=== PATIENT | male | born 1940 | race Caucasian/White ===

== ENCOUNTER 2017-08-09 11:06 | Emergency (ER) | payer MEDICARE, BC ==
[2017-08-09 12:04] LABS: Hematocrit 37 % (42-52); Hemoglobin 11.5 g/dl (14.0-18.0); Mean Corpuscular HGB Conc 31 g/dl (31-36); Mean Corpuscular Hemoglobin 25 pg (27-31); Mean Corpuscular Volume 82 fL (80-94); Mean Platelet Volume 8 um3 (7.4-10.4); Red Blood Count 4.57 10^6/ul (4.0-5.4); Red Cell Distribution Width 33 % (10.5-15); White Blood Count 54.2 10^3/ul (3.5-10.8)
[2017-08-09 12:06] LABS: Comments Flag Yes
[2017-08-09 12:19] LABS: BUN/Creatinine Ratio 21.4 (8-20); Calcium 8.4 mg/dL (8.6-10.3); EGFR African American 90.8 (>60); EGFR Non-African American 70.6 (>60); Potassium 4.2 mmol/L (3.5-5.0)
[2017-08-09 12:35] VITALS: BP 122/66
--- NOTE | 2017-08-09 12:36 | RAD ---
HISTORY: Left calf pain COMPARISONS: None relevant TECHNIQUE: Multiple transverse and longitudinal ultrasound images were obtained of the left lower extremity from the level of the common femoral vein inferiorly through to the infrapopliteal veins using grayscale, color Doppler, and spectral Doppler imaging with and without compression and with augmentation. Comparison images were obtained of the contralateral common femoral vein. FINDINGS: VEINS: There is chronic appearing nonocclusive thrombus of the left greater saphenous vein, 1.3 cm from the confluence of the common femoral vein. The remainder of the venous system of the left lower extremity is compressible throughout its course, with normal flow on color Doppler imaging and normal response to augmentation on spectral Doppler imaging. SOFT TISSUES: Unremarkable. OTHER FINDINGS: None. IMPRESSION: 1. CHRONIC APPEARING THROMBUS OF THE LEFT GREATER SAPHENOUS VEIN 1.3 CM FROM THE CONFLUENCE WITH THE COMMON FEMORAL VEIN. 2. OTHERWISE, NO LEFT LOWER EXTREMITY DEEP VEIN THROMBOSIS
[2017-08-09] MEDS ORDERED: Rivaroxaban TAB(*) 15 MG PO ONE (13:45)
[2017-08-09 14:12] LABS: Add Diff/Slide Review? Manual Diff Added
[2017-08-09 14:55] LABS: Immature Granulocytes 2 % (0-9); Neutrophil % 89 % (38-83)
[2017-08-09 14:56] LABS: Add Path Review? YES; Hypochromasia 1+
--- NOTE | 2017-08-09 22:05 | ED ---
Arlin Carr Thomas, scribed for Catracho Greenwood MD on 08/09/17 at 1124 . Lower Extremity - HPI Summary HPI Summary: The pt is a 76 y/o M presenting to the ED c/o left calf pain that began two days ago. The pain is rated 5/10. The left calf pain is constant, but it is aggravated by ambulation, weight bearing, and palpation. The pain is alleviated by nothing. The patient has treated the pain with elevation prior to arrival. Pt additionally c/o swelling to his entire LLE that began two days ago but spontaneously resolved. Pt denies CP and SOB. Patient denies any known trauma to his left leg. PMHx includes stomach cancer and he is under chemotherapy. PSHx includes a stent in the patients left groin. FHx includes DVT. The patient is not anticoagulated. - History of Current Complaint Chief Complaint: EDExtremityLower Stated Complaint: LT CALF/LEG PAIN Hx Obtained From: Patient Onset of Pain: Days - 2 Onset/Duration: Still Present Severity Currently: Moderate Pain Intensity: 5 Pain Scale Used: 0-10 Numeric Timing: Constant Location: Is Discrete @ - Left calf Associated Signs And Symptoms: Positive: Swelling - to LLE. Negative: Other - CP, SOB Aggravating Factor(s): Ambulation, Weight Bearing, Other - Palpation Alleviating Factor(s): Nothing - Allergies/Home Medications Allergies/Adverse Reactions: Allergies Allergy/AdvReac Type Severity Reaction Status Date / Time Amiodarone Allergy Hallucinati Verified 02/21/16 11:01 ons PMH/Surg Hx/FS Hx/Imm Hx Previously Healthy: No - Stomach cancer Endocrine/Hematology History: Denies: Hx Anticoagulant Therapy Cardiovascular History: Reports: Other Cardiovascular Problems/Disorders - Hx blood clot posterior neck; NEGATIVE: DVT Sensory History: Denies: Hx Legally Blind - Cancer History Cancer Type, Location and Year: Stomach cancer - Surgical History Surgery Procedure, Year, and Place: stent in left groin Infectious Disease History: No Infectious Disease History: Denies: Hx of Known/Suspected MRSA, Traveled Outside the [place] in Last 30 Days - Family History Known Family History: Positive: Other - DVT - Social History Lives: With Family Alcohol Use: None Substance Use Type: Reports: None Smoking Status (MU): Unknown if Ever Smoked Review of Systems Negative: Fever, Chills Negative: Erythema - eyes Negative: Sore Throat Negative: Chest Pain Negative: Shortness Of Breath, Cough Negative: Abdominal Pain, Vomiting, Nausea Negative: dysuria, hematuria Positive: Other - Left calf pain, LLE swelling (onset 2 days ago with spontaneous resolution). Negative: Myalgia, Edema - legs Negative: Rash Neurological: Other - NEGATIVE: dizziness All Other Systems Reviewed And Are Negative: Yes Physical Exam - Summary Physical Exam Summary: Constitutional: Well-developed, Well-nourished, Alert. (-) Distressed Skin: Warm, Dry HENT: Normocephalic; Atraumatic Eyes: Conjunctiva normal Neck: Musculoskeletal ROM normal neck. (-) JVD, (-) Stridor, (-) Tracheal deviation Cardio: Rhythm regular, rate normal, Heart sounds normal; Intact distal pulses; The pedal pulses are 2+ and symmetric. Radial pulses are 2+ and symmetric. (-) Murmur Pulmonary/Chest wall: Effort normal. (-) Respiratory distress, (-) Wheezes, (-) Rales Abd: Soft, (-) Tenderness, (-) Distension, (-) Guarding, (-) Rebound Musculoskeletal: The patient has posterior calf pain on the left side. There is no appreciable edema. Lymph: (-) Cervical adenopathy Neuro: Alert, Oriented x3 Psych: Mood and affect Normal Triage Information Reviewed: Yes Vital Signs On Initial Exam: Initial Vitals Temp Pulse Resp BP Pulse Ox 98.7 F 74 18 145/80 98 08/09/17 11:09 08/09/17 11:09 08/09/17 11:09 08/09/17 11:09 08/09/17 11:09 Vital Signs Reviewed: Yes Diagnostics - Vital Signs Vital Signs Temp Pulse Resp BP Pulse Ox 08/09/17 11:09 98.7 F 74 18 145/80 98 - Laboratory Result Diagrams: 08/09/17 11:50 08/09/17 11:50 Lab Statement: Any lab studies that have been ordered have been reviewed, and results considered in the medical decision making process. - Additional Comments Diagnostic Additional Comments: Venous Doppler of the LLE. Interpreted by radiologist. Impression: 1. CHRONIC APPEARING THROMBUS OF THE LEFT GREATER SAPHENOUS VEIN 1.3 CM FROM THE CONFLUENCE WITH THE COMMON FEMORAL VEIN. 2. OTHERWISE, NO LEFT LOWER EXTREMITY DEEP VEIN THROMBOSIS. ED Physician has reviewed this report and agrees. Re-Evaluation - Re-Evaluation First Eval Re-Evaluation Time: 13:42 Change: Unchanged Comment: I confirmed that the patient is taking Neulasta. Lower Extremity Course/Dx - Course Assessment/Plan: The pt is a 76 y/o M presenting to the ED c/o left calf pain that began two days ago. The pain is rated 5/10. The left calf pain is constant , but it is aggravated by ambulation, weight bearing, and palpation. The pain is alleviated by nothing. The patient has treated the pain with elevation prior to arrival. Pt additionally c/o swelling to his entire LLE that began two days ago but spontaneously resolved. Pt denies CP and SOB. Patient denies any known trauma to his left leg. PMHx includes stomach cancer and he is under chemotherapy. PSHx includes a stent in the patients left groin. FHx includes DVT. The patient is not anticoagulated. Bloodwork shows WBC 54.2, Hgb 11.5, Hct 37, Sodium 132, Chloride 100, and Calcium 8.4. Venous Doppler of the LLE shows 1. CHRONIC APPEARING THROMBUS OF THE LEFT GREATER SAPHENOUS VEIN 1.3 CM FROM THE CONFLUENCE WITH THE COMMON FEMORAL VEIN. 2. OTHERWISE, NO LEFT LOWER EXTREMITY DEEP VEIN THROMBOSIS. The UpToDate treatment algorithm for superficial venous thrombus was utilized. Because the thrombus is within 5cm of the saphenofemoral junction, we will initiate anticoagulation. Even though this thrombus appears radiographically chronic, the symptoms were acute. Treatment guidelines are for 45 days and then a repeat examination. I consulted with Dr. Beck, the patients primary care physician, who agrees with anticoagulation for this presentation. I also consulted with Dr. Goel, oncology, who states that the patients white blood cell count is mostly likely responding to Neulasta. I confirmed this with the patient. In the ED course the patient was started on Xarelto. The patient is diagnosed with superficial venous thrombus. The patient is instructed to follow up with Dr. Angela in 2-3 days. The patient is prescribed Xarelto. Patient is agreeable with this plan. - Diagnoses Provider Diagnoses: Superficial venous thrombus - Physician Notifications Discussed Care Of Patient With: Sahil Beck Time Discussed With Above Provider: 13:26 Instructed by Provider To: Other - I consulted with Dr. Beck, the patient's primary care physician, who agrees with anticoagulation given this presentation. I also consluted at 13:[address] Goel, oncology, who beleives the patient's white blood cell count is responding with Neulasta, so we will verify that with the patient. Discharge - Discharge Plan Condition: Stable Disposition: HOME Prescriptions: Rivaroxaban [Xarelto Starter Pack 15 & 20 mg] 1 tab PO SEE INSTRUCTIONS #1 packet Patient Education Materials: Deep Venous Thrombosis (ED) Additional Instructions: Return to the emergency department immediately if you begin to experience chest pain shortness of breath, or new or worsening symptoms. Follow up with Dr. Angela in 2-3 days. The documentation as recorded by the Arlin salazar Thomas accurately reflects the service I personally performed and the decisions made by me, Catracho Greenwood MD.
== END 2017-08-09 14:02 | disposition home or self-care (01) ==
LOC: ED 11:06
DX: I82.812 Embolism and thrombosis of superficial veins of left lower extremity (principal); M79.662 Pain in left lower leg
CPT/HCPCS: 36415; 80048; 85025; 85060; 85610; 85730; 99282

== ENCOUNTER 2018-01-06 14:10 | Emergency (ER) | payer MEDICARE, BC ==
[2018-01-06 15:22] LABS: Hematocrit 39 % (42-52); Hemoglobin 12.8 g/dl (14.0-18.0); Mean Corpuscular HGB Conc 33 g/dl (31-36); Mean Corpuscular Hemoglobin 31 pg (27-31); Mean Corpuscular Volume 93 fL (80-94); Mean Platelet Volume 7.5 um3 (7.4-10.4); Platelet Count 156 10^3/ul (150-450); Red Blood Count 4.16 10^6/ul (4.0-5.4); Red Cell Distribution Width 25 % (10.5-15); White Blood Count 18.4 10^3/ul (3.5-10.8)
[2018-01-06 15:45] LABS: ABS Basophils 0.1 10^3/ul (0-0.2); ABS Eosinophils 0 10^3/ul (0-0.6); ABS Lymphocytes 0.8 10^3/ul (1.0-4.8); ABS Monocytes 0.7 10^3/ul (0-0.8); ABS Neutrophils 16.7 10^3/ul (1.5-7.7); ABS Nucleated RBC 0 10^3/ul; Eosinophil % 0 % (0-6); Lymphocyte % 4.6 % (25-47); Nucleated Red Blood Cells % 0.2
[2018-01-06 15:51] LABS: EGFR Non-African American 89.1 (>60)
[2018-01-06] MEDS ORDERED: Morphine INJ* 4 MG/ML 1 ML SYRINGE (NEW SYRINGE VERSION) IV ONE (17:04)
[2018-01-06] MEDS ORDERED: Ondansetron INJ* 2 MG/ML VIAL IV ONE (17:04)
[2018-01-06] MEDS ORDERED: Dexamethasone IV* 4 MG/ML 1 ML (4 MG) IV SLOW PU ONE (17:04)
[2018-01-06] MEDS ORDERED: NS 0.9% 1000 ML* 1,000 ML IV ONE (17:18)
[2018-01-06] MEDS ORDERED: Morphine VIAL* 4 MG/ML VIAL (1 ml vial) IV ONE (17:33)
--- NOTE | 2018-01-06 17:51 | RAD ---
Indication: Bilateral flank/low back pain. Nausea. Recently finished chemotherapy. Stomach cancer. Comparison: No relevant prior exams available on the [facility] [place] for comparison. Technique: Noncontrast CT lumbar sacral spine. Multiplanar reformation. Report: Negative for acute vertebral body or posterior element fracture. Chronic appearing mild osteoporotic compression deformity at the superior endplate of the L3 vertebral body. Negative for significant spondylolisthesis at any level. Bone density appears decreased throughout. No suspicious focal osseous lesions evident. 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 Disc space narrowing is most prominent at L1-L2 where it is severe with suggestion of ankylosis. T12-L1: Unremarkable disc level for age without acquired spinal stenosis. L1-L2: Unremarkable disc level for age without acquired spinal stenosis. L2-L3: Mild annular disc bulge and facet ligamentous hypertrophic arthropathy results in mild acquired central canal and mild bilateral foraminal stenosis. L3-L4: Mild annular disc bulge and facet ligamentous hypertrophic arthropathy results in slight central canal and moderate bilateral foraminal stenosis. L4-L5: Posterior central to RIGHT foraminal moderate disc protrusion results in moderate impression on the RIGHT anterior margin of the thecal sac. Degenerative spondylosis and facet joint osteoarthritis results in moderate bilateral foraminal stenosis. L5-S1: Mild annular disc bulge results in only mild impression on the ventral margin of the thecal sac. Degenerative spondylosis and facet joint osteoarthritis results in moderately severe bilateral foraminal stenosis. Atherosclerotic calcification of the abdominal aorta and iliac arteries. IMPRESSION: 1. Negative for acute vertebral body or posterior element fracture. Chronic appearing mild osteoporotic compression deformity at the superior endplate of the L3 vertebral body. 2. 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 3. Bone density appears decreased throughout. No suspicious focal osseous lesions evident. If there is persistent clinical concern for potential bone metastasis consider follow-up whole body bone scan for further assessment.
[2018-01-06] MEDS ORDERED: Orphenadrine Citrate IV* 30 MG/ML 2 ML VIAL IV ONE (18:19)
[2018-01-06] MEDS ORDERED: oxyCODONE/Acetamin 5/325 MG* TAB PO ONE (18:19)
[2018-01-06 18:33] LABS: Urine Appearance Clear; Urine Blood Negative (Negative); Urine Color Yellow; Urine Ketones Negative (Negative); Urine Protein 1+(30 mg/dL) (Negative); Urine Specific Gravity 1.027 (1.010-1.030); Urine Urobilinogen Negative (Negative)
--- NOTE | 2018-01-06 18:57 | ED ---
Pravin Carr Angela, scribed for Glen Wheeler MD on 01/06/18 at 1703 . Back Pain - HPI Summary HPI Summary: This pt is a 77 y/o male presenting to [facility] c/o back pain for the past 3-4 days. Pt denies recent trauma, fall or heavy lifting. His pain is aggravated with movement and his pain is alleviated with rest. He denies nausea, vomiting, diarrhea, fever, chills. Pt has been using heat and taking aspiring without relief. He denies urinary or bowel dysfunction, weakness, numbness or tingling in LE. Pt states he just finished chemotherapy today (in [place]) for stomach cancer. - History of Current Complaint Chief Complaint: EDFlankPain Stated Complaint: FLANK PAIN Time Seen by Provider: 01/06/18 16:54 Hx Obtained From: Patient Onset/Duration: Lasting Days, Still Present Onset/Duration: Started Days Ago, Still Present Timing: Lasting Days Back Pain Location: Is Discrete @ - low back Severity Currently: Severe Pain Intensity: 10 Pain Scale Used: 0-10 Numeric Aggravating Symptom(s): Movement Alleviating Symptom(s): Nothing Associated Signs And Symptoms: Negative: Fever, Weakness, Numbness, Tingling, Bladder Incontinence, Bowel Incontinence - Allergies/Home Medications Allergies/Adverse Reactions: Allergies Allergy/AdvReac Type Severity Reaction Status Date / Time amiodarone Allergy Hallucinati Verified 01/06/18 14:38 ons Home Medications: Home Medications Albuterol HFA INHALER* [Ventolin HFA Inhaler*] 2 puff INH Q4H PRN 01/06/18 [ History Confirmed 01/06/18] Budesonide/Formote 160/4.5(NF) [Symbicort 160/4.5 (NF)] 2 puff INH BID 01/06/18 [History Confirmed 01/06/18] Enoxaparin(*) [Lovenox(*)] 80 mg SUBCUT DAILY 01/06/18 [History Confirmed ] Ezetimibe TAB* [Zetia TAB*] 10 mg PO DAILY 01/06/18 [History Confirmed 01/06/18] Ferrous Sulfate TAB* 325 mg PO DAILY 01/06/18 [History Confirmed 01/06/18] Ibuprofen TAB* [Advil TAB*] 200 mg PO Q6H PRN 01/06/18 [History Confirmed ] Multivitamins/Minerals TAB* [Theragran/minerals TAB*] 1 tab PO DAILY 01/06/18 [ History Confirmed 01/06/18] Omeprazole CAP* [Prilosec CAP* 20 MG] 40 mg PO BID 01/06/18 [History Confirmed 01/06/18] Ondansetron TAB* [Zofran 4 MG Tab*] 4 mg PO TID PRN 01/06/18 [History Confirmed 01/06/18] Potassium Chlor TAB* [Klor Con ER TAB*] 20 meq PO DAILY 01/06/18 [History Confirmed 01/06/18] Pravastatin (NF) [Pravachol (NF)] 40 mg PO DAILY 01/06/18 [History Confirmed ] Tiotropium CAP.INH* [Spiriva CAP.INH*] 1 cap.inh INH DAILY 01/06/18 [History Confirmed 01/06/18] PMH/Surg Hx/FS Hx/Imm Hx Endocrine/Hematology History: Denies: Hx Anticoagulant Therapy Cardiovascular History: Reports: Other Cardiovascular Problems/Disorders - Hx blood clot posterior neck; NEGATIVE: DVT Sensory History: Denies: Hx Legally Blind Opthamlomology History: Denies: Hx Legally Blind - Cancer History Cancer Type, Location and Year: Stomach cancer - Surgical History Surgery Procedure, Year, and Place: stent in left groin Infectious Disease History: No Infectious Disease History: Denies: Hx of Known/Suspected MRSA, Traveled Outside the [place] in Last 30 Days - Family History Known Family History: Positive: Other - DVT - Social History Alcohol Use: None Substance Use Type: Reports: None Smoking Status (MU): Unknown if Ever Smoked Review of Systems Negative: Fever, Chills Negative: incontinence Musculoskeletal: Other - back pain Negative: Weakness, Paresthesia, Numbness All Other Systems Reviewed And Are Negative: Yes Physical Exam - Summary Physical Exam Summary: VITAL SIGNS: Reviewed. GENERAL: Patient is a well-developed and nourished male who is lying comfortable in the stretcher. Patient is not in any acute respiratory distress. HEAD AND FACE: No signs of trauma. No ecchymosis, hematomas or skull depressions. No sinus tenderness. EYES: PERRLA, EOMI x 2, No injected conjunctiva, no nystagmus. EARS: Hearing grossly intact. Ear canals and tympanic membranes are within normal limits. MOUTH: Oropharynx within normal limits. NECK: Supple, trachea is midline, no adenopathy, no JVD, no carotid bruit, no c- spine tenderness, neck with full ROM. CHEST: Symmetric, no tenderness at palpation LUNGS: Clear to auscultation bilaterally. No wheezing or crackles. CVS: Regular rate and rhythm, S1 and S2 present, no murmurs or gallops appreciated. ABDOMEN: Soft, non-tender. No signs of distention. No rebound no guarding, and no masses palpated. Bowel sounds are normal. MSK: FROM in all major joints, no edema, no cyanosis or clubbing. Some tenderness in the lumbar spine. Straight leg raise is negative. NEURO: Alert and oriented x 3. No acute neurological deficits. Speech is normal and follows commands. SKIN: Dry and warm Triage Information Reviewed: Yes Vital Signs On Initial Exam: Initial Vitals Temp Pulse Resp BP Pulse Ox 98 F 66 16 151/99 98 01/06/18 14:39 01/06/18 14:39 01/06/18 14:39 01/06/18 14:39 01/06/18 14:39 Vital Signs Reviewed: Yes Diagnostics - Vital Signs Vital Signs Temp Pulse Resp BP Pulse Ox 01/06/18 14:39 98 F 66 16 151/99 98 - Laboratory Lab Results: Lab Results 01/06/18 01/06/18 01/06/18 Range/Units 14:51 14:51 14:51 WBC 18.4 H (3.5-10.8) 10^3/ul RBC 4.16 (4.0-5.4) 10^6/ul Hgb 12.8 L (14.0-18.0) g/dl Hct 39 L (42-52) % MCV 93 (80-94) fL MCH 31 (27-31) pg MCHC 33 (31-36) g/dl RDW 25 H (10.5-15) % Plt Count 156 (150-450) 10^3/ul MPV 7.5 (7.4-10.4) um3 Neut % (Auto) 91.1 H (38-83) % Lymph % (Auto) 4.6 L (25-47) % Calhoun % (Auto) 3.7 (0-7) % Eos % (Auto) 0 (0-6) % Baso % (Auto) 0.6 (0-2) % Absolute Neuts (auto) 16.7 H (1.5-7.7) 10^3/ul Absolute Lymphs (auto) 0.8 L (1.0-4.8) 10^3/ul Absolute Monos (auto) 0.7 (0-0.8) 10^3/ul Absolute Eos (auto) 0 (0-0.6) 10^3/ul Absolute Basos (auto) 0.1 (0-0.2) 10^3/ul Absolute Nucleated RBC 0 10^3/ul Nucleated RBC % 0.2 Anisocytosis 2+ Acanthocytes (Spur) 1+ Hem Pathologist Commnt Pending Sodium 132 L (139-145) mmol/L Potassium 4.4 (3.5-5.0) mmol/L Chloride 97 L (101-111) mmol/L Carbon Dioxide 24 (22-32) mmol/L Anion Gap 11 (2-11) mmol/L BUN 63 H (6-24) mg/dL Creatinine 0.84 (0.67-1.17) mg/dL Est GFR ( Amer) 114.6 (>60) Est GFR (Non-Af Amer) 89.1 (>60) BUN/Creatinine Ratio 75.0 H (8-20) Glucose 116 H (70-100) mg/dL Lactic Acid 2.1 H* (0.5-2.0) mmol/L Calcium 8.7 (8.6-10.3) mg/dL Total Bilirubin 1.70 H (0.2-1.0) mg/dL AST 53 H (13-39) U/L ALT 51 (7-52) U/L Alkaline Phosphatase 274 H (34-104) U/L C-Reactive Protein 5.47 H (< 5.00) mg/L Total Protein 6.3 L (6.4-8.9) g/dL Albumin 3.7 (3.2-5.2) g/dL Globulin 2.6 (2-4) g/dL Albumin/Globulin Ratio 1.4 (1-3) Lipase 14 (11.0-82.0) U/L Result Diagrams: 01/06/18 14:51 01/06/18 14:51 Lab Statement: Any lab studies that have been ordered have been reviewed, and results considered in the medical decision making process. - CT Lumbar spine CT CT Interpretation: Positive (See Comments) - IMPRESSION: 1. Negative for acute vertebral body or posterior element fracture. Chronic appearing mild osteoporotic compression deformity at the superior endplate of the L3 vertebral body. 2. 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 3. Bone density appears decreased throughout. No suspicious focal osseous lesions evident. If there is persisten clinical concern for potential bone metastasis consider follow-up whole body bone scan for further assessment. Dr. Wheeler has reviewed this radiology report. CT Interpretation Completed By: Radiologist Re-Evaluation - Re-Evaluation First Eval Re-Evaluation Time: 18:11 Comment: Pain has improved. Pt ambulated in the ED without difficulty and minimal pain. He will be discharged home. Back Pain Course/Dx - Course Assessment/Plan: This pt is a 77 y/o male presenting to [facility] c/o back pain for the past 3-4 days. Pt denies recent trauma, fall or heavy lifting. His pain is aggravated with movement and his pain is alleviated with rest. He denies nausea , vomiting, diarrhea, fever, chills. Pt has been using heat and taking aspiring without relief. He denies urinary or bowel dysfunction, weakness, numbness or tingling in LE. Pt states he just finished chemotherapy today (in [place]) for stomach cancer. Test results shows WBC of 18.4, slight anemia, increased lactic acid, CRP of 5.47. Lumbar spine CT shows 1. Negative for acute vertebral body or posterior element fracture. Chronic appearing mild osteoporotic compression deformity at the superior endplate of the L3 vertebral body. 2. 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 3. Bone density appears decreased throughout. No suspicious focal osseous lesions evident. If there is persistent clinical concern for potential bone metastasis consider follow-up whole body bone scan for further assessment. I believe the WBC count has increased because the pt was given injections, pt does not remember the name but it was possibly neupogen. I have no suspicion for cauda equina since he has no urinary or fecal dysfunction. In the ED course the pt was given Decadron and Morphine, and his symptoms improved. The pt is able to ambulate on his own with minimal pain. The pt was also given IV fluids for dehydration and Zofran for the nausea. At this time the pain is 2/10 in severity and he is able to ambulate on his own. As CT of lumbar spine he has osteoporotic compression deformities. Therefore the pt will be discharged home with follow up from his PCP. I will give the pt prescriptions for Percocet, Robaxin, and Medrol dosepak. Pt was instructed to return to the emergency department if symptoms return or worsen. I discussed the test results and findings with the pt. I have no suspicion diskitis or any other infection since the pts symptoms have improved and he denies fever or chills. However, the pt is instructed to return to the ED if symptoms return or worsen. Pt understands and agrees. Pt is hemodynamically stable, alert and oriented x3. - Diagnoses Differential Diagnosis/HQI/PQRI: Positive: Arthritis, Cauda Equina Syndrome, Compressive Cord Syndrome, Herniated Disc, Neoplasm, Osteoporosis, Strain, Sprain Provider Diagnoses: Back pain, Osteoporosis, Dehydration Discharge - Sign-Out/Discharge Documenting (check all that apply): Discharge - discharge to home - Discharge Plan Condition: Stable Disposition: HOME Prescriptions: Methocarbamol TAB* [Robaxin 500 MG TAB*] 750 mg PO QID PRN #12 tab PRN Reason: Pain methylPREDNISolone [Medrol Dosepak 4 MG*] 0 mg PO .SEE JACKSON INSTRUCTION #1 jackson oxyCODONE/Acetamin 5/325 MG* [Percocet 5/325 TAB*] 1 tab PO Q6H PRN #12 tab MDD 4 PRN Reason: Pain Patient Education Materials: Back Pain (ED) Referrals: Sahil Beck MD [Primary Care Provider] - 3 Days Additional Instructions: Please follow up with your primary care provider. RETURN TO THE ED FOR ANY NEW OR WORSENING SYMPTOMS. - Billing Disposition and Condition Condition: STABLE Disposition: HOME The documentation as recorded by the Pravin salazar Angela accurately reflects the service I personally performed and the decisions made by me, Glen Wheeler MD.
[2018-01-06 19:30] VITALS: BP 144/76
== END 2018-01-06 19:30 | disposition home or self-care (01) ==
LOC: ED 14:10
DX: M54.5 Low back pain (principal); M81.0 Age-related osteoporosis without current pathological fracture; E86.0 Dehydration; M47.9 Spondylosis, unspecified; R10.9 Unspecified abdominal pain
CPT/HCPCS: 36415; 72131; 80053; 81003; 81015; 83605; 83690; 85025; 85060; 86140; 87086; 96360; 96374; 96375; 99284; A9270-GY; J1100; J1642; J2270; J2360; J2405

== ENCOUNTER 2018-01-19 06:48 | Inpatient (IN) | payer MEDICARE, BC ==
[2018-01-19] MEDS ORDERED: fentaNYL* 50 MCG/ML 2 ML VIAL (100 MCG VIAL) IV SLOW PU ONE (07:32)
[2018-01-19] MEDS ORDERED: fentaNYL* 50 MCG/ML 5 ML VIAL (250 MCG VIAL) ONE (07:48)
--- NOTE | 2018-01-19 08:36 | RAD ---
Indication: Fall onto RIGHT hip. Severe pain and limitation range of motion. Assess for fracture. Comparison: No relevant prior exams available on the [facility] for comparison. Technique: Supine AP pelvis and AP and crosstable lateral views RIGHT hip. Report: The RIGHT hip is normally located. No radiographic evidence for RIGHT hip or pelvic fracture or pelvic joint diastases. The RIGHT hip is remarkable for severe osteophytosis and superior joint space narrowing with partial loss of femoral head sphericity and subchondral sclerosis and cystic change consistent with Kellgren and Nomi grade 4 osteoarthritis. Unremarkable appearance of the partially visualized LEFT total hip stasis in the AP projection. Unremarkable soft tissue contours. Peripheral vascular calcifications. Indwelling suprapubic catheter. IMPRESSION: 1. No radiographic evidence for RIGHT hip fracture. As x-rays may be negative with nondisplaced hip fracture if there is persistent clinical concern MRI or in setting of contraindication to MRI or limitation in emergent access to MRI CT would be suggested. 2. 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
--- NOTE | 2018-01-19 08:36 | RAD ---
HISTORY: Preop, hip fracture COMPARISONS: July 03, 2009 VIEWS: 1: frontal portable view of the chest at 8:04 AM FINDINGS: LINES AND TUBES: A right-sided pacemaker is noted. Left-sided chest port is noted, left internal jugular vein approach with the tip overlying the cavoatrial junction. CARDIOMEDIASTINAL SILHOUETTE: The cardiomediastinal silhouette is normal for portable technique. PLEURA: There is a large layering left pleural effusion. There is focal pleural thickening on the right. LUNG PARENCHYMA: There is patchy alveolar opacification of the right lower lung. ABDOMEN: The upper abdomen is clear. There is no subphrenic gas. BONES AND SOFT TISSUES: The patient is status post median sternotomy. IMPRESSION: 1. LARGE LAYERING LEFT PLEURAL EFFUSION. 2. PATCHY AIRSPACE DISEASE OF THE RIGHT LOWER LUNG. 3. FOCAL PLEURAL THICKENING ON THE RIGHT. 4. LINES AND TUBES ABOVE.
[2018-01-19 08:58] LABS: Hematocrit 27 % (42-52); Hemoglobin 9.1 g/dl (14.0-18.0); Mean Corpuscular HGB Conc 33 g/dl (31-36); Mean Corpuscular Hemoglobin 32 pg (27-31); Mean Corpuscular Volume 95 fL (80-94); Mean Platelet Volume 8.7 um3 (7.4-10.4); Platelet Count 82 10^3/ul (150-450); Red Blood Count 2.86 10^6/ul (4.0-5.4); Red Cell Distribution Width 23 % (10.5-15); White Blood Count 18.5 10^3/ul (3.5-10.8)
--- NOTE | 2018-01-19 09:01 | ED ---
Complex/Multi-Sys Presentation <Ron Catalan - Last Filed: 01/25/18 08:39> - HPI Summary HPI Summary: Patient here with fall earlier this morning. Reports he was attempting to put a glass of water on his kitchen table when he felt weak and fell. He denies loss of consciousness and does not believe he hit his head. Currently he denies headache, change in vision, tinnitus, photophobia, nausea, vomiting, memory loss. He does have neck pain on the sides and down the center. reports he fell onto the floor which was carpeted -she does not believe he struck his body against any objects. He is reporting right hip pain as he admits he fell here. This is worse with internal rotation and flexion. Denies numbness tingling or weakness. Also has some mid lower back pain which is chronic. Recent CT of this area revealed degenerative disc disease per daughter (had imaging at [facility] in [place]). He denies chest pain, shortness of breath, abdominal pain, thoracic back pain, upper extremity pain. Here he reports his neck actually feels a little better with bilateral over head arm reaching. Denies numbness tingling or weakness into his upper extremities. Patient's additional medical history includes stomach cancer. He has been treated with chemotherapy recently and completed his course a few weeks ago. He admits his appetite has been decreased since this but denies nausea and vomiting. He has had diarrhea. Reports that he had an episode of bowel urgency prior to falling this morning. He wasn't able to make it to the bathroom in time although he was hurrying. He finally got to the bathroom and cleaned himself up before going up to the kitchen to have a glass of water as previously mentioned. Along with his cancer history, his reports a bone scan was done and a recent hospital admission in [place] and there is concern of possible metastatic disease in the bone -final results have not been reported yet. During his recent hospital admission to [place], he was found to have a "low blood count" and required both fluid as well as blood transfusion. In addition to his cancer his medical history is pertinent for cardiac disease requiring him to have a valve replacement in the past as well as a pacemaker implanted. He also struggles with "fluid issues". He was on Lovenox however with his recent low blood count this was stopped - he has not use this in the past 3 days. He was also diagnosed with possible pneumonia while at [place]. He received antibiotics through IV and is currently taking an outpatient course of levaquin. - History Of Current Complaint Hx Obtained From: Patient, Family/Nail Expert - , daughter <Jayne Paredes - Last Filed: 02/04/18 06:19> - History Of Current Complaint Chief Complaint: EDHipPelvisInjury Time Seen by Provider: 01/19/18 08:06 - Allergies/Home Medications Allergies/Adverse Reactions: Allergies Allergy/AdvReac Type Severity Reaction Status Date / Time amiodarone Allergy Hallucinati Verified 01/06/18 14:38 ons Home Medications: Home Medications Cholecalciferol TAB* [Vitamin D TAB*] 1,000 unit PO DAILY 01/19/18 [History Confirmed 01/19/18] Docusate CAP* [Colace Cap*] 100 mg PO BID 01/19/18 [History Confirmed 01/19/18] Loperamide CAP* [Imodium CAP*] 2 mg PO Q4H PRN 01/19/18 [History Confirmed 01/19] Methocarbamol TAB* [Robaxin 500 MG TAB*] 500 mg PO QID PRN 01/19/18 [History Confirmed 01/19/18] PMH/Surg Hx/FS Hx/Imm Hx Previously Healthy: Yes Endocrine/Hematology History: Denies: Hx Anticoagulant Therapy - stopped lovenox 3 days ago Cardiovascular History: Reports: Hx Pacemaker/ICD, Hx Valvular Heart Disease - valve replacement, Other Cardiovascular Problems/Disorders - Hx blood clot posterior neck; NEGATIVE: DVT GI History: Reports: Other GI Disorders - stomach cancer Musculoskeletal History: Reports: Hx Back Problems - DDD lumbar spine Sensory History: Denies: Hx Legally Blind Opthamlomology History: Denies: Hx Legally Blind - Cancer History Cancer Type, Location and Year: Stomach cancer Hx Chemotherapy: Yes - Surgical History Surgery Procedure, Year, and Place: stent in left groin Infectious Disease History: No Infectious Disease History: Denies: Hx of Known/Suspected MRSA, Traveled Outside the [place] in Last 30 Days - Family History Known Family History: Positive: Other - DVT - Social History Occupation: Retired Lives: With Family Alcohol Use: None Hx Substance Use: No Substance Use Type: Reports: None Smoking Status (MU): Unknown if Ever Smoked <Jayne Paredes - Last Filed: 02/04/18 06:19> Review of Systems Constitutional: Negative Eyes: Negative ENT: Negative Cardiovascular: Negative Respiratory: Negative Gastrointestinal: Other - decreased appetite Genitourinary: Negative Negative: incontinence Positive: Arthralgia, Myalgia, Decreased ROM Skin: Negative Neurological: Negative Psychological: Normal All Other Systems Reviewed And Are Negative: Yes <Jayne Paredes - Last Filed: 02/04/18 06:19> Physical Exam Vital Signs On Initial Exam: Initial Vitals Temp Pulse Resp BP Pulse Ox 98.9 F 71 16 110/67 92 01/19/18 07:05 01/19/18 07:05 01/19/18 07:05 01/19/18 07:05 01/19/18 07:05 <AlaynaAndreyk - Last Filed: 01/25/18 08:39> Triage Information Reviewed: Yes Vital Signs On Initial Exam: Initial Vitals Temp Pulse Resp BP Pulse Ox 98.9 F 71 16 110/67 92 01/19/18 07:05 01/19/18 07:05 01/19/18 07:05 01/19/18 07:05 01/19/18 07:05 Vital Signs Reviewed: Yes Appearance: Positive: Well-Appearing, Pain Distress - mild to moderate, Thin Skin: Positive: Warm, Skin Color Reflects Adequate Perfusion, Dry - no erythema , no ecchymosis Head/Face: Positive: Normal Head/Face Inspection - atraumatic Eyes: Positive: Normal, EOMI, RICHARD - No photophobia, Conjunctiva Clear ENT: Positive: Normal ENT inspection, Hearing grossly normal, Pharynx normal, TMs normal - No hemotympanum. Negative: Nasal drainage Dental: Negative: Dental Fracture @ Neck: Positive: Supple, Tenderness @ - Paracervical muscles Respiratory/Lung Sounds: Positive: Clear to Auscultation, Breath Sounds Present. Negative: Rales, Rhonchi, Stridor, Tracheal Deviation, Wheezes, Unable to speak in full sentences, Fatigue Cardiovascular: Positive: Pulses are Symmetrical in both Upper and Lower Extremities, Murmur, Other - Pacer visible under the skin within chest, S1, S2 Abdomen Description: Positive: Nontender, No Organomegaly, Soft Bowel Sounds: Positive: Present Musculoskeletal: Positive: Limited @ - Right hip, Pain @ - Right hip pain with flexion and internal rotation while lying in bed Neurological: Positive: Normal, Sensory/Motor Intact, Alert, Oriented to Person Place, Time, CN Intact II-III Psychiatric: Positive: Normal <Jayne Paredes - Last Filed: 02/04/18 06:19> Diagnostics - Vital Signs Vital Signs Temp Pulse Resp BP Pulse Ox 01/19/18 14:39 91 25 111/71 93 01/19/18 14:09 70 18 105/64 96 01/19/18 14:00 73 19 96 01/19/18 13:39 71 16 107/68 96 01/19/18 13:09 77 18 111/69 98 01/19/18 12:41 15 01/19/18 12:39 74 103/67 93 01/19/18 12:00 85 92 01/19/18 10:39 83 22 102/67 93 01/19/18 10:09 80 23 102/66 93 01/19/18 10:00 84 25 93 01/19/18 09:55 15 01/19/18 09:39 76 21 104/68 94 01/19/18 09:09 73 27 103/70 95 01/19/18 08:39 70 28 101/67 94 01/19/18 08:29 78 21 102/65 87 01/19/18 08:09 71 98/65 74 01/19/18 08:04 70 90 01/19/18 07:50 15 01/19/18 07:39 74 110/68 93 01/19/18 07:09 75 110/67 93 01/19/18 07:06 69 81 01/19/18 07:05 98.9 F 71 16 110/67 92 - Laboratory Lab Results: Lab Results 01/19/18 01/19/18 01/19/18 Range/Units 08:40 08:40 08:40 WBC 18.5 H (3.5-10.8) 10^3/ul RBC 2.86 L (4.0-5.4) 10^6/ul Hgb 9.1 L (14.0-18.0) g/dl Hct 27 L (42-52) % MCV 95 H (80-94) fL MCH 32 H (27-31) pg MCHC 33 (31-36) g/dl RDW 23 H (10.5-15) % Plt Count 82 L D (150-450) 10^3/ul MPV 8.7 (7.4-10.4) um3 Neut % (Auto) 92.5 H (38-83) % Lymph % (Auto) 4.6 L (25-47) % [place] % (Auto) 2.5 (0-7) % Eos % (Auto) 0.1 (0-6) % Baso % (Auto) 0.3 (0-2) % Absolute Neuts (auto) 17.1 H (1.5-7.7) 10^3/ul Absolute Lymphs (auto) 0.9 L (1.0-4.8) 10^3/ul Absolute Monos (auto) 0.5 (0-0.8) 10^3/ul Absolute Eos (auto) 0 (0-0.6) 10^3/ul Absolute Basos (auto) 0.1 (0-0.2) 10^3/ul Absolute Nucleated RBC 0.1 10^3/ul Nucleated RBC % 0.5 INR (Anticoag Therapy) 1.21 H (0.77-1.02) APTT 35.3 (26.0-36.3) seconds Sodium 135 L (139-145) mmol/L Potassium 4.0 (3.5-5.0) mmol/L Chloride 101 (101-111) mmol/L Carbon Dioxide 27 (22-32) mmol/L Anion Gap 7 (2-11) mmol/L BUN 20 (6-24) mg/dL Creatinine 0.52 L (0.67-1.17) mg/dL Est GFR ( Amer) 199.2 (>60) Est GFR (Non-Af Amer) 154.9 (>60) BUN/Creatinine Ratio 38.5 H (8-20) Glucose 114 H (70-100) mg/dL Lactic Acid (0.5-2.0) mmol/L Calcium 7.4 L (8.6-10.3) mg/dL Magnesium 1.6 L (1.9-2.7) mg/dL Total Bilirubin 0.40 (0.2-1.0) mg/dL AST 30 (13-39) U/L ALT 27 (7-52) U/L Alkaline Phosphatase 362 H (34-104) U/L Troponin I 0.15 H* (<0.04) ng/mL C-Reactive Protein 58.80 H (< 5.00) mg/L Total Protein 4.7 L (6.4-8.9) g/dL Albumin 2.6 L (3.2-5.2) g/dL Globulin 2.1 (2-4) g/dL Albumin/Globulin Ratio 1.2 (1-3) Blood Type Antibody Screen 01/19/18 01/19/18 01/19/18 Range/Units 08:40 08:40 10:15 WBC (3.5-10.8) 10^3/ul RBC (4.0-5.4) 10^6/ul Hgb (14.0-18.0) g/dl Hct (42-52) % MCV (80-94) fL MCH (27-31) pg MCHC (31-36) g/dl RDW (10.5-15) % Plt Count (150-450) 10^3/ul MPV (7.4-10.4) um3 Neut % (Auto) (38-83) % Lymph % (Auto) (25-47) % [place] % (Auto) (0-7) % Eos % (Auto) (0-6) % Baso % (Auto) (0-2) % Absolute Neuts (auto) (1.5-7.7) 10^3/ul Absolute Lymphs (auto) (1.0-4.8) 10^3/ul Absolute Monos (auto) (0-0.8) 10^3/ul Absolute Eos (auto) (0-0.6) 10^3/ul Absolute Basos (auto) (0-0.2) 10^3/ul Absolute Nucleated RBC 10^3/ul Nucleated RBC % INR (Anticoag Therapy) (0.77-1.02) APTT (26.0-36.3) seconds Sodium (139-145) mmol/L Potassium (3.5-5.0) mmol/L Chloride (101-111) mmol/L Carbon Dioxide (22-32) mmol/L Anion Gap (2-11) mmol/L BUN (6-24) mg/dL Creatinine (0.67-1.17) mg/dL Est GFR ( Amer) (>60) Est GFR (Non-Af Amer) (>60) BUN/Creatinine Ratio (8-20) Glucose (70-100) mg/dL Lactic Acid 1.0 (0.5-2.0) mmol/L Calcium (8.6-10.3) mg/dL Magnesium (1.9-2.7) mg/dL Total Bilirubin (0.2-1.0) mg/dL AST (13-39) U/L ALT (7-52) U/L Alkaline Phosphatase (34-104) U/L Troponin I 0.10 H* (<0.04) ng/mL C-Reactive Protein (< 5.00) mg/L Total Protein (6.4-8.9) g/dL Albumin (3.2-5.2) g/dL Globulin (2-4) g/dL Albumin/Globulin Ratio (1-3) Blood Type A Negative Antibody Screen Negative Result Diagrams: 01/25/18 05:10 01/25/18 05:10 Lab Statement: Any lab studies that have been ordered have been reviewed, and results considered in the medical decision making process. <Ron Catalan - Last Filed: 01/25/18 08:39> - Vital Signs Vital Signs Temp Pulse Resp BP Pulse Ox 01/19/18 07:50 15 01/19/18 07:09 75 110/67 93 01/19/18 07:06 69 81 01/19/18 07:05 98.9 F 71 16 110/67 92 - Laboratory Result Diagrams: 01/27/18 06:30 01/27/18 06:30 Lab Statement: Any lab studies that have been ordered have been reviewed, and results considered in the medical decision making process. <Jayne Paredes - Last Filed: 02/04/18 06:19> Complex Multi-Symp Course/Dx <Ron Catalan - Last Filed: 01/25/18 08:39> Course Of Treatment: 77-year-old white male with possible metastatic stomach cancer and previously low H&H requiring blood transfusion as well as diagnosis of pneumonia and on outpatient antibiotics presents with fall for what he reports as weakness of the lower extremities. Portable AP chest x-ray reveals "large layering left pleural effusion. Patchy airspace disease in the right lower lung. Focal pleural thickening of the right. Lines and tubes". Right hip x-ray "no radiographic evidence for right hip fracture. His x-rays may be negative nondisplaced hip fracture stairs or persistent call considering MRI over the setting of contraindication MRI or limited emergent case MRI CT would be suggested. 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 CT pelvis without contrast "#1. grossly nondisplaced pelvic fractures including at the junction of the right as pubis and superior pubic ramus, mid right inferior pubic ramus, and right sacral all a subtle cortical buckle insufficiency fracture. #2. Associated. Osseous hematoma including at the right obturator internus muscle measuring up to 2.1 cm transverse. Mild infiltrative hematoma at the right Retzius retropubic extraperitoneal space. Trace free pelvic fluid along the right pelvic sidewall. #3. No CT evidence for fracture of the right femoral neck". Brain CT without contrast "no acute intracranial pathology. Diffuse involution change with chronic small vessel ischemic changes. Chronic-appearing infarcts of the superior cerebellum. No abnormal enhancement, vasogenic edema, or space occupying lesion to suggest metastatic disease to the brain". Cervical spine CT without "nondisplaced acute fracture involving the inferior aspect of the C2 vertebral body. Mild compression fracture of the superior endplate of the C5 vertebral body likely old. Osteopenia and heterogenous decreased density in the vertebra with more focal areas of decreased density in the C5 and C6 vertebral body suspicious for metastatic disease. This can be further evaluated with an MRI of the cervical spine. Large left thyroid lobe nodule. Recommended ultrasonography for further evaluation". ECG: Normal sinus rhythm, 73 bpm, no ST elevations. Records requested from [facility] for review. Bone scan reveals metastatic disease. Reviewed labs to compare to labs drawn here today. See below: Labs reveal an elevated white blood cell count at 18.5 which is comparable to previous visit on 413. H&H is stable compared to notes that were sent over from [facility] (). INR elevated at 1.21. Sodium 135 (comparable to previous). Calcium 7.4. Mag 1.6. 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 Patient was placed in a cervical collar. His pain is controlled in the ED w/ fentanyl upon arrival followed by morphine IV then percocet PO. Magnesium was replaced via IV. Paged Dr. Guadarrama who was in to see patient just after hospitalist. Spoke with hospitalist who will admit patient as he is not able to bear weight time and with new medical findings and metastatic disease, hospitalist team will discuss and coordinate further care for this patient. <Jayne Paredes - Last Filed: 02/04/18 06:19> - Diagnoses Provider Diagnoses: C2 cervical fracture, Closed right hip fracture, Primary malignant neoplasm of stomach with metastasis to other site Discharge - Sign-Out/Discharge Documenting (check all that apply): Discharge/Admit/Transfer - Billing Disposition and Condition Condition: FAIR Disposition: [facility] [place] <Ron Catalan - Last Filed: 01/25/18 08:39> - Billing Disposition and Condition Condition: GUARDED Disposition: [facility] [place] <Jayne Paredes - Last Filed: 02/04/18 06:19> - Discharge Plan Condition: Guarded Disposition: ADMITTED TO [facility]
[2018-01-19 09:03] LABS: INR 1.21 (0.77-1.02)
[2018-01-19] MEDS ORDERED: Morphine VIAL* 4 MG/ML VIAL (1 ml vial) IV ONE (09:24)
[2018-01-19] MEDS ORDERED: Ondansetron INJ* 2 MG/ML VIAL IV ONE (09:24)
[2018-01-19 09:33] LABS: EGFR Non-African American 154.9 (>60)
[2018-01-19] MEDS ORDERED: Iohexol 300* (CONTRAST) 10 ML SDV IV ONE (09:51)
[2018-01-19 09:53] LABS: ABS Basophils 0.1 10^3/ul (0-0.2); ABS Eosinophils 0 10^3/ul (0-0.6); ABS Lymphocytes 0.9 10^3/ul (1.0-4.8); ABS Monocytes 0.5 10^3/ul (0-0.8); ABS Neutrophils 17.1 10^3/ul (1.5-7.7); ABS Nucleated RBC 0.1 10^3/ul; Eosinophil % 0.1 % (0-6); Lymphocyte % 4.6 % (25-47); Nucleated Red Blood Cells % 0.5
[2018-01-19] MEDS ORDERED: Magnesium Sulfate 2 GM IV* 2 GM/50 ML BAG IVPB ONE (11:33)
--- NOTE | 2018-01-19 11:41 | RAD ---
HISTORY: MA cancer and weakness COMPARISONS: None TECHNIQUE: Multiple contiguous axial CT scans were obtained of the head with and without intravenous contrast. FINDINGS: HEMORRHAGE/INFARCT: There is no hemorrhage or acute infarct. MASSES/SHIFT: There is no mass or shift. EXTRA-AXIAL SPACES: There are no extra-axial fluid collections. SULCI AND VENTRICLES: There is diffuse and proportional enlargement of the sulci and ventricles. CEREBRUM: There is hypoattenuation of the periventricular and subcortical white matter. BRAINSTEM: There are no focal parenchymal abnormalities. CEREBELLUM: There are chronic appearing infarcts of the superior cerebellum VESSELS: The vessels are grossly normal. PARANASAL SINUSES: The paranasal sinuses are clear. ORBITS: The orbits are unremarkable. BONES AND SOFT TISSUE: No bone or soft tissue abnormalities are noted. OTHER: There is no abnormal enhancement. IMPRESSION: 1. NO ACUTE INTRACRANIAL PATHOLOGY. 2. DIFFUSE INVOLUTIONAL CHANGE WITH CHRONIC SMALL VESSEL ISCHEMIC CHANGES. 3. CHRONIC APPEARING INFARCTS OF THE SUPERIOR CEREBELLUM. 4. NO ABNORMAL ENHANCEMENT, VASOGENIC EDEMA, OR SPACE-OCCUPYING LESION TO SUGGEST METASTATIC DISEASE TO THE BRAIN.
--- NOTE | 2018-01-19 11:49 | RAD ---
INDICATION: Trauma, neck pain. COMPARISON: There are no prior studies available for comparison. TECHNIQUE: Contiguous axial sections were obtained from the skull base through the T1 vertebra. Images were reconstructed in the sagittal and coronal planes. FINDINGS: There is mild prevertebral soft tissue swelling adjacent to the upper cervical spine. The vertebra appear grossly osteopenic. In addition there are heterogeneous in density with more focal areas of decreased density in the C5 and C6 vertebral bodies possibly representing metastatic disease. The vertebra are normal alignment. There is a mild compression fracture of the superior endplate of the C5 vertebra which is likely old. There is an acute fracture involving the inferior aspect of the body of the C2 vertebral body adjacent to the disc. The fracture fragments are nondisplaced. At the C3-C4 level there is moderate posterior endplate spurring causing mild to moderate spinal canal narrowing and moderate to severe bilateral neural foraminal narrowing. At the C5-C6 level there is mild posterior uncinate process spurring causing mild spinal canal narrowing and moderate to severe bilateral neural foraminal narrowing. At the C6-C7 level there is moderate posterior uncinate process spurring causing mild to moderate spinal canal narrowing and moderate bilateral neural foraminal narrowing. At the C7-T1 level there is posterior uncinate process spurring causing mild spinal canal narrowing and mild bilateral neural foraminal narrowing. There is a 3.1 x 2.2 cm left thyroid lobe nodule. The results of this exam were discussed with the referring clinician. IMPRESSION: 1. NONDISPLACED ACUTE FRACTURE INVOLVING THE INFERIOR ASPECT OF THE C2 VERTEBRAL BODY. 2. MILD COMPRESSION FRACTURE OF THE SUPERIOR ENDPLATE OF THE C5 VERTEBRAL BODY LIKELY OLD. 3. OSTEOPENIA AND HETEROGENEOUS DECREASED DENSITY IN THE VERTEBRA WITH MORE FOCAL AREAS OF DECREASED DENSITY IN THE C5 AND C6 VERTEBRAL BODIES SUSPICIOUS FOR METASTATIC DISEASE. THIS CAN BE FURTHER EVALUATED WITH AN MRI OF THE CERVICAL SPINE. 4. LARGE LEFT THYROID LOBE NODULE. RECOMMEND ULTRASONOGRAPHY FOR FURTHER EVALUATION.
--- NOTE | 2018-01-19 11:51 | RAD ---
Indication: RIGHT hip pain post fall. Negative radiographs. Comparison: Radiographs of the same date. Technique: Noncontrast CT pelvis. Multiplanar reformation. Report: Normally located [id number] RIGHT hip. No CT evidence for fracture of the RIGHT femoral neck. Advanced osteoarthritis of the RIGHT hip consistent with Kellgren and Nomi grade 4 as documented on radiographs of the same date. Grossly nondisplaced pelvic fractures including at the junction of the RIGHT os pubis and superior pubic ramus, mid RIGHT inferior pubic ramus, and RIGHT sacral ala subtle cortical buckle insufficiency fracture. Associated periosseous hematoma including at the RIGHT obturator internus muscle measuring up to 2.1 cm transverse. Mild infiltrative hematoma at the RIGHT Retzius retropubic extraperitoneal space. Trace free pelvic fluid along the RIGHT pelvic sidewall. Negative for pelvic joint diastases. 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 No evidence for loosening or periprosthetic fracture with regard to the prosthetic LEFT hip. Severe diverticulosis of the sigmoid colon without evidence for acute inflammatory change. Diffuse subcutaneous tissue plane edema. Lenz images saved on the [facility]. IMPRESSION: 1. Grossly nondisplaced pelvic fractures including at the junction of the RIGHT os pubis and superior pubic ramus, mid RIGHT inferior pubic ramus, and RIGHT sacral ala subtle cortical buckle insufficiency fracture. 2. Associated periosseous hematoma including at the RIGHT obturator internus muscle measuring up to 2.1 cm transverse. Mild infiltrative hematoma at the RIGHT Retzius retropubic extraperitoneal space. Trace free pelvic fluid along the RIGHT pelvic sidewall. 3. No CT evidence for fracture of the RIGHT femoral neck.
[2018-01-19] MEDS ORDERED: oxyCODONE/Acetamin 5/325 MG* TAB PO ONE (12:32)
[2018-01-19] MEDS ORDERED: Al Hydrox/Mg Hydrox/Simet LIQ* 30 ML UDC PO PRN (15:06)
[2018-01-19] MEDS ORDERED: Albuterol 2.5 MG/3 ML NEB.SOL* (0.083%) INH PRN (15:06)
[2018-01-19] MEDS ORDERED: Methocarbamol TAB* 500 MG PO PRN (15:08)
[2018-01-19] MEDS ORDERED: Albuterol HFA INHALER* 8 gm MDI INH PRN (15:08)
[2018-01-19] MEDS ORDERED: Ondansetron TAB* 4 MG PO PRN (15:08)
[2018-01-19] MEDS ORDERED: Dexamethasone TAB* 4 MG PO PRN (15:08)
[2018-01-19] MEDS ORDERED: Loperamide CAP* 2 MG PO PRN (15:08)
[2018-01-19 17:08] LABS: Urine Appearance Clear; Urine Blood Negative (Negative); Urine Color Yellow; Urine Ketones Negative (Negative); Urine Protein Negative (Negative); Urine Urobilinogen Negative (Negative)
--- NOTE | 2018-01-19 17:14 | HP ---
HISTORY AND PHYSICAL: DATE OF ADMISSION: 01/19/18 TIME OF ADMISSION: 3 p.m. CHIEF COMPLAINT: Fall. HISTORY OF PRESENT ILLNESS: This is a 77-year-old man who is currently undergoing chemotherapy at [facility] for gastric adenocarcinoma, who comes in 1 day after discharge from [facility] with a fall at home. He was admitted to [facility] for the past week for pneumonia and a parapneumonic effusion. He went home yesterday and this morning woke up around 5:30. He came out to the kitchen and hooked up his tube feeds and walked into the living room. He set his glass of water down on the end table and suddenly his right leg "gave out." He fell onto the carpeted floor onto his right side and had immediate right hip pain. He maintained consciousness the entire time. He did not hit his head and he had no preceding shortness of breath, dizziness, palpitations, chest pain; he simply felt that his right leg, which was bearing the weight, gave out from under him. He had been still taking antibiotics for pneumonia and he had had some recent fevers; however, notes that he was discharged from the hospital. He also has been complaining of a productive cough, which has been improving on the antibiotics. He was discharged off oxygen. Overall, for the past 3 weeks, he has felt very unwell and blamed it all on his recent chemotherapy infusion. His last chemotherapy was given to him from the to the , which is a 5- day infusion of cisplatin and since that time he felt generally unwell with nausea, generalized weakness and malaise. PAST MEDICAL HISTORY: 1. Aortic stenosis, status post aortic valve replacement with a porcine valve. 2. Cardiac pacemaker, he is unsure why he has this. 3. Atrial fibrillation. 4. Osteoarthritis. 5. Hyperlipidemia. 6. Peripheral vascular disease. 7. He believes he has stents in his legs. 8. Peptic ulcer disease. 9. History of tobacco abuse. 10. BPH. 11. COPD. 12. DVT. Regarding his oncologic history, he was first diagnosed with gastric adenocarcinoma in February of 2017. He underwent a gastrectomy and a partial pancreatectomy and partial splenectomy in August of 2017. He has a G-tube for tube feeds. At the time of the surgery, he also had 31 lymph nodes removed and 19 of them were reported as positive for cancer. This surgery is obtained by his . HOME MEDICATIONS: 1. Moxifloxacin 400 mg daily. 2. Albuterol 2 puffs inhaled b.i.d. p.r.n. 3. Symbicort 2 puffs inhaled b.i.d. 4. Decadron 8 mg b.i.d. 5. Lovenox 80 mg subcutaneous daily. Of note, the patient is not taking this. 6. Zetia 10 mg daily. 7. Ferrous sulfate 325 mg b.i.d. 8. [place] 1 tab q.6 p.r.n. 9. Loperamide p.r.n. constipation. 10. Methocarbamol 500 mg 4 times a day as needed. 11. Zofran 4 mg q.6 p.r.n. 12. Percocet 1 tab q.6 p.r.n. pain. 13. KCl 20 mEq daily. 14. Pravastatin 40 mg q.h.s. 15. Spiriva 1 inhaled daily. 16. Vitamin D3 daily. SOCIAL HISTORY: He lives in [place] with his , Kalie. He is a former smoker and denies alcohol abuse. PHYSICAL EXAMINATION GENERAL: Thin, ill-appearing man who is in no distress. VITAL SIGNS: Temperature 98.9, heart rate 80, respiratory rate 25, pulse ox 93 % on 2 L, blood pressure 111/71. HEENT: Pupils are equal, round, and reactive to light. No nystagmus. Tongue is midline. Face is symmetric. Mucosa is dry. No pharyngeal exudates or erythema. NECK: A C-spine collar is in place. LUNGS: He has decreased breath sounds in the left base to the mid lung tinjaero with no rhonchi. CHEST: A healed sternotomy incision is present. A pacemaker is on the left chest wall. He is in an irregular rhythm. His PMI is nondisplaced. ABDOMEN: He has a G-tube in the left abdomen. There is some drainage surrounding the G-tube. The midline incision is well healed. His abdomen is soft, nontender, and nondistended. EXTREMITIES: He has bilateral pitting edema, left greater than right. His DP pulses are 2+ bilaterally. He has good active and passive range of motion in both hips; however, he resists the right hip flexion both actively and passively. He has good internal and external rotation and the sensation is intact distally. DIAGNOSTIC STUDIES: Chest x-ray, large layering left pleural effusion, patchy airspace disease in the right lower lobe and focal pleural thickening on the right. CT pelvis, grossly nondisplaced pelvic fracture including at the junction of the right pubis and superior pubic ramus, mid right inferior pubic ramus and right sacral ala with subtle cortical buckle insufficiency fracture and associated periosseous hematoma including at the right obturator internus muscle measuring up to 2.1 cm transverse, mild infiltrative hematoma at the right Retzius retropubic extraperitoneal space, trace free pelvic fluid along the right pelvic sidewall. CT neck, nondisplaced acute fracture involving the inferior aspect of the C2 vertebral body, mild compression fracture of the superior endplate of the C5 vertebral body, likely old, osteopenia and heterogeneous decreased density in the vertebra with more focal areas of decreased density in the C5 and C6 vertebral bodies suspicious for metastatic disease, enlarged left thyroid lobe nodule. Bone scan obtained from old records at [facility] from 12/18/17 shows: 1. Multifocal osseous metastatic disease with specific involvement of the lower cervical spine, thoracolumbar spine, sternum, bilateral ribs, left scapula , and right hemipelvis. 2. Uptake of radiotracer about the left acetabulum and inferior aspect of the left greater trochanter, presumably related to postsurgical/reactive changes. ASSESSMENT AND PLAN: This is a 77-year-old man with history of gastric adenocarcinoma, currently undergoing cisplatin chemotherapy, who was discharged from an outside hospital yesterday with pneumonia, who presents to the emergency department today with a fall and right hip pain and is found to have C2 fracture as well as pubic rami fractures. 1. C2 fracture. This is concerning for pathologic fracture given the osseous metastatic disease seen on a recent bone scan. He is in a C collar right now and Neurosurgery has been consulted. I appreciate their recommendations. 2. Pubic rami fractures. Again, this is concerning for pathologic fractures given his metastatic osseous lesions. I believe these are nonoperative fractures; however, I will discuss this with Orthopedic Surgery for weightbearing recommendations. 3. Metastatic gastric adenocarcinoma. It appears that this has progressed despite he is being on cisplatin chemotherapy. I did discuss these findings with him and his family. This was new information to them. I suggested that we may consider taking a more conservative and palliative approach with him and his family; however, we will continue to discuss this over the next few days. I am consulting Oncology for consideration of palliative radiation if this will be indicated in this case. 4. Community-acquired pneumonia. He was taking moxifloxacin at home and I will continue levofloxacin here. He has evidence of ongoing pneumonia radiographically and clinically as well as a leukocytosis here. 5. Thrombocytopenia. This appears to be improving from his hospitalization and is likely related to his recent cisplatin. No evidence of bleeding. 6. Anemia. Again, this is likely related to his recent chemotherapy. He did receive 2 units of packed red blood cells on his admission last week. It was for this reason that he and his family declined resuming the therapeutic Lovenox. Of note, this was documented in his progress note from that hospitalization; however, Lovenox was included on his discharge summary. I did confirm with his family that he is not taking Lovenox. 7. Deep venous thrombosis, malignancy associated. As above, he was prescribed therapeutic Lovenox, but his family and him decided not to restart it after he required blood transfusions on his last admission. 8. Elevated troponin. I will continue to trend his troponins. His EKG shows no ischemic changes and he has had no chest pain. Given his globally poor prognosis, I do not believe that pursuing an ischemic evaluation at this point is going to be meaningful. 9. Large left pleural effusion. This may be parapneumonic or malignant. He did not have a thoracentesis at the outside hospital. Now that we have evidence of metastatic disease in the bone, I am not sure that confirming metastasis to the pleural fluid would be useful; however, I will consult Oncology as above to answer this question. Either way, he may benefit from palliative thoracentesis given his hypoxia; however, he continues to deny shortness of breath even when he desaturates off oxygen. 10. Chronic obstructive pulmonary disease. Continue home Spiriva and albuterol. 11. Diet: Tube feeds and full liquids by mouth. 12. DVT prophylaxis: Contraindicated secondary to questionable recent bleed; however, it should be noted that no bleed was found on last admission, still I will treat him with SCDs. 13. Full Code. I discussed code status with Mr. Guaman and his family, and he is not ready to make this decision, but says he is not ready to . He thinks he would want compressions and intubation. He and his family will continue to discuss. [id number]/[facility] #: [id number] ANA MARÍA
[2018-01-19] MEDS: Levofloxacin TAB* 250 MG PO SCH (17:40)
--- NOTE | 2018-01-19 19:59 | RAD ---
Indication: Fall, evaluate for lytic lesion. 2. Views demonstrates osteopenia. No definite fracture is identified. IMPRESSION: Osteopenia without definite fracture
--- NOTE | 2018-01-19 20:00 | RAD ---
Indication: Thoracic spine fracture. 2 views of the thoracic spine demonstrates vertebral bodies to be normal in height. No compression. IMPRESSION: Limited views of the thoracic spine demonstrates no obvious compression.
[2018-01-19] MEDS: oxyCODONE/Acetamin 5/325 MG* TAB PO PRN (20:28)
[2018-01-19] MEDS: Ferrous Sulfate TAB* 325 MG PO SCH (20:28)
[2018-01-19] MEDS: Docusate CAP* 100 MG PO SCH (21:13)
[2018-01-19] MEDS: Mometasone/Formoter 200/5 MDI INH SCH (22:43)
[2018-01-20 05:42] LABS: Hematocrit 24 % (42-52); Mean Corpuscular HGB Conc 33 g/dl (31-36); Mean Corpuscular Hemoglobin 32 pg (27-31); Mean Corpuscular Volume 96 fL (80-94); Mean Platelet Volume 8.3 um3 (7.4-10.4); Platelet Count 85 10^3/ul (150-450); Red Blood Count 2.53 10^6/ul (4.0-5.4); Red Cell Distribution Width 23 % (10.5-15); White Blood Count 13.9 10^3/ul (3.5-10.8)
[2018-01-20 05:44] LABS: INR 1.29 (0.77-1.02)
[2018-01-20 05:54] LABS: EGFR Non-African American 139.4 (>60)
[2018-01-20 06:08] LABS: Monocytes % 3 % (0-7)
[2018-01-20] MEDS: Ezetimibe TAB* 10 MG PO SCH (08:23)
[2018-01-20] MEDS: Ferrous Sulfate TAB* 325 MG PO SCH ×2 (08:23→20:33)
[2018-01-20] MEDS: Docusate CAP* 100 MG PO SCH ×2 (08:25→20:32)
[2018-01-20] MEDS: Cholecalciferol TAB* 1000 UNITS PO SCH (08:25)
[2018-01-20] MEDS: Potassium Chlor TAB* 20 MEQ TAB.ER PO SCH (08:25)
[2018-01-20] MEDS: oxyCODONE/Acetamin 5/325 MG* TAB PO PRN ×3 (08:25→20:33)
[2018-01-20] MEDS: Atorvastatin* 10 MG TAB PO SCH (08:25)
--- NOTE | 2018-01-20 08:41 | PN ---
Subjective Date of Service: 01/20/18 Interval History: Feels okay today, has some pain in his bottom. Also has a cough productive of thick white sputum. Was unable to urinate last night so a patel catheter was placed. Afebrile since admission. Social History: Unchanged from Admission Past Medical History: Unchanged from Admission Objective Active Medications: Al Hydrox/Mg Hydrox/Simethicone (Maalox Plus*) 30 ml PO Q6H PRN PRN Reason: INDIGESTION Albuterol (Ventolin 2.5 Mg/3 Ml Neb.Brea*) 2.5 mg INH [id number] AWAKE PRN PRN Reason: sob/wheezing Albuterol (Ventolin Hfa Inhaler*) 2 puff INH Q4H PRN PRN Reason: SOB/WHEEZING Atorvastatin Calcium (Lipitor*) 10 mg PO DAILY [facility] PRN Reason: Protocol Cholecalciferol (Vitamin D Tab*) 1,000 units PO DAILY [facility] Device (Tiotropium Inhaler Device*) 1 each INH 0900 ONE Stop: 01/20/18 09:01 Dexamethasone (Decadron Tab*) 8 mg PO BID PRN PRN Reason: Post-chemotherapy Docusate Sodium (Colace Cap*) 100 mg PO BID [facility] Last Admin: 01/19/18 21:13 Dose: Not Given Ezetimibe (Zetia Tab*) 10 mg PO DAILY [facility] Ferrous Sulfate (Ferrous Sulfate Tab*) 325 mg PO BID [facility] Last Admin: 01/19/18 20:28 Dose: 325 mg Levofloxacin (Levaquin Tab*) 250 mg PO Q24H [facility] Last Admin: 01/19/18 17:40 Dose: 250 mg Loperamide HCl (Imodium Cap*) 2 mg PO Q4H PRN PRN Reason: DIARRHEA Methocarbamol (Robaxin Tab*) 500 mg PO QID PRN PRN Reason: PAIN Mometasone Furoate/Formoterol Fumar (Dulera 200/5 Mdi*) 2 puff INH BID [facility] PRN Reason: Protocol Last Admin: 01/19/18 22:43 Dose: 2 puff Ondansetron HCl (Zofran Tab*) 4 mg PO Q8H PRN PRN Reason: NAUSEA Oxycodone/Acetaminophen (Percocet 5/325 Tab*) 1 tab PO Q4H PRN PRN Reason: Pain Last Admin: 01/19/18 20:28 Dose: 1 tab Potassium Chloride (Klor Con Er Tab*) 20 meq PO DAILY [facility] Tiotropium Champion (Spiriva Cap.Inh*) 1 cap INH DAILY [facility] Vital Signs - 8 hr 01/20/18 03:37 Temperature 97.9 F Pulse Rate 68 Respiratory 16 Rate Blood Pressure 101/57 (mmHg) O2 Sat by Pulse 98 Oximetry Oxygen Devices in Use Now: None Appearance: alert, no distress, pale Eyes: No Scleral Icterus, PERRLA Ears/Nose/Mouth/Throat: NL Teeth, Lips, Gums Neck: - - on[place] j collar in place Respiratory: - - decreased breath sounds left base anteriorly, no wheezes Cardiovascular: - - left chest wall port Abdominal: NL Sounds; No Tenderness; No Distention, - - J-tube with some drainage surrounding site, incisions well healed Extremities: - - RLE>LLE Skin: No Rash or Ulcers Neurological: - - RLE strength 5+, LLE 3+. Video Technician strength 5/5 Result Diagrams: 01/20/18 05:17 01/20/18 05:17 Assess/Plan/Problems-Billing Assessment: 77 yo man with history of PVD, aortic valve replacement, afib, pacemaker and 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 - Patient Problems (1) Closed C2 fracture Current Visit: Yes Status: Acute Code(s): S12.100A - UNSP DISP FX OF SECOND CERVICAL VERTEBRA, INIT FOR CLOS FX SNOMED Code(s): 804157476 Comment: [place] j collar neurosurgery recommending nonoperative management, plan for long-term collar pain management with percocet strength 5/5 in all extremities (2) Metastatic adenocarcinoma Current Visit: Yes Status: Acute Code(s): C79.9 - SECONDARY MALIGNANT NEOPLASM OF UNSPECIFIED SITE SNOMED Code(s): 795008923 Comment: Gastric s/p gastrectomy, partial splenectomy, partial pancreatectomy in 08/2017, currently undergoing cisplatin, now with bony mets that are new (spine, pelvis, sternum, ribs) Consult Dr. 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 until hospitalization last week Lovenox was on his discharge summary but he and his say they were told not to take it due to recent transfusion requirements (no bleed was found and anemia was thought to be chemotherapy induced) (5) S/P gastrectomy Current Visit: Yes Status: Acute Code(s): Z90.3 - ACQUIRED ABSENCE OF STOMACH [PART OF] SNOMED Code(s): 969501858 Comment: Tube feeds overnight, full liquids as tolerated (6) Pneumonia Current Visit: Yes Status: Acute Code(s): J18.9 - PNEUMONIA, UNSPECIFIED ORGANISM SNOMED Code(s): 620561975 (7) Pleural effusion Current Visit: Yes Status: Acute Code(s): J90 - PLEURAL EFFUSION, NOT ELSEWHERE CLASSIFIED SNOMED Code(s): 14974258 Comment: parapneumonic vs. malignant most likely asymptomatic, but new O2 requirement consult Dr. Payton for thoracentesis (8) Acute respiratory failure with hypoxia Current Visit: Yes Status: Acute Code(s): J96.01 - ACUTE RESPIRATORY FAILURE WITH HYPOXIA SNOMED Code(s): 51168132 Comment: likely from pneumonia/effusion thoracentesis may help; wean as able today (9) Full code status Current Visit: Yes Status: Acute Code(s): Z78.9 - OTHER SPECIFIED HEALTH STATUS SNOMED Code(s): 899787366 Comment: Mr. Guaman wishes to be full code and continue chemo/radiation as recommended by oncology
[2018-01-20] MEDS ORDERED: Spiriva Inhaler DEVICE* 1 EACH DEVICE INH ONE (09:00)
--- NOTE | 2018-01-20 10:36 | CONS ---
AMENDED REPORT NOW INCLUDES DATE OF CONSULT - ESIGNED BEFORE ADJUSTMENT CONSULTATION NOTE: DATE OF CONSULT: 01/20/18 HISTORY OF PRESENT ILLNESS: The patient is a very pleasant 77-year-old gentleman with a diagnosis of gastric abdominal carcinoma, status post chemotherapy and gastrectomy, partial pancreatectomy and partial splenectomy with a G-tube with multiple medical comorbidities including cardiac pacemaker, atrial fibrillation, aortic stenosis, status post aortic valve replacement, and a history of DVT, who was reported to have sustained a fall. The patient was recently discharged from [facility] where he was hospitalized for pneumonia and pleural effusion. I was requested to see the patient by the emergency room team regarding his complaint consistent with a C2 type three fracture. The patient also had a recent bone scan that revealed multiple bone metastases including lower cervical spine, thoracolumbar spine, sternum, ribs, left scapula, and right hemipelvis. The patient was also diagnosed with pubic rami fracture. The patient reports that he had no loss of consciousness, that he remembers everything. He reports that he does have some neck pain, but he denies any back pain. He denies any weakness, numbness or tingling of the lower extremities. He denies any urinary or GI incontinence. History was obtained from the patient's chart, the patient, and his . PAST MEDICAL HISTORY: 1. Aortic stenosis, status post aortic valve replacement. 2. Atrial fibrillation, status post pacemaker. 3. Osteoarthritis. 4. Hyperlipidemia. 5. Peripheral vascular disease with possible stents in his lower extremities. 6. Peptic ulcer disease. 7. Gastric adenocarcinoma. 8. History of tobacco use. 9. Benign prostatic hypertrophy. 10. COPD. 11. DVT. MEDICATIONS: 1. Moxifloxacin. 2. Albuterol. 3. Symbicort. 4. Decadron. 5. Lovenox. 6. Zetia. 7. Ferrous sulfate. 8. [place]. 9. Loperamide. 10. Methocarbamol. 11. Zofran. 12. Percocet. 13. KCl. 14. Pravastatin. 15. Spiriva. 16. Vitamin D3. SOCIAL HISTORY: Tobacco: He is a former smoker. Alcohol: Negative. Recreational drug use: Negative. The patient is retired. 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 He is , lives with his in [place]. PHYSICAL EXAM: On physical examination, the patient is not in acute distress. He is awake, alert, and oriented x3. He has no tenderness to palpation of the cervical, thoracic or lumbar spine. He does have a cervical collar on. His pupils are equal and reactive. Cranial nerves II through XII are grossly intact. He does have bilateral hearing aids. Motor 5/5 in the lower extremities. No pronator drift. Sensory grossly intact to light touch. Deep tendon reflexes +1 bilaterally. No clonus. No Babinski. Joyce's negative. The patient does have some decreased range of motion of the right hip, possibly about it, as he has been diagnosed with pubic rami fractures. 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 The patient had a CT scan of the cervical spine that reveals a C2 type III fracture without displacement of the bone fragments. He also has diffuse osteopenia and possible evidence of metastatic disease, especially at C5 and C6 where there is a question of superior endplate deformity. The patient had also x-rays of his thoracic and lumbar spine that are reported to be negative. Unfortunately, the quality of film is suboptimal. ASSESSMENT: The patient is a very pleasant 77-year-old gentleman status post fall with a C2 type III fracture, who is status post gastrectomy for the gastric abdominal carcinoma with multiple bony metastases in his cervical and thoracolumbar spine. PLAN/RECOMMENDATIONS: The patient at this point has multiple medical comorbidities. Unfortunately, because of his pacemaker, it will be difficult to obtain an MRI of his spine. Based on the report of the bone scan, there is strong suspicion for diffuse metastatic disease and I would defer treatment to the oncology team. We recommend obtaining a thoracic and lumbar spine CT scan to exclude any acute fractures, although clinically the suspicion is very low. In terms of his C2 fracture, as discussed with the patient, conservative treatment may be the best option for him with the cervical collar. We have advised that the patient be on Mill[place] J collar and followed by serial x-rays with possible duration of the collar of 12 weeks or more. Full instructions were given to the patient and his . We have advised the patient to exercise full fall precautions, avoid any further injuries. Thank you for allowing us to participate in the care of this patient. Please do not hesitate to contact our office in case you have any further questions or concerns regarding the care of this patient. Jody Lee MD [id number]/[facility] #: [id number] ORIGINAL ESIGN DATE/TIME: 01/20/182249 [facility]
[2018-01-20] MEDS: Tiotropium CAP.INH* CAP.INH/18 MCG (USE ORDER SET !) INH SCH (10:59)
[2018-01-20] MEDS: Mometasone/Formoter 200/5 MDI INH SCH ×2 (10:59→20:50)
[2018-01-20] MEDS: Levofloxacin TAB* 250 MG PO SCH (17:03)
--- NOTE | 2018-01-20 17:23 | CONS ---
PULMONARY CONSULTATION REPORT: DATE OF CONSULT: 01/20/18 REASON FOR CONSULT: Evaluation of pleural effusion. HISTORY OF PRESENT ILLNESS: The patient is a 77-year-old male, former smoker, with history of COPD; gastric adenocarcinoma, undergoing chemotherapy at [facility] , who presents for evaluation of fall at home, he was recently discharged from [facility] when he was treated for pneumonia and parapneumonic effusion. He was discharged on antibiotics for pneumonia. The patient complains of productive cough in spite of being on antibiotics, bringing out clear to yellow phlegm. The patient denies shortness of breath. He needed oxygen supplementation while in the hospital and has been discharged without oxygen. The patient reports gradually worsening weakness, which he attributes to chemotherapy. He recently has received chemotherapy from 01/01/18 to 01/06/18, 5-day infusion of cisplatin , felt generally unwell with nausea, generalized weakness, and malaise. The patient has been having trouble swallowing. The patient was also noted to have C2 type III fracture and was evaluated by Neurosurgery. MRI could not be obtained because of pacemaker. He has a cervical collar in place. The patient denies any other complaints at this time other than cough productive of thick white phlegm. He has been afebrile. Reports mild pain in his bottom. PAST MEDICAL HISTORY: 1. Aortic stenosis, status post aortic valve replacement. 2. Cardiac pacemaker. 3. Atrial fibrillation. 4. Osteoarthritis. 5. Hyperlipidemia. 6. Peripheral vascular disease, status post stents. 7. Peptic ulcer disease. 8. History of tobacco abuse and COPD. 9. BPH. 10. DVT. 11. Gastric adenocarcinoma diagnosed in February of 2017, had gastrectomy and partial pancreatectomy and partial splenectomy in August of 2017. He has G- tube for tube feeds. He also was noted to have a lymph node positive disease. MEDICATIONS AT HOME: 1. Moxifloxacin. 2. Albuterol. 3. Symbicort. 4. Decadron. 5. Lovenox. 6. Zetia. 7. Ferrous sulfate. 8. Martin. 9. Loperamide. 10. Methocarbamol. 11. Zofran. 12. Percocet. 13. KCl. 14. Pravastatin. 15. Spiriva. 16. Vitamin D3. SOCIAL HISTORY: Lives at home with his . Former smoker. Denies alcohol abuse. PHYSICAL EXAM: The patient is in bed, in no apparent distress, C-collar in place. Vital Signs: Temperature 98; pulse 70 beats per minute; respiratory rate 16 per minute; O2 sat 95% on 2 L, currently off oxygen; blood pressure 90/ 55. HEENT: Pupils equal, reactive to light. Mucous membranes moist. No scleral icterus. Neck: Supple, J-collar in place. Respiratory: Decreased breath sounds at left bases. No wheeze. Cardiovascular: Left chest wall port present. S1, S2 present, irregular. Abdomen: Soft, nontender, nondistended. G-tube in place. Extremities: Trace edema, right lower extremity greater than left lower extremity. Skin: No rash or ulcers. Neurological: Decreased strength in left lower extremity. No focal deficits. DIAGNOSTIC STUDIES/LAB DATA: WBC count 13.9 decreased from admission at 18.5, hemoglobin 8.0, hematocrit 24, platelet count 85. Sodium 134, potassium 4.1, chloride 101, bicarb 29, BUN 19, creatinine 0.57. Troponin is elevated. CRP 58. UA was negative. Sputum culture is negative to date. Chest x-ray performed on admission was personally reviewed by me - large left pleural effusion with layering, basal atelectasis of left lower lobe and right lower lobe. IMPRESSION AND RECOMMENDATIONS: 77-year-old male, former smoker with a history of chronic obstructive pulmonary disease, recently diagnosed gastric cancer, admitted after a fall, has cervical fracture with collar in place, being evaluated by Neurosurgery, found to have large left pleural effusion. The patient recently was treated at [facility] for pneumonia and parapneumonic effusion. The patient also has gastric cancer recently, which could have been resulting in malignant pleural effusion.Discussed concern for infected pleural fluid. The patient would benefit from a diagnostic thoracentesis. The patient reports no symptoms at this time and does not want to undergo thoracentesis. Discussed consequences of parapneumonic effusion. The patient is not agreeable with procedure at this time. The patient agreed to let me know if he decides on doing the procedure in the future. Thank you for allowing me to participate in the care of your patient. Will follow up with you. [id number]/[facility] #: [id number] ANA MARÍA
--- NOTE | 2018-01-20 19:25 | RAD ---
Indication: Fall, neck pain. CT of the lumbar spine was obtained in the axial plane. Sagittal and coronal reconstructed images were obtained. There is diffuse osteopenia noted. At L5-S1 there is no compression fracture. Minimal broad-based protrusion and facet arthropathy is noted. At L4-L5 broad-based protrusion flattens the thecal sac. Facet arthropathy is noted. Osteopenia is noted. Small foci of sclerosis is noted in the L4 vertebra. At L3-L4 no focal protrusion is noted. No central or foraminal stenosis is noted. There is superior endplate compression of L3 which is likely old although clinical correlation is suggested. At L2-L3 osteopenia is noted. No obvious fracture is noted. No central or foraminal stenosis is noted. At L1 there is mild compression of L1 age of which is undetermined. No significant retropulsed fragment is noted. Diffuse osteopenia is noted. IMPRESSION: Mild compression superior endplate of L1 and L3. Age of this is undetermined. Diffuse osteopenia is noted.
--- NOTE | 2018-01-20 19:30 | RAD ---
Indication: Fall, compression fracture. CT of the thoracic spine was obtained in the axial plane. Sagittal and coronal reconstructed images were obtained. There is diffuse osteopenia noted. There is some sclerosis at the T10 T7 T5 and T4 vertebra etiology of which is unclear. No compression fractures noted. No retropulsed fragment is noted. The possibility of multiple myeloma should BE considered. Bilateral pleural effusions are noted. This is greater on the left than on the right. IMPRESSION: Diffuse osteopenia with areas of sclerosis. No compression fracture or retropulsed fragment is noted. The etiology of the sclerotic areas is unclear. Possibility of multiple myeloma should BE considered.
--- NOTE | 2018-01-20 20:56 | CONS ---
CONSULTATION REPORT: DATE OF CONSULT: 01/20/18 REFERRING PHYSICIAN: Hospitalist team. PRIMARY CARE PHYSICIAN: Dr. Beck. ONCOLOGY AT [facility]: Dr. Angela. REASON FOR CONSULT: Likely metastatic gastric cancer. HISTORY OF PRESENT ILLNESS: Mr. Stark is a 77-year-old male who was diagnosed with gastric cancer in March 2017. He had been followed by Dr. Diaz in Cardiology, who noticed he was looking pale. He had a CBC done on with a hemoglobin of 6.9. He was referred to Dr. 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 He had an EGD that showed an ulcer with biopsy positive for gastric adenocarcinoma. I do not have details of his early staging. He was noted to have local disease and treated with neoadjuvant chemotherapy with cisplatin and 5-FU. He subsequently had surgery that included a total gastrectomy, partial pancreatectomy, cholecystectomy, and removal of parts of the small bowel. Per chart reports, he had 31 lymph nodes removed in a D1 dissection, 19 of which were positive for cancer, I do not have the surgical T staging. Things were difficult after his surgery. He had multiple complications and reports being in and out of the hospital several times. He had a prolonged stay at a rehabilitation facility, but ultimately was able to get home. Because of that, adjuvant therapy was deferred from his surgery in August until early November. Plan had been for 3 additional cycles of cisplatin and 5-FU. He received 2 cycles. During the cycle 2, he was admitted back to [facility] with neutropenic fever and pneumonia. He was discharged home, but then after 1 day at home, was walking across the living room and his leg gave out. He fell and came to [facility] Emergency Room. On presentation, he had a C-spine CT and a pelvic CT, which was done for acute right hip pain. He was found to have a C2 fracture as well as a nondisplaced fracture of his right pubis. He has been admitted and seen by Neurosurgery, who recommend a minimum 12 weeks of a C-spine collar and Orthopedics recommends conservative management for the pelvic fracture. He has longstanding osteopenia on his imaging and after his last hospitalization , Dr. Angela was suspicious for metastatic disease and he was sent for a bone scan. The bone scan was done on 01/17/18 and it was consistent with multifocal osseous metastatic disease with involvement of the C-spine, T-spine, sternum, ribs, scapula, and the right hemipelvis. Both areas of fracture were positive per bone scan report. He reports that other than the fracture he actually feels pretty well. He is not in pain. His energy is good. He does not consider himself ill. Oncology is consulted during his recovery to help facilitate his cancer care. PAST MEDICAL HISTORY: 1. Aortic stenosis, status post aortic valve replacement with a porcine valve. 2. Cardiac pacemaker. 3. Atrial fibrillation. 4. Osteoarthritis. 5. High cholesterol. 6. Peripheral vascular disease. 7. Peptic ulcer disease. 8. BPH. 9. COPD. 10. History of DVT. PAST SURGICAL HISTORY: 1. Left hip replacement. 2. Gastrectomy and D1 dissection for his gastric cancer. 3. PEG tube placement. 4. Pacemaker placement. MEDICATIONS: Today are: 1. Maalox 30 q.6 p.r.n. 2. Ventolin. 3. Albuterol inhalers. 4. Lipitor 10 mg a day. 5. Vitamin D 1000 daily. 6. Dexamethasone 8 mg b.i.d. 7. Docusate. 8. Zetia 10 mg daily. 9. Ferrous sulfate 325 b.i.d. 10. Levofloxacin 250 q.24. 11. Imodium 2 mg p.r.n. diarrhea. 12. Robaxin tablet 500 mg four times daily. 13. Dulera 200/5 two puffs b.i.d. 14. Zofran 4 mg q.8 p.r.n. ALLERGIES: AMIODARONE. FAMILY HISTORY: No early malignancy. SOCIAL HISTORY: Lives in [place] with his , Kalei. Former smoker, but has quit and does not use alcohol. He has 2 children and 2 grandchildren, both of whom live in the local area. 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 REVIEW OF SYSTEMS: Generally, he feels well. No fevers, chills, or night sweats. Does not feel ill. HEENT: No active dental disease. He is in a neck collar. He has longstanding difficulty with taste after his surgery and has nutrition through PEG tube mostly. No vision or hearing changes. Lungs: History of COPD. No shortness of breath. He is recovered from his pneumonia. Aware he has an effusion. Cardiac: Pacemaker, atrial fibrillation. No chest pain. GI: Poor taste, uses the PEG tube. Bowels are moving. : Negative. Musculoskeletal: As above. Skin: He does not know of any skin breakdown or ulcers and no rashes. Neurologic: He is good neurologically after his fracture. No compromise at this time. PHYSICAL EXAM: Temperature 98.0, pulse 70, respirations 16, blood pressure 90/ 55. HEENT: Mucosa moist. No lesions. No supraclavicular lymphadenopathy and hard to feel around his collar. He is wearing a C-spine collar. Lungs: Decreased breath sounds bilaterally. No crackles. No wheezes. Heart: He has a 3/6 systolic ejection murmur. Appears to be regular. S1, S2. Abdomen: PEG tube is in place. No erythema around the site. Nontender, nondistended. No hepatosplenomegaly. Extremities: Feet are cool to the touch. Some muscle atrophy. Neurologic: Alert and oriented x3. Exam otherwise deferred. DIAGNOSTIC STUDIES/LAB DATA: [place] [facility] [place] a [place] CT and C-spine CT that showed a fracture. He had diffuse osteopenia that is heterogeneous on his scans. There is no discernible mass. We have a chest x-ray that shows a small to moderate left-sided effusion. He had T-spine and L-spine CTs that have not yet been read, on my exam do not show any new significant findings. Labs: Persistent anemia with hemoglobin of 8.0, MCV 96, platelets 85,000, WBC 13.9, 90% neutrophils. Creatinine 0.57, calcium 7.2. Low magnesium. Mildly elevated troponin during this hospitalization and mildly elevated INR of 1.29. Albumin is 2.6. ASSESSMENT/PLAN: A 77-year-old male with history of gastric cancer, status post neoadjuvant chemotherapy followed by surgery followed by an attempted postsurgical chemotherapy. Presents after a fall and 2 pathologic fractures, C2 and right pelvis. Review of his imaging here and report of the bone scan consistent with multifocal metastatic cancer and pathologic fractures. Deferential includes metastatic gastric cancer as by far most likely, second primary is possible, prostate, hematologic malignancy Assuming gastric cancer he will need a review of imaging to determine if he has disease primary refractory of Cisplatin and 5FU. Time line of bone changes and progression is unclear at this time. He also has anemia and thrombocytopenia, he is on a relatively high dose of steroids, and today he is immobilized in bed. 1. Gastric cancer. Highly suspicious metastatic cancer, but we do not have a biopsy diagnosis for stage IV disease. Will discuss with Dr. Gee on Tuesday. 2. Prognosis. We discussed this is not a curable cancer and decisions for treatment are based on quality of life goals. If his cancer has progressed on cisplatin and 5-FU he has a very agresive disease. We discussed goals of therapy and QOL. At this time he says he feels well, not sick and wants to pursue therapy. Before any treatment is done, it will be helpful for him to meet with Dr. Mcgarry in Palliative Care to further discussion about treatment goals and quality of life and hospice. Treatment could include other chemotherapies that will be helpful for him, but we would also want to look into immunotherapy and targeted therapy through [facility] testing. 3. Anemia and thrombocytopenia may be residual from his prior chemotherapy, could be marrow infiltration of tumor, continued iron deficiency and/or B12 deficiency. We will check iron and B12. Transfuse as needed. 4. I am not sure why he needs to be on sterids and would like to taper when possible. Follow up on Tuesday, but we are available over the weekend if any additional issues arise. [id number]/[facility] #: [id number] ANA MARÍA
--- NOTE | 2018-01-20 23:01 | PN ---
Progress Note - Progress Note Date of Service: 01/20/18 SOAP: Subjective: []Patient was seen earlier today. No events ON. On MJ collar. Objective: []VSS AAOx3 RICHARD, CN II-XII grossly intact, except hesham hearing Motor 5/5 all extremities Sensory grossly intact to light touch Assessment: []77 yom fall C2 type III fracture, gastric Ca with bony mets Plan: []Monitor VS, Neurochecks Maintain MJ collar CT T/L spine no acute fractures, Possible diffuse metastatic disease. Conservative treatment for C2 fracture. Jody Lee MD
[2018-01-21] MEDS: oxyCODONE/Acetamin 5/325 MG* TAB PO PRN ×3 (04:40→13:17)
[2018-01-21 05:19] LABS: EGFR Non-African American 139.4 (>60)
[2018-01-21 06:45] LABS: Monocytes % 5 % (0-7)
[2018-01-21 07:28] LABS: ABS Neutrophils 15.2 10^3/ul (1.5-7.7); Hematocrit 26 % (42-52); Hemoglobin 8.4 g/dl (14.0-18.0); Mean Corpuscular HGB Conc 33 g/dl (31-36); Mean Corpuscular Hemoglobin 32 pg (27-31); Mean Corpuscular Volume 97 fL (80-94); Mean Platelet Volume 8.1 um3 (7.4-10.4); Platelet Count 110 10^3/ul (150-450); Red Blood Count 2.65 10^6/ul (4.0-5.4); Red Cell Distribution Width 23 % (10.5-15); White Blood Count 16.8 10^3/ul (3.5-10.8)
[2018-01-21] MEDS: Potassium Chlor TAB* 20 MEQ TAB.ER PO SCH (08:29)
[2018-01-21] MEDS: Docusate CAP* 100 MG PO SCH ×2 (08:29→21:18)
[2018-01-21] MEDS: Tiotropium CAP.INH* CAP.INH/18 MCG (USE ORDER SET !) INH SCH (08:29)
[2018-01-21] MEDS: Cholecalciferol TAB* 1000 UNITS PO SCH (08:29)
[2018-01-21] MEDS: Ferrous Sulfate TAB* 325 MG PO SCH ×2 (08:29→21:18)
[2018-01-21] MEDS: Ezetimibe TAB* 10 MG PO SCH (08:29)
[2018-01-21] MEDS: Mometasone/Formoter 200/5 MDI INH SCH ×2 (08:30→20:40)
[2018-01-21] MEDS: Atorvastatin* 10 MG TAB PO SCH (08:30)
[2018-01-21] MEDS ORDERED: Magnesium Sulfate 2 GM IV* 2 GM/50 ML BAG IVPB ONE (08:55)
--- NOTE | 2018-01-21 12:18 | PN ---
Progress Note - Progress Note Date of Service: 01/21/18 SOAP: Subjective: [] No events ON. On MJ collar. Objective: []VSS AAOx3 RICHARD, CN II-XII grossly intact, except hesham hearing Motor 5/5 all extremities Sensory grossly intact to light touch Assessment: [] 77 yom fall C2 type III fracture, gastric Ca with mets Plan: [] ]Monitor VS, Neurochecks Maintain MJ collar Conservative treatment for C2 fracture. May follow up in office with new XR of C spine in 2 weeks Will be available if needed. Jody Lee MD
--- NOTE | 2018-01-21 16:05 | PN ---
Hospitalist Progress Note Date of Service: 01/21/18 Pt seen and examined. Meds and labs reviewed. ROS: Complains of 8/10 pain, chronic mostly on the back. Denied FRITZ/dizziness, F/C, N/V, CP, SOB, increased cough, sputum production, abd pain, diarrhea, constipation, dysuria, arthralgias, throat pain, and new skin lesions. The rest of the 14 point ROS are unremarkable. PHYSICAL EXAM: GEN APPEARANCE: Awake, not in acute distress HEENT: NC/AT, PERRLA, moist oral mucosa, (-) throat erythema NECK: Soft, supple, (-) cervical LAD, (-)JVD HEART: S1S2 WNL, RRR, No MRG CHEST: CTA, BL, GAE, No W/R/R ABD: Soft, ND/NT, NABS 4x Q EXT: No C/C/E SKIN: Warm to touch PSYCH: No active psychosis, hallucinations, depression, SI/HI Assess/Plan/Problems-Billing Assessment: 77 yo man with history of PVD, aortic valve replacement, afib, pacemaker and 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 - Patient Problems (1) Closed C2 fracture Current Visit: Yes Comment: --With Pelvic fractures--will consult Dr. Garcia today --Conservative treatment for C2 fracture. --To follow up in neurology office with new XR of C spine in 2 weeks (2) Metastatic adenocarcinoma Comment: --Gastric --s/p gastrectomy, partial splenectomy, partial pancreatectomy in 08/2017, currently undergoing cisplatin, now with bony mets that are new (spine, pelvis, sternum, ribs) --Awaiting any further reccs from Dr. Ba today for oncologic perspective going forward (3) Pneumonia Current Visit: Yes Status: Acute Code(s): J18.9 - PNEUMONIA, UNSPECIFIED ORGANISM SNOMED Code(s): 601401927 Comment: --Continue Levaquin --Cultures so far negative (4) Pain Current Visit: Yes Comment: --Chronic --Possibly due to mes (5) Hypomagnesemia Current Visit: Yes Comment: --Corrected --Continue watchful waiting (6) DVT prophylaxis Current Visit: Yes Status: Acute Code(s): KBP2127 - SNOMED Code(s): 152449491 Status and Disposition: --For PT eval --Continue to adjust pain management --Awaiting further input if any from Onco prior to D/C --For possible placement to rehab if no surgical plan by Orthopedics
[2018-01-21] MEDS: Levofloxacin TAB* 250 MG PO SCH (16:11)
[2018-01-21] MEDS: Gabapentin CAP(*) 100 MG PO SCH ×2 (17:20→21:18)
--- NOTE | 2018-01-21 17:20 | PN ---
Progress Note - Progress Note Date of Service: 01/21/18 Note: Full consult note dictated: A/P: R pubic ramus and sacral ala fractures. They look stable on CT. I would recommend standing pelvis xrays (AP/inlet/outlet) when he is able to stand. As long as the pelvis is stable on those xrays then I will allow him to advance activity as tolerated.
--- NOTE | 2018-01-21 22:20 | CONS ---
CC: Dr. Nancy Lee CONSULTATION REPORT: DATE OF CONSULT: 01/21/18 CHIEF COMPLAINT: Pelvis fractures. HISTORY OF PRESENT ILLNESS: Carlton is 77. He has a history of metastatic gastric adenocarcinoma. Shanta feliciano is treated with chemotherapy at [facility]. He was also recently hospitalized for pneumonia and pleural effusion. He has been released from the hospital. When he had a fall and had fractures, he was in severe pain. He was brought to the hospital where x-rays and CT scans were done. He has a C2, cervical spine fracture being treated in the collar by Dr. Lee. He has had a pelvis CT scan which showed a right superior ramus fracture and sacral ala fracture. He is complaining of righ t hip pain. It is difficult when he is lying down in bed and he lifts the leg up. The right femur w as also x-rayed. There is no evidence of significant metastatic disease or fracture. He does have severe arthritis in that hip. He is status post left total hip replacement. He is not having any pa in in the left leg or the arms. PAST MEDICAL HISTORY: 1. Aortic stenosis, status post aortic valve replacement. 2. Cardiac pacemaker. 3. Atrial fibrillation. 4. Osteoarthritis. 5. Dyslipidemia. 6. Peripheral vascular disease. 7. Peptic ulcer disease. 8. History of tobacco abuse. 9. BPH. 10. COPD. 11. History of DVT. 12. Metastatic gastric adenocarcinoma. No metastatic diseases to lower cervical spine, thoracolumba r spine, sternum, ribs, left scapula, and right hemipelvis. PAST SURGICAL HISTORY: 1. Left hip replacement. 2. Gastrectomy. 3. PEG tube placement. 4. Pacemaker placement. MEDICATIONS: 1. Maalox. 2. Ventolin. 3. Albuterol. 4. Lipitor. 5. Vitamin D. 6. Dexamethasone. 7. Docusate. 8. Zetia. 9. Ferrous sulfate. 10. Levofloxacin. 11. Imodium. 12. Robaxin. 13. Dulera. 14. Zofran. ALLERGIES: AMIODARONE. FAMILY HISTORY: Noncontributory. SOCIAL HISTORY: He lives with his , Kalie in [place]. He is a former smoker. He does not u se alcohol. He has 2 children and 2 grandchildren, both of whom live in the local area. REVIEW OF SYSTEMS: He complains of some neck pain and right pelvis/hip pain. Otherwise negative. PHYSICAL EXAM: General: Afebrile. Vital signs are stable. HEENT: Normocephalic. He does have a c ervical collar in place. Musculoskeletal: He has a bandage over skin tear in the right elbow. The bandage is marked skin tear. He has minimal pain with log roll of the right hip. No pain with move ment of the left leg. He has nontender knee, ankle, and foot. Bilateral upper extremity exams are u nremarkable. He has tenderness over the right superior ramus. The pelvis is stable. On exam sizing machine tender iorly, there is a bit of tenderness in the posterior pelvis, although it is less in the anterior pelv is. DIAGNOSTIC STUDIES/LAB DATA: X-rays and CT scan were reviewed by me. It looks like he has a right s mall sacral ala fracture and right superior ramus fracture. He has an inferior ramus fracture as well . He has end-stage arthritis of the right hip and is status post left total hip replacement. I do n ot see any large lytic lesion in the area of the fracture. He does have couple of spots of sclerotic lesions in the pelvis. IMPRESSION: Right pelvic ring fractures involving the rami and likely a small sacral ala fracture. PLAN: The rami fractures look stable. They could be pathologic, but certainly there is nothing that needs to be treated surgically are stabilized, but I would recommend a standing, AP inlet and outlet views of the pelvis just to ensure pelvic ring stability. Based on the CT scan, it looks like it is almost certainly stable pelvis. In which case, I would let him advance activity as tolerated. I wi ll follow up the results of his pelvis x-rays. [id number]/[facility] #: [id number]
[2018-01-22] MEDS: oxyCODONE/Acetamin 5/325 MG* TAB PO PRN ×4 (04:53→18:21)
[2018-01-22 06:05] LABS: Hematocrit 26 % (42-52); Hemoglobin 8.8 g/dl (14.0-18.0); Mean Corpuscular HGB Conc 33 g/dl (31-36); Mean Corpuscular Hemoglobin 32 pg (27-31); Mean Corpuscular Volume 96 fL (80-94); Mean Platelet Volume 8.4 um3 (7.4-10.4); Platelet Count 154 10^3/ul (150-450); Red Blood Count 2.75 10^6/ul (4.0-5.4); Red Cell Distribution Width 22 % (10.5-15); White Blood Count 15.2 10^3/ul (3.5-10.8)
[2018-01-22 06:24] LABS: EGFR Non-African American 145.2 (>60)
[2018-01-22 06:52] LABS: Monocytes % 1 % (0-7)
[2018-01-22] MEDS: Tiotropium CAP.INH* CAP.INH/18 MCG (USE ORDER SET !) INH SCH (08:58)
[2018-01-22] MEDS: Mometasone/Formoter 200/5 MDI INH SCH ×2 (08:58→20:03)
[2018-01-22] MEDS: Ezetimibe TAB* 10 MG PO SCH (08:59)
[2018-01-22] MEDS: Ferrous Sulfate TAB* 325 MG PO SCH ×2 (08:59→20:59)
[2018-01-22] MEDS: Atorvastatin* 10 MG TAB PO SCH (08:59)
[2018-01-22] MEDS: Gabapentin CAP(*) 100 MG PO SCH ×3 (08:59→20:58)
[2018-01-22] MEDS: Docusate CAP* 100 MG PO SCH ×2 (08:59→20:59)
[2018-01-22] MEDS: Cholecalciferol TAB* 1000 UNITS PO SCH (08:59)
[2018-01-22] MEDS: Potassium Chlor TAB* 20 MEQ TAB.ER PO SCH (08:59)
--- NOTE | 2018-01-22 11:17 | PN ---
Progress Note - Progress Note Date of Service: 01/22/18 Note: Stable. Please obtain standing pelvis (AP/inlet/outlet) views when possible.
--- NOTE | 2018-01-22 13:31 | PN ---
Subjective Date of Service: 01/22/18 Social History: Unchanged from Admission Past Medical History: Unchanged from Admission Objective Active Medications: Al Hydrox/Mg Hydrox/Simethicone (Maalox Plus*) 30 ml PO Q6H PRN PRN Reason: INDIGESTION Albuterol (Ventolin 2.5 Mg/3 Ml Neb.Brea*) 2.5 mg INH [id number] AWAKE PRN PRN Reason: sob/wheezing Albuterol (Ventolin Hfa Inhaler*) 2 puff INH Q4H PRN PRN Reason: SOB/WHEEZING Atorvastatin Calcium (Lipitor*) 10 mg PO DAILY [facility] PRN Reason: Protocol Last Admin: 01/22/18 08:59 Dose: 10 mg Cholecalciferol (Vitamin D Tab*) 1,000 units PO DAILY [facility] Last Admin: 01/22/18 08:59 Dose: 1,000 units Dexamethasone (Decadron Tab*) 8 mg PO BID PRN PRN Reason: Post-chemotherapy Docusate Sodium (Colace Cap*) 100 mg PO BID [facility] Last Admin: 01/22/18 08:59 Dose: 100 mg Ezetimibe (Zetia Tab*) 10 mg PO DAILY [facility] Last Admin: 01/22/18 08:59 Dose: 10 mg Ferrous Sulfate (Ferrous Sulfate Tab*) 325 mg PO BID [facility] Last Admin: 01/22/18 08:59 Dose: 325 mg Gabapentin (Neurontin Cap(*)) 200 mg PO TID [facility] Last Admin: 01/22/18 08:59 Dose: 200 mg Levofloxacin (Levaquin Tab*) 250 mg PO Q24H [facility] Last Admin: 01/21/18 16:11 Dose: 250 mg Loperamide HCl (Imodium Cap*) 2 mg PO Q4H PRN PRN Reason: DIARRHEA Methocarbamol (Robaxin Tab*) 500 mg PO QID PRN PRN Reason: PAIN Mometasone Furoate/Formoterol Fumar (Dulera 200/5 Mdi*) 2 puff INH BID [facility] PRN Reason: Protocol Last Admin: 01/22/18 08:58 Dose: 2 puff Ondansetron HCl (Zofran Tab*) 4 mg PO Q8H PRN PRN Reason: NAUSEA Oxycodone/Acetaminophen (Percocet 5/325 Tab*) 1 tab PO Q4H PRN PRN Reason: Pain Last Admin: 01/22/18 08:59 Dose: 1 tab Potassium Chloride (Klor Con Er Tab*) 20 meq PO DAILY [facility] Last Admin: 01/22/18 08:59 Dose: 20 meq Tiotropium [place] (Spiriva Cap.Inh*) 1 cap INH DAILY [facility] Last Admin: 01/22/18 08:58 Dose: 1 cap Vital Signs - 8 hr 01/22/18 01/22/18 07:51 08:59 Temperature 97.7 F Pulse Rate 71 Respiratory 12 18 Rate Blood Pressure 110/64 (mmHg) O2 Sat by Pulse 96 Oximetry Oxygen Devices in Use Now: Nasal Cannula Result Diagrams: 01/22/18 05:55 01/22/18 05:55 Microbiology and Other Data: Microbiology 01/20/18 08:30 Gram Stain - Final Sputum Sputum Culture - Final Normal [place]elina Assess/Plan/Problems-Billing Assessment: 77 yo man with history of PVD, aortic valve replacement, afib, pacemaker and 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 - Patient Problems (1) Closed C2 fracture Current Visit: Yes Comment: --With Pelvic fractures--AP/outlet/inlet view ordered today after PT re-evaluation that pt can stand --Appreciate Dr. Samayoa's input (ortho) --Conservative treatment for C2 fracture. --To follow up in neurology office with new XR of C spine in 2 weeks (Dr. Little) (2) Metastatic adenocarcinoma Comment: --Gastric --s/p gastrectomy, partial splenectomy, partial pancreatectomy in 08/2017, currently undergoing cisplatin, now with bony mets that are new (spine, pelvis, sternum, ribs) --Awaiting any further reccs from Dr. Ba today for oncologic perspective going forward --Will re-address pt's openess to hospice tomorrow prior to possible D/C; consider palliative care referral to Dr. Mcgarry per Dr. Ba (3) Pneumonia Current Visit: Yes Status: Acute Code(s): J18.9 - PNEUMONIA, UNSPECIFIED ORGANISM SNOMED Code(s): 279453153 Comment: --Continue Levaquin, D#01/03 --Cultures so far negative (4) Pain Current Visit: Yes Comment: --Chronic --Improved yesterday with addition of Gabapentin --Possibly due to mets (5) Hypomagnesemia Current Visit: Yes Comment: --Corrected --Continue watchful waiting (6) DVT prophylaxis Current Visit: Yes Status: Acute Code(s): [id number] - SNOMED Code(s): 831079860 Status and Disposition: --Await AP/inlet/outlet pelvic X-ray --Awaiting further input if any from Onco prior to D/C and possibly palliative care if pt still wants to be full code given gastric CA is thought to be incurable --For possible placement to rehab if no surgical plan by Orthopedics
--- NOTE | 2018-01-22 14:56 | RAD ---
Indication: Pelvic fractures including at the junction of the RIGHT os pubis and superior pubic ramus, mid RIGHT inferior pubic ramus, and RIGHT sacral ala documented on January 19, 2018 CT. Comparison: January 19, 2018 CT Technique: Standing AP, inlet, and outlet views of the pelvis. Report: Grossly nondisplaced RIGHT superior pubic ramus/osteophytosis and inferior pelvic ramus fractures noted. The sacral ala fracture documented on CT is not conspicuous on radiographs without contents limiting assessment. Advanced superior joint space narrowing at the RIGHT hip as well as partial loss of femoral head sphericity, subchondral sclerosis, and subchondral cystic change. LEFT hip prosthesis. Peripheral vascular calcifications. Urinary catheter noted. Unremarkable soft tissue contours. IMPRESSION: 1. Grossly nondisplaced RIGHT anterior pelvis fractures. Known RIGHT sacroiliac fracture is not conspicuous on radiographs. 2. 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
[2018-01-22] MEDS: Levofloxacin TAB* 250 MG PO SCH (16:00)
[2018-01-23] MEDS: oxyCODONE/Acetamin 5/325 MG* TAB PO PRN ×3 (01:32→20:47)
[2018-01-23 06:18] LABS: Hematocrit 27 % (42-52); Hemoglobin 8.7 g/dl (14.0-18.0); Mean Corpuscular HGB Conc 33 g/dl (31-36); Mean Corpuscular Hemoglobin 32 pg (27-31); Mean Corpuscular Volume 97 fL (80-94); Mean Platelet Volume 8.4 um3 (7.4-10.4); Platelet Count 194 10^3/ul (150-450); Red Blood Count 2.73 10^6/ul (4.0-5.4); Red Cell Distribution Width 23 % (10.5-15); White Blood Count 17.5 10^3/ul (3.5-10.8)
[2018-01-23 06:33] LABS: EGFR Non-African American 124.2 (>60)
[2018-01-23 06:51] LABS: Monocytes % 5 % (0-7); Schistocytes 1+
[2018-01-23] MEDS: Gabapentin CAP(*) 100 MG PO SCH ×3 (08:54→20:46)
[2018-01-23] MEDS: Docusate CAP* 100 MG PO SCH ×2 (08:54→20:46)
[2018-01-23] MEDS: Potassium Chlor TAB* 20 MEQ TAB.ER PO SCH (08:55)
[2018-01-23] MEDS: Ezetimibe TAB* 10 MG PO SCH (08:57)
[2018-01-23] MEDS: Atorvastatin* 10 MG TAB PO SCH (08:57)
[2018-01-23] MEDS: Cholecalciferol TAB* 1000 UNITS PO SCH (08:57)
[2018-01-23] MEDS: Ferrous Sulfate TAB* 325 MG PO SCH ×2 (08:57→20:47)
[2018-01-23] MEDS ORDERED: Magnesium Sulfate 1 GM IV* 1 GM/100 ML BAG IV ONE (09:03)
--- NOTE | 2018-01-23 11:23 | PN ---
Progress Note - Progress Note Date of Service: 01/23/18 SOAP: Subjective: []Doing ok, did some walking over weekend. Pain controlled. Eating some. No major changes. Al Hydrox/Mg Hydrox/Simethicone (Maalox Plus*) 30 ml PO Q6H PRN PRN Reason: INDIGESTION Albuterol (Ventolin 2.5 Mg/3 Ml Neb.Brea*) 2.5 mg INH [id number] AWAKE PRN PRN Reason: sob/wheezing Albuterol (Ventolin Hfa Inhaler*) 2 puff INH Q4H PRN PRN Reason: SOB/WHEEZING Atorvastatin Calcium (Lipitor*) 10 mg PO DAILY [facility] PRN Reason: Protocol Last Admin: 01/23/18 08:57 Dose: 10 mg Cholecalciferol (Vitamin D Tab*) 1,000 units PO DAILY [facility] Last Admin: 01/23/18 08:57 Dose: 1,000 units Dexamethasone (Decadron Tab*) 8 mg PO BID PRN PRN Reason: Post-chemotherapy Docusate Sodium (Colace Cap*) 100 mg PO BID [facility] Last Admin: 01/23/18 08:54 Dose: 100 mg Ezetimibe (Zetia Tab*) 10 mg PO DAILY [facility] Last Admin: 01/23/18 08:57 Dose: 10 mg Ferrous Sulfate (Ferrous Sulfate Tab*) 325 mg PO BID [facility] Last Admin: 01/23/18 08:57 Dose: 325 mg Gabapentin (Neurontin Cap(*)) 200 mg PO TID [facility] Last Admin: 01/23/18 08:54 Dose: 200 mg Levofloxacin (Levaquin Tab*) 250 mg PO Q24H [facility] Last Admin: 01/22/18 16:00 Dose: 250 mg Loperamide HCl (Imodium Cap*) 2 mg PO Q4H PRN PRN Reason: DIARRHEA Methocarbamol (Robaxin Tab*) 500 mg PO QID PRN PRN Reason: PAIN Mometasone Furoate/Formoterol Fumar (Dulera 200/5 Mdi*) 2 puff INH BID [facility] PRN Reason: Protocol Last Admin: 01/22/18 20:03 Dose: 2 puff Ondansetron HCl (Zofran Tab*) 4 mg PO Q8H PRN PRN Reason: NAUSEA Oxycodone/Acetaminophen (Percocet 5/325 Tab*) 1 tab PO Q4H PRN PRN Reason: Pain Last Admin: 01/23/18 01:32 Dose: 1 tab Potassium Chloride (Klor Con Er Tab*) 20 meq PO DAILY [facility] Last Admin: 01/23/18 08:55 Dose: 20 meq Tiotropium [place] (Spiriva Cap.Inh*) 1 cap INH DAILY [facility] Last Admin: 01/22/18 08:58 Dose: 1 cap Objective: [] Vital Signs Temp Pulse Resp BP Pulse Ox 98.1 F 75 18 102/57 97 01/23/18 07:42 01/23/18 07:42 01/23/18 08:54 01/23/18 07:42 01/23/18 07:42 HEENT - pale, no oral lesions, collar. CTA RRR S1S2 +BS, healed scar, PEG, no masses Ext no C/C/E AAOx3 Assessment: []77 year old with locally advanced gastric cancer. Surgery and adjuvant chemotherapy with difficult course. Follow up bone scan last week positive for diffuse activity, possible metastatic cancer and CT scans show possible diffuse lytic disease. Presents after fall with pelvis and C2 fracture. Discussed that we need to confirm if the process in his bones is metastatic gastric cancer. If it is then therapy will be very difficult if possible at all. Discussed how difficult chemotherapy was for him and that in the palliative setting cancer treatment can detract from instead of add to QOL. Plan: []1. Biopsy. Case reviewed with Dr. Gee and there are accessible bone lesions but need to correlate with the bone scan. I will have our office call Karthik and his will try and obtain scan as well. 2. He will meet with Dr. Mcgarry as well to discuss palliative care. 3. Continue PT and working to discharge.
[2018-01-23] MEDS: Tiotropium CAP.INH* CAP.INH/18 MCG (USE ORDER SET !) INH SCH (12:36)
[2018-01-23] MEDS: Mometasone/Formoter 200/5 MDI INH SCH ×2 (12:37→19:59)
--- NOTE | 2018-01-23 15:19 | PN ---
Progress Note - Progress Note Date of Service: 01/23/18 SOAP: Subjective: []Patient seen OOB in chair. He has no pain currently, states that his right groin and back are painful for a few minutes after walking or transfers. Denies CP, SOB, dizziness, nausea. Objective: [] Vital Signs Temp 98.1 F 01/23/18 07:42 Pulse 75 01/23/18 07:42 Resp 18 01/23/18 13:24 BP 102/57 01/23/18 07:42 Pulse Ox 97 01/23/18 07:42 Intake & Output 01/22/18 01/23/18 01/23/18 18:59 06:59 18:59 Intake Total 410 1725 440 Output Total 775 1400 650 Balance -365 325 -210 Intake: Oral 410 530 440 Tube Feeding 1165 Tube Feeding Flush Amount 30 Output: [place] 775 1400 650 Other: Date of Last Bowel 01/23/2018 Movement # Bowel Movements 1 Estimated Stool Amount Small Laboratory Last Values WBC 17.5 10^3/ul (3.5-10.8) H 01/23/18 06:04 RBC 2.73 10^6/ul (4.0-5.4) L 01/23/18 06:04 Hgb 8.7 g/dl (14.0-18.0) L 01/23/18 06:04 Hct 27 % (42-52) L 01/23/18 06:04 MCV 97 fL (80-94) H 01/23/18 06:04 MCH 32 pg (27-31) H 01/23/18 06:04 MCHC 33 g/dl (31-36) 01/23/18 06:04 RDW 23 % (10.5-15) H 01/23/18 06:04 Plt Count 194 10^3/ul (150-450) 01/23/18 06:04 MPV 8.4 um3 (7.4-10.4) 01/23/18 06:04 Neut % (Auto) Not Reportable 01/23/18 06:04 Lymph % (Auto) Not Reportable 01/23/18 06:04 Storey % (Auto) Not Reportable 01/23/18 06:04 Eos % (Auto) Not Reportable 01/23/18 06:04 Baso % (Auto) Not Reportable 01/23/18 06:04 Absolute Neuts (auto) Not Reportable 01/23/18 06:04 Absolute Lymphs (auto) Not Reportable 01/23/18 06:04 Absolute Monos (auto) Not Reportable 01/23/18 06:04 Absolute Eos (auto) Not Reportable 01/23/18 06:04 Absolute Basos (auto) Not Reportable 01/23/18 06:04 Absolute Nucleated RBC Not Reportable 01/23/18 06:04 Immature Gran % 6 % (0-9) 01/23/18 06:04 Neutrophils % 80 % (38-83) 01/23/18 06:04 Band Neutrophils % 5 % (0-8) 01/23/18 06:04 Lymphocytes % 9 % (25-47) L 01/23/18 06:04 Monocytes % 5 % (0-7) 01/23/18 06:04 Eosinophils % 0 % (0-6) 01/23/18 06:04 Basophils % 0 % (0-2) 01/23/18 06:04 Metamyelocytes % 1 % (0-2) 01/21/18 04:51 Myelocytes % 1 % (0-1) 01/23/18 06:04 Nucleated RBC % Not Reportable 01/23/18 06:04 Abs Neuts (Manual) 14.0 10^3/ul (1.5-7.7) H 01/23/18 06:04 Abs Lymphs (Manual) 1.6 10^3/ul (1.0-4.8) 01/23/18 06:04 Abs Monocytes (Manual) 0.9 10^3/ul (0-0.8) H 01/23/18 06:04 Absolute Eos (Manual) 0 10^3/ul (0-0.6) 01/23/18 06:04 Abs Basophils (Manual) 0 10^3/ul (0-0.2) 01/23/18 06:04 Nucleated RBCs/100 WBC 0 (0-0) 01/23/18 06:04 Toxic Granulation 1+ 01/23/18 06:04 Dohle Bodies Present 01/23/18 06:04 Large Platelets Present 01/22/18 05:55 Normal RBC Morphology Not Reportable 01/23/18 06:04 Polychromasia 1+ 01/23/18 06:04 Hypochromasia 1+ 01/22/18 05:55 Anisocytosis 2+ 01/23/18 06:04 Elliptocytes 1+ 01/23/18 06:04 Schistocytes 1+ 01/23/18 06:04 Hem Pathologist Commnt 01/23/18 06:04 INR (Anticoag Therapy) 1.29 (0.77-1.02) H 01/20/18 05:17 APTT 35.3 seconds (26.0-36.3) 01/19/18 08:40 Sodium 137 mmol/L (139-145) L 01/23/18 06:04 Potassium 4.7 mmol/L (3.5-5.0) 01/23/18 06:04 Chloride 101 mmol/L (101-111) 01/23/18 06:04 Carbon Dioxide 29 mmol/L (22-32) 01/23/18 06:04 Anion Gap 7 mmol/L (2-11) 01/23/18 06:04 BUN 22 mg/dL (6-24) 01/23/18 06:04 Creatinine 0.63 mg/dL (0.67-1.17) L 01/23/18 06:04 Est GFR ( Amer) 159.7 (>60) 01/23/18 06:04 Est GFR (Non-Af Amer) 124.2 (>60) 01/23/18 06:04 BUN/Creatinine Ratio 34.9 (8-20) H 01/23/18 06:04 Glucose 152 mg/dL (70-100) H 01/23/18 06:04 Lactic Acid 1.0 mmol/L (0.5-2.0) 01/19/18 08:40 Calcium 7.5 mg/dL (8.6-10.3) L 01/23/18 06:04 Magnesium 1.7 mg/dL (1.9-2.7) L 01/23/18 06:04 Iron 38 ug/dL (50-212) L 01/20/18 21:07 TIBC 260 mcg/dL (250-450) 01/20/18 21:07 % Saturation 15 % (15-55) 01/20/18 21:07 Unsat Iron Binding 222 ug/dL 01/20/18 21:07 Transferrin 186 mg/dL (203-362) L 01/20/18 21:07 Ferritin 806.2 ng/mL (24-336) H 01/20/18 21:07 Total Bilirubin 0.20 mg/dL (0.2-1.0) 01/22/18 05:55 AST 17 U/L (13-39) 01/22/18 05:55 ALT 18 U/L (7-52) 01/22/18 05:55 Alkaline Phosphatase 338 U/L (34-104) H 01/22/18 05:55 Troponin I 0.17 ng/mL (<0.04) H* 01/20/18 05:17 C-Reactive Protein 58.80 mg/L (< 5.00) H 01/19/18 08:40 Total Protein 4.4 g/dL (6.4-8.9) L 01/22/18 05:55 Albumin 2.4 g/dL (3.2-5.2) L 01/22/18 05:55 Globulin 2.0 g/dL (2-4) 01/22/18 05:55 Albumin/Globulin Ratio 1.2 (1-3) 01/22/18 05:55 Vitamin B12 698 pg/mL (180-914) 01/20/18 21:07 Urine Color Yellow 01/19/18 16:55 Urine Appearance Clear 01/19/18 16:55 Urine pH 8.0 (5-9) 01/19/18 16:55 Ur Specific [place] 1.040 (1.010-1.030) H 01/19/18 16:55 Urine Protein Negative (Negative) 01/19/18 16:55 Urine Ketones Negative (Negative) 01/19/18 16:55 Urine Blood Negative (Negative) 01/19/18 16:55 Urine Nitrate Negative (Negative) 01/19/18 16:55 Urine Bilirubin Negative (Negative) 01/19/18 16:55 Urine Urobilinogen Negative (Negative) 01/19/18 16:55 Ur Leukocyte Esterase Negative (Negative) 01/19/18 16:55 Urine Glucose Negative (Negative) 01/19/18 16:55 Urine Ascorbic Acid * (Negative) A 01/19/18 16:55 Blood Type A Negative 01/19/18 08:40 Antibody Screen Negative 01/19/18 08:40 General: Well appearing, NAD, sitting comfortably in chair MSK: RLE: no skin breakdown, thigh soft. No tenderness to palpation over pelvic region. Bl LE: Calves supple and nontender without erythema, edema or palpable cords. DF /PF and knee flexion intact without discomfort. DP 2+. Assessment: []R pubic ramus and sacral ala fractures. Plan: []WBAT PT/OT
[2018-01-23] MEDS: Levofloxacin TAB* 250 MG PO SCH (16:59)
--- NOTE | 2018-01-23 20:16 | PN ---
Subjective Date of Service: 01/23/18 Interval History: PHYSICAL EXAM: GEN APPEARANCE: Awake, not in acute distress HEENT: NC/AT, PERRLA, moist oral mucosa, (-) throat erythema NECK: Soft, supple, (-) cervical LAD, (-)JVD HEART: S1S2 WNL, RRR, No MRG CHEST: CTA, BL, GAE, No W/R/R ABD: Soft, ND/NT, NABS 4x Q EXT: No C/C/E SKIN: Warm to touch PSYCH: No active psychosis, hallucinations, depression, SI/HI Social History: Unchanged from Admission Past Medical History: Unchanged from Admission Objective Active Medications: Al Hydrox/Mg Hydrox/Simethicone (Maalox Plus*) 30 ml PO Q6H PRN PRN Reason: INDIGESTION Albuterol (Ventolin 2.5 Mg/3 Ml Neb.Brea*) 2.5 mg INH [id number] AWAKE PRN PRN Reason: sob/wheezing Albuterol (Ventolin Hfa Inhaler*) 2 puff INH Q4H PRN PRN Reason: SOB/WHEEZING Atorvastatin Calcium (Lipitor*) 10 mg PO DAILY [facility] PRN Reason: Protocol Last Admin: 01/23/18 08:57 Dose: 10 mg Cholecalciferol (Vitamin D Tab*) 1,000 units PO DAILY [facility] Last Admin: 01/23/18 08:57 Dose: 1,000 units Dexamethasone (Decadron Tab*) 8 mg PO BID PRN PRN Reason: Post-chemotherapy Docusate Sodium (Colace Cap*) 100 mg PO BID [facility] Last Admin: 01/23/18 08:54 Dose: 100 mg Ezetimibe (Zetia Tab*) 10 mg PO DAILY [facility] Last Admin: 01/23/18 08:57 Dose: 10 mg Ferrous Sulfate (Ferrous Sulfate Tab*) 325 mg PO BID [facility] Last Admin: 01/23/18 08:57 Dose: 325 mg Gabapentin (Neurontin Cap(*)) 200 mg PO TID [facility] Last Admin: 01/23/18 13:21 Dose: 200 mg Levofloxacin (Levaquin Tab*) 250 mg PO Q24H [facility] Last Admin: 01/23/18 16:59 Dose: 250 mg Loperamide HCl (Imodium Cap*) 2 mg PO Q4H PRN PRN Reason: DIARRHEA Methocarbamol (Robaxin Tab*) 500 mg PO QID PRN PRN Reason: PAIN Mometasone Furoate/Formoterol Fumar (Dulera 200/5 Mdi*) 2 puff INH BID [facility] PRN Reason: Protocol Last Admin: 01/23/18 19:59 Dose: 2 puff Ondansetron HCl (Zofran Tab*) 4 mg PO Q8H PRN PRN Reason: NAUSEA Oxycodone/Acetaminophen (Percocet 5/325 Tab*) 1 tab PO Q4H PRN PRN Reason: Pain Last Admin: 01/23/18 13:24 Dose: 1 tab Potassium Chloride (Klor Con Er Tab*) 20 meq PO DAILY [facility] Last Admin: 01/23/18 08:55 Dose: 20 meq Tiotropium [place] (Spiriva Cap.Inh*) 1 cap INH DAILY [facility] Last Admin: 01/23/18 12:36 Dose: 1 cap Vital Signs - 8 hr 01/23/18 01/23/18 01/23/18 13:21 13:24 15:23 Temperature 97.6 F Pulse Rate 87 Respiratory 18 18 16 Rate Blood Pressure 90/66 (mmHg) O2 Sat by Pulse 98 Oximetry 01/23/18 01/23/18 01/23/18 16:58 19:16 19:17 Temperature Pulse Rate Respiratory 18 17 17 Rate Blood Pressure (mmHg) O2 Sat by Pulse Oximetry 01/23/18 01/23/18 19:36 20:00 Temperature 98.0 F Pulse Rate 84 83 Respiratory 16 20 Rate Blood Pressure 90/53 (mmHg) O2 Sat by Pulse 98 92 Oximetry Oxygen Devices in Use Now: Nasal Cannula Result Diagrams: 01/23/18 06:04 01/23/18 06:04 Microbiology and Other Data: Microbiology 01/20/18 08:30 Gram Stain - Final Sputum Sputum Culture - Final Normal [place]elina Assess/Plan/Problems-Billing Assessment: 77 yo man with history of PVD, aortic valve replacement, afib, pacemaker and 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 - Patient Problems (1) Closed C2 fracture Current Visit: Yes Comment: --With Pelvic fractures --Appreciate Dr. Samayoa's input (ortho) --Conservative treatment for C2 fracture. --To follow up in neurology office with new XR of C spine in [address] weeks ([address] Little) (2) Metastatic adenocarcinoma Comment: --Gastric --s/p gastrectomy, partial splenectomy, partial pancreatectomy in 08/2017, currently undergoing cisplatin, now with bony mets that are new (spine, pelvis, sternum, ribs) --Per Dr. Ba, pt has accessible lesions for biopsy--will touch base in AM if W /U is inpatient or outpatient --Will re-address pt's openess to hospice tomorrow prior to possible D/C; consider palliative care referral to Dr. Mcgarry per Dr. Ba (3) Pneumonia Current Visit: Yes Status: Acute Code(s): J18.9 - PNEUMONIA, UNSPECIFIED ORGANISM SNOMED Code(s): 143376549 Comment: --Continue Levaquin, D#4/ --Cultures so far negative (4) Pain Current Visit: Yes Comment: --Chronic --Improved yesterday with addition of Gabapentin --Possibly due to mets (5) Hypomagnesemia Current Visit: Yes Comment: --Corrected --Continue watchful waiting (6) DVT prophylaxis Current Visit: Yes Status: Acute Code(s): VHB3932 - SNOMED Code(s): 982779607 Status and Disposition: --Will touch base in AM with Dr. aB regardig plans for biopsy inpt vs outpt
[2018-01-24] MEDS: Ezetimibe TAB* 10 MG PO SCH (08:54)
[2018-01-24] MEDS: Atorvastatin* 10 MG TAB PO SCH (08:54)
[2018-01-24] MEDS: Docusate CAP* 100 MG PO SCH ×2 (08:55→20:37)
[2018-01-24] MEDS: Potassium Chlor TAB* 20 MEQ TAB.ER PO SCH (08:55)
[2018-01-24] MEDS: Cholecalciferol TAB* 1000 UNITS PO SCH (08:55)
[2018-01-24] MEDS: Ferrous Sulfate TAB* 325 MG PO SCH ×2 (08:55→20:37)
[2018-01-24] MEDS: Gabapentin CAP(*) 100 MG PO SCH ×3 (08:55→20:37)
[2018-01-24] MEDS: Tiotropium CAP.INH* CAP.INH/18 MCG (USE ORDER SET !) INH SCH (09:17)
[2018-01-24] MEDS: Mometasone/Formoter 200/5 MDI INH SCH ×2 (09:18→19:19)
--- NOTE | 2018-01-24 09:42 | RAD ---
Indication: Pelvic fractures. Leukocytosis. Chronic obstructive pulmonary disease. Comparison: January 19, 2018 chest radiograph. Technique: Upright AP 0845 hours Report: Large LEFT pleural effusion with interval increase. Proportional atelectasis. Small RIGHT pleural effusion. Fractures of the RIGHT fifth and sixth ribs noted laterally. Negative for pneumothorax. Median sternotomy wires, mild cardiomegaly, RIGHT atrial and RIGHT ventricular level pacemaker leads. Unremarkable central pulmonary vasculature. Tip of LEFT chest port is at the level of the superior vena cava. IMPRESSION: 1. Multiple RIGHT rib fractures. Subjacent pulmonary opacity suspicious for pulmonary contusion or possibly subpleural hematoma. 2. Large LEFT pleural effusion with interval increase. 3. Negative for pneumothorax. Results discussed with Dr. Dexter 01/24/2018 9:25 AM EDT
[2018-01-24] MEDS: oxyCODONE/Acetamin 5/325 MG* TAB PO PRN (10:51)
[2018-01-24 12:09] LABS: Urine Appearance Clear; Urine Blood Negative (Negative); Urine Color Yellow; Urine Ketones Negative (Negative); Urine Protein 1+(30 mg/dL) (Negative); Urine Specific Gravity 1.016 (1.010-1.030); Urine Urobilinogen Negative (Negative)
--- NOTE | 2018-01-24 15:08 | PN ---
Subjective Date of Service: 01/24/18 Interval History: Pt seen and examined. Meds and labs reviewed. CXR was ordered yesterday given increasing WBC, however, no definitive consolidation was found but shows Multiple right rib fractures; subajacent pulmonary opacity suspicious for pulmonary contusion or possibly subpleural hematoma; large left pleural effusion with interval increase. No other O/N issues. PHYSICAL EXAM: GEN APPEARANCE: Awake, not in acute distress HEENT: NC/AT, PERRLA, moist oral mucosa, (-) throat erythema NECK: Soft, supple, (-) cervical LAD, (-)JVD HEART: S1S2 WNL, RRR, No MRG CHEST: CTA, BL, GAE, No W/R/R ABD: Soft, ND/NT, NABS 4x Q EXT: No C/C/E SKIN: Warm to touch PSYCH: No active psychosis, hallucinations, depression, SI/HI Social History: Unchanged from Admission Past Medical History: Unchanged from Admission Objective Active Medications: Al Hydrox/Mg Hydrox/Simethicone (Maalox Plus*) 30 ml PO Q6H PRN PRN Reason: INDIGESTION Albuterol (Ventolin 2.5 Mg/3 Ml Neb.Brea*) 2.5 mg INH RT.[id number] AWAKE PRN PRN Reason: sob/wheezing Albuterol (Ventolin Hfa Inhaler*) 2 puff INH Q4H PRN PRN Reason: SOB/WHEEZING Atorvastatin Calcium (Lipitor*) 10 mg PO DAILY [facility] PRN Reason: Protocol Last Admin: 01/24/18 08:54 Dose: 10 mg Cholecalciferol (Vitamin D Tab*) 1,000 units PO DAILY [facility] Last Admin: 01/24/18 08:55 Dose: 1,000 units Dexamethasone (Decadron Tab*) 8 mg PO BID PRN PRN Reason: Post-chemotherapy Docusate Sodium (Colace Cap*) 100 mg PO BID [facility] Last Admin: 01/24/18 08:55 Dose: 100 mg Ezetimibe (Zetia Tab*) 10 mg PO DAILY [facility] Last Admin: 01/24/18 08:54 Dose: 10 mg Ferrous Sulfate (Ferrous Sulfate Tab*) 325 mg PO BID [facility] Last Admin: 01/24/18 08:55 Dose: 325 mg Furosemide (Lasix Iv*) 40 mg IV DAILY [facility] Gabapentin (Neurontin Cap(*)) 200 mg PO TID [facility] Last Admin: 01/24/18 13:30 Dose: 200 mg Levofloxacin (Levaquin Tab*) 250 mg PO Q24H [facility] Last Admin: 01/23/18 16:59 Dose: 250 mg Loperamide HCl (Imodium Cap*) 2 mg PO Q4H PRN PRN Reason: DIARRHEA Methocarbamol (Robaxin Tab*) 500 mg PO QID PRN PRN Reason: PAIN Mometasone Furoate/Formoterol Fumar (Dulera 200/5 Mdi*) 2 puff INH BID [facility] PRN Reason: Protocol Last Admin: 01/24/18 09:18 Dose: 2 puff Ondansetron HCl (Zofran Tab*) 4 mg PO Q8H PRN PRN Reason: NAUSEA Oxycodone/Acetaminophen (Percocet 5/325 Tab*) 1 tab PO Q4H PRN PRN Reason: Pain Last Admin: 01/24/18 10:51 Dose: 1 tab Potassium Chloride (Klor Con Er Tab*) 20 meq PO DAILY [facility] Last Admin: 01/24/18 08:55 Dose: 20 meq Tiotropium [place] (Spiriva Cap.Inh*) 1 cap INH DAILY [facility] Last Admin: 01/24/18 09:17 Dose: 1 cap Vital Signs - 8 hr 01/24/18 01/24/18 01/24/18 07:44 08:00 08:55 Temperature 99.4 F Pulse Rate 79 Respiratory 18 18 18 Rate Blood Pressure 93/53 (mmHg) O2 Sat by Pulse 97 Oximetry 01/24/18 01/24/18 01/24/18 09:19 10:51 11:14 Temperature 99.0 F Pulse Rate 79 88 Respiratory 18 18 18 Rate Blood Pressure 93/55 (mmHg) O2 Sat by Pulse 97 99 Oximetry 01/24/18 13:30 Temperature Pulse Rate Respiratory 16 Rate Blood Pressure (mmHg) O2 Sat by Pulse Oximetry Oxygen Devices in Use Now: Nasal Cannula Result Diagrams: 01/23/18 06:04 01/23/18 06:04 Microbiology and Other Data: Microbiology 01/20/18 08:30 Gram Stain - Final Sputum Sputum Culture - Final Normal [place]el[place] Assess/Plan/Problems-Billing Assessment: 77 yo man with history of PVD, aortic valve replacement, afib, pacemaker and 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 - Patient Problems (1) Pleural effusion Current Visit: Yes Status: Acute Code(s): J90 - PLEURAL EFFUSION, NOT ELSEWHERE CLASSIFIED SNOMED Code(s): 32810646 Comment: --Will provide Lasix while decision is made --Given history of gastric metastatic adenoCA, could provide additional place where to sample --Spoke with Dr. Goel this AM and he mentions he will speak with his colleagues in his group who are currently rounding --Touched base with Dr. Payton given pt previously refused to have a diagnositic and therapeutic thoracentesis; informed of slightly increased pleural effusion --Will re-address possibility of having this done prior to D/C --Dr. Payton agrees with above (2) Closed C2 fracture Current Visit: Yes Comment: --With Pelvic fractures --Appreciate Dr. Samayoa's input (ortho) --Conservative treatment for C2 fracture. --To follow up in neurology office with new XR of C spine in 2 weeks (Dr. Little) (3) Metastatic adenocarcinoma Comment: --Gastric --s/p gastrectomy, partial splenectomy, partial pancreatectomy in 08/2017, currently undergoing cisplatin, now with bony mets that are new (spine, pelvis, sternum, ribs) --Per Dr. Ba, pt has accessible lesions for biopsy--will touch base in AM if W /U is inpatient or outpatient --Will re-address pt's openess to hospice tomorrow prior to possible D/C; consider palliative care referral to Dr. Mcgarry per Dr. Ba (4) Pneumonia Current Visit: Yes Status: Acute Code(s): J18.9 - PNEUMONIA, UNSPECIFIED ORGANISM SNOMED Code(s): 439426035 Comment: --Continue Levaquin, D#5/ --Cultures so far negative (5) Pain Current Visit: Yes Comment: --Chronic --Improved yesterday with addition of Gabapentin --Possibly due to mets (6) Hypomagnesemia Current Visit: Yes Comment: --Corrected --Continue watchful waiting (7) Ribs, multiple fractures Current Visit: Yes Status: Acute Code(s): S22.49XA - MULTIPLE FRACTURES OF RIBS, UNSP SIDE, INIT FOR CLOS FX SNOMED Code(s): 4916155 Comment: --Will order for incentive spirometry --Continue pain control --H&H remain stable to suggest significant clinical contusion (8) DVT prophylaxis Current Visit: Yes Status: Acute Code(s): ZCP1453 - SNOMED Code(s): 409590953 Status and Disposition: --Will touch base with Dr. Goel/Oncology in AM to see if planned biopsy is in this inpatient stay or oupt--mentions he will talk to his colleagues earlier.
[2018-01-24] MEDS: Levofloxacin TAB* 250 MG PO SCH (15:43)
[2018-01-24] MEDS: Furosemide IV* 10 MG/ML VIAL (40 MG) IV SCH (15:44)
--- NOTE | 2018-01-24 22:43 | CONSULT ---
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 He was initally treated at [place] with Cisplatin and 5 FU and then underwent gastrectomy with partial pancreatectomy and splenectomy in August 2017. He was found to have 19 of 31 nodes positive for cancer. He has had a PEG tube for nutrition since his surgery. He is still able to eat but has very poor appetite , and has significant malnutrition with an albumin of 2.4. He had post- operative complications and so chemotherapy was not resumed after his surgery until November of this year. He describes it as poorly tolerated. On the morning of admission here, 01/19/18, he had a fall due to his leg "giving out" while ambulating, and sustained multiple fractures, including C2 and pubic ramus. He had just been released from [place] earlier in the week where he had been treated for pneumonia with parapneumonic effusion. A bone scan on 01/17/18 was consistent with multifocal osseous metastatic disease. However, as Dr. Ba has observed, neither the pleural effusion nor the bone lesions have been biopsied to prove they are metastatic from his gastric adenocarcinoma. The patient refused a thoracentesis when offered by Dr. Payton on 01/20, and is awaiting Dr. Ba's recommendation based on his discussion with the patient's [place] oncologist Dr. Angela. The patient has additional diagnoses of aortic stenosis, s/p porcine AVR, AF with pacemaker, PVD, COPD, DJD, HLD, PUD, BPH and hx DVT. In speaking with him, it becomes clear that his coping strategy is to ignore his illness and claim good health. He told me he had no idea why he was in the hospital and felt his goal was to get his "sore bottom" fixed so that he would be able to ambulate again. He denied having any other illness. Lab Values: Abnormal Lab Results 01/24/18 11:20 Urine Color Yellow Urine Appearance Clear Urine pH 8.0 Ur Specific [place] 1.016 Urine Protein 1+(30 mg/dl) A Urine Ketones Negative Urine Blood Negative Urine Nitrate Negative Urine Bilirubin Negative Urine Urobilinogen Negative Ur Leukocyte Esterase Negative Urine WBC (Auto) 1+(6-10/hpf) A Urine RBC (Auto) 3+(>10/hpf) A Urine Bacteria Absent Urine Glucose Negative Urine Ascorbic Acid * A Laboratory Last Values WBC 17.5 10^3/ul (3.5-10.8) H 01/23/18 06:04 RBC 2.73 10^6/ul (4.0-5.4) L 01/23/18 06:04 Hgb 8.7 g/dl (14.0-18.0) L 01/23/18 06:04 Hct 27 % (42-52) L 01/23/18 06:04 MCV 97 fL (80-94) H 01/23/18 06:04 MCH 32 pg (27-31) H 01/23/18 06:04 MCHC 33 g/dl (31-36) 01/23/18 06:04 RDW 23 % (10.5-15) H 01/23/18 06:04 Plt Count 194 10^3/ul (150-450) 01/23/18 06:04 MPV 8.4 um3 (7.4-10.4) 01/23/18 06:04 Neut % (Auto) Not Reportable 01/23/18 06:04 Lymph % (Auto) Not Reportable 01/23/18 06:04 [place] % (Auto) Not Reportable 01/23/18 06:04 Eos % (Auto) Not Reportable 01/23/18 06:04 Baso % (Auto) Not Reportable 01/23/18 06:04 Absolute Neuts (auto) Not Reportable 01/23/18 06:04 Absolute Lymphs (auto) Not Reportable 01/23/18 06:04 Absolute Monos (auto) Not Reportable 01/23/18 06:04 Absolute Eos (auto) Not Reportable 01/23/18 06:04 Absolute Basos (auto) Not Reportable 01/23/18 06:04 Absolute Nucleated RBC Not Reportable 01/23/18 06:04 Immature Gran % 6 % (0-9) 01/23/18 06:04 Neutrophils % 80 % (38-83) 01/23/18 06:04 Band Neutrophils % 5 % (0-8) 01/23/18 06:04 Lymphocytes % 9 % (25-47) L 01/23/18 06:04 Monocytes % 5 % (0-7) 01/23/18 06:04 Eosinophils % 0 % (0-6) 01/23/18 06:04 Basophils % 0 % (0-2) 01/23/18 06:04 Metamyelocytes % 1 % (0-2) 01/21/18 04:51 Myelocytes % 1 % (0-1) 01/23/18 06:04 Nucleated RBC % Not Reportable 01/23/18 06:04 Abs Neuts (Manual) 14.0 10^3/ul (1.5-7.7) H 01/23/18 06:04 Abs Lymphs (Manual) 1.6 10^3/ul (1.0-4.8) 01/23/18 06:04 Abs Monocytes (Manual) 0.9 10^3/ul (0-0.8) H 01/23/18 06:04 Absolute Eos (Manual) 0 10^3/ul (0-0.6) 01/23/18 06:04 Abs Basophils (Manual) 0 10^3/ul (0-0.2) 01/23/18 06:04 Nucleated RBCs/100 WBC 0 (0-0) 01/23/18 06:04 Toxic Granulation 1+ 01/23/18 06:04 Dohle Bodies Present 01/23/18 06:04 Large Platelets Present 01/22/18 05:55 Normal RBC Morphology Not Reportable 01/23/18 06:04 Polychromasia 1+ 01/23/18 06:04 Hypochromasia 1+ 01/22/18 05:55 Anisocytosis 2+ 01/23/18 06:04 Elliptocytes 1+ 01/23/18 06:04 Schistocytes 1+ 01/23/18 06:04 Hem Pathologist Commnt 01/23/18 06:04 INR (Anticoag Therapy) 1.29 (0.77-1.02) H 01/20/18 05:17 APTT 35.3 seconds (26.0-36.3) 01/19/18 08:40 Sodium 137 mmol/L (139-145) L 01/23/18 06:04 Potassium 4.7 mmol/L (3.5-5.0) 01/23/18 06:04 Chloride 101 mmol/L (101-111) 01/23/18 06:04 Carbon Dioxide 29 mmol/L (22-32) 01/23/18 06:04 Anion Gap 7 mmol/L (2-11) 01/23/18 06:04 BUN 22 mg/dL (6-24) 01/23/18 06:04 Creatinine 0.63 mg/dL (0.67-1.17) L 01/23/18 06:04 Est GFR ( Amer) 159.7 (>60) 01/23/18 06:04 Est GFR (Non-Af Amer) 124.2 (>60) 01/23/18 06:04 BUN/Creatinine Ratio 34.9 (8-20) H 01/23/18 06:04 Glucose 152 mg/dL (70-100) H 01/23/18 06:04 Lactic Acid 1.0 mmol/L (0.5-2.0) 01/19/18 08:40 Calcium 7.5 mg/dL (8.6-10.3) L 01/23/18 06:04 Magnesium 1.7 mg/dL (1.9-2.7) L 01/23/18 06:04 Iron 38 ug/dL (50-212) L 01/20/18 21:07 TIBC 260 mcg/dL (250-450) 01/20/18 21:07 % Saturation 15 % (15-55) 01/20/18 21:07 Unsat Iron Binding 222 ug/dL 01/20/18 21:07 Transferrin 186 mg/dL (203-362) L 01/20/18 21:07 Ferritin 806.2 ng/mL (24-336) H 01/20/18 21:07 Total Bilirubin 0.20 mg/dL (0.2-1.0) 01/22/18 05:55 AST 17 U/L (13-39) 01/22/18 05:55 ALT 18 U/L (7-52) 01/22/18 05:55 Alkaline Phosphatase 338 U/L (34-104) H 01/22/18 05:55 Troponin I 0.17 ng/mL (<0.04) H* 01/20/18 05:17 C-Reactive Protein 58.80 mg/L (< 5.00) H 01/19/18 08:40 Total Protein 4.4 g/dL (6.4-8.9) L 01/22/18 05:55 Albumin 2.4 g/dL (3.2-5.2) L 01/22/18 05:55 Globulin 2.0 g/dL (2-4) 01/22/18 05:55 Albumin/Globulin Ratio 1.2 (1-3) 01/22/18 05:55 Vitamin B12 698 pg/mL (180-914) 01/20/18 21:07 Urine Color Yellow 01/24/18 11:20 Urine Appearance Clear 01/24/18 11:20 Urine pH 8.0 (5-9) 01/24/18 11:20 Ur Specific [place] 1.016 (1.010-1.030) 01/24/18 11:20 Urine Protein 1+(30 mg/dl) (Negative) A 01/24/18 11:20 Urine Ketones Negative (Negative) 01/24/18 11:20 Urine Blood Negative (Negative) 01/24/18 11:20 Urine Nitrate Negative (Negative) 01/24/18 11:20 Urine Bilirubin Negative (Negative) 01/24/18 11:20 Urine Urobilinogen Negative (Negative) 01/24/18 11:20 Ur Leukocyte Esterase Negative (Negative) 01/24/18 11:20 Urine WBC (Auto) 1+(6-10/hpf) (Absent) A 01/24/18 11:20 Urine RBC (Auto) 3+(>10/hpf) (Absent) A 01/24/18 11:20 Urine Bacteria Absent (Absent) 01/24/18 11:20 Urine Glucose Negative (Negative) 01/24/18 11:20 Urine Ascorbic Acid * (Negative) A 01/24/18 11:20 Blood Type A Negative 01/19/18 08:40 Antibody Screen Negative 01/19/18 08:40 - Objective Active Medications: Al Hydrox/Mg Hydrox/Simethicone (Maalox Plus*) 30 ml PO Q6H PRN PRN Reason: INDIGESTION Albuterol (Ventolin 2.5 Mg/3 Ml Neb.Brea*) 2.5 mg INH [id number] AWAKE PRN PRN Reason: sob/wheezing Albuterol (Ventolin Hfa Inhaler*) 2 puff INH Q4H PRN PRN Reason: SOB/WHEEZING Atorvastatin Calcium (Lipitor*) 10 mg PO DAILY [facility] PRN Reason: Protocol Last Admin: 01/24/18 08:54 Dose: 10 mg Cholecalciferol (Vitamin D Tab*) 1,000 units PO DAILY [facility] Last Admin: 01/24/18 08:55 Dose: 1,000 units Dexamethasone (Decadron Tab*) 8 mg PO BID PRN PRN Reason: Post-chemotherapy Docusate Sodium (Colace Cap*) 100 mg PO BID [facility] Last Admin: 01/24/18 20:37 Dose: 100 mg Ezetimibe (Zetia Tab*) 10 mg PO DAILY [facility] Last Admin: 01/24/18 08:54 Dose: 10 mg Ferrous Sulfate (Ferrous Sulfate Tab*) 325 mg PO BID [facility] Last Admin: 01/24/18 20:37 Dose: 325 mg Furosemide (Lasix Iv*) 40 mg IV DAILY [facility] Last Admin: 01/24/18 15:44 Dose: 40 mg Gabapentin (Neurontin Cap(*)) 200 mg PO TID [facility] Last Admin: 01/24/18 20:37 Dose: 200 mg Heparin Sodium (Porcine) (Heparin Flush Port (Ivad)) 5 ml FLUSH DAILY [facility] PRN Reason: Protocol Levofloxacin (Levaquin Tab*) 250 mg PO Q24H [facility] Last Admin: 01/24/18 15:43 Dose: 250 mg Loperamide HCl (Imodium Cap*) 2 mg PO Q4H PRN PRN Reason: DIARRHEA Methocarbamol (Robaxin Tab*) 500 mg PO QID PRN PRN Reason: PAIN Mometasone Furoate/Formoterol Fumar (Dulera 200/5 Mdi*) 2 puff INH BID [facility] PRN Reason: Protocol Last Admin: 01/24/18 19:19 Dose: 2 puff Ondansetron HCl (Zofran Tab*) 4 mg PO Q8H PRN PRN Reason: NAUSEA Oxycodone/Acetaminophen (Percocet 5/325 Tab*) 1 tab PO Q4H PRN PRN Reason: Pain Last Admin: 01/24/18 10:51 Dose: 1 tab Potassium Chloride (Klor Con Er Tab*) 20 meq PO DAILY [facility] Last Admin: 01/24/18 08:55 Dose: 20 meq Tiotropium [place] (Spiriva Cap.Inh*) 1 cap INH DAILY [facility] Last Admin: 01/24/18 09:17 Dose: 1 cap Vital Signs: Vital Signs: Temp Pulse Resp BP Pulse Ox 98.9 F 75 17 96/44 98 01/24/18 20:18 01/24/18 20:40 01/24/18 20:37 01/24/18 20:40 01/24/18 20:29 Intake and Output: Intake & Output 01/22/18 01/23/18 01/24/18 01/25/18 06:59 06:59 06:59 06:59 Intake Total 3313 2135 1646 370 Output Total 2775 2175 1775 1375 Balance 538 -40 -129 -1001 Intake: IV Fluids 30 NS 30 IVPB 58 Magnesium 58 Oral 800 940 440 370 Tube Feeding 2355 1165 1146 Tube Feeding Flush Amount 70 30 60 Output: [place] 2775 2175 1775 1375 Other: Date of Last Bowel 01/23/2018 Movement # Bowel Movements 1 0 1 Estimated Stool Amount Small Large ADLs: Meal Record Start: 01/19/18 15: 24 Freq: Status: Active Protocol: Document 01/22/18 10:36 [id number] (Rec: 01/22/18 10:39 [id number] S[facility]-C05) Document 01/22/18 18:35 [id number] (Rec: 01/22/18 18:35 [id number] SSU-C19) Document 01/23/18 10:01 [id number] (Rec: 01/23/18 10:03 [id number] S[facility]-C19) Document 01/23/18 14:18 [id number] (Rec: 01/23/18 14:20 [id number] [facility]-M17) Document 01/24/18 08:46 [id number] (Rec: 01/24/18 08:46 [id number] S[facility]-C02) Document 01/24/18 13:10 [id number] (Rec: 01/24/18 13:11 [id number] S[facility]-C10) Intake and Output Start: 01/19/18 15: 24 Freq: DAILY@0600,1400,2200 Status: Active Protocol: Document 01/19/18 16:59 [id number] (Rec: 01/19/18 16:59 [id number] S[facility]-M14) Document 01/19/18 22:29 [id number] (Rec: 01/19/18 22:30 [id number] S[facility]-C06) Document 01/20/18 05:38 [id number] (Rec: 01/20/18 05:39 [id number] [facility]-M17) Document 01/20/18 14:00 [id number] (Rec: 01/20/18 14:11 [id number] S[facility]-C03) Document 01/20/18 22:00 [id number] (Rec: 01/20/18 22:08 [id number] [facility]-M17) Document 01/21/18 06:00 [id number] (Rec: 01/21/18 06:03 [id number] S[facility]-M17) Document 01/21/18 07:17 [id number] (Rec: 01/21/18 07:18 [id number] S[facility]-M13) Document 01/21/18 14:47 [id number] (Rec: 01/21/18 14:47 [id number] SSU-C05) Document 01/21/18 22:00 [id number] (Rec: 01/21/18 22:14 [id number] S[facility]-M17) Document 01/22/18 03:10 [id number] (Rec: 01/22/18 03:10 [id number] SSU-C02) Document 01/22/18 06:00 [id number] (Rec: 01/22/18 06:08 [id number] S[facility]-M13) Document 01/22/18 06:38 [id number] (Rec: 01/22/18 06:38 [id number] S[facility]-M17) Document 01/22/18 14:38 [id number] (Rec: 01/22/18 14:38 [id number] SSU-C05) Document 01/22/18 22:00 [id number] (Rec: 01/22/18 22:32 [id number] [facility]- CITRIXM3) Document 01/23/18 01:33 [id number] (Rec: 01/23/18 01:33 [id number] S[facility]-C10) Document 01/23/18 05:35 [id number] (Rec: 01/23/18 05:35 [id number] S[facility]-C09) Document 01/23/18 06:07 [id number] (Rec: 01/23/18 06:08 [id number] S[facility]-M07) Document 01/23/18 14:18 [id number] (Rec: 01/23/18 14:20 [id number] SSU-M17) Document 01/23/18 21:57 [id number] (Rec: 01/23/18 21:58 [id number] SSU-M16) Document 01/24/18 05:29 [id number] (Rec: 01/24/18 05:29 [id number] S[facility]-M14) Document 01/24/18 06:03 [id number] (Rec: 01/24/18 06:03 [id number] S[facility]-C12) Document 01/24/18 12:49 [id number] (Rec: 01/24/18 12:50 [id number] SSU-C10) Document 01/24/18 14:34 [id number] (Rec: 01/24/18 14:35 [id number] S[facility]-C10) Document 01/24/18 20:25 [id number] (Rec: 01/24/18 21:51 [id number] SSU-M17) General Impression: Pleasant, smiling man in [place]-chair in [facility]. Head: Symmetrical Eyes: No Scleral Icterus, PERRLA Ears/Nose/Mouth/Throat: NL Teeth, Lips, Gums Neck: - - kashia j collar in place Cardiovascular: NL Sounds; No Murmurs; No JVD, - - left chest wall port, pacemaker. Healed sternotomy scar. Irregularly irregular rhythm. Respiratory: Symmetrical Chest Expansion and Respiratory Effort Abdominal: NL Sounds; No Tenderness; No Distention, - - J-tube with some drainage surrounding site, incisions well healed Extremities: - - RLE>LLE Neurological: Alert and Oriented x 3 - Assessment Assessment: We had a long discussion about his illness and the fact that he has extensive bone disease that would make any physically strenuous intervention, such as attempted CPR, very painful and ultimately unsuccessful. No one would recommend CPR in this clinical scenario. He filled out a MOLST, witnessed and agreed upon by his , specifying no attempt at CPR and no intubation. We did not complete Part E of the MOLST pending Dr. Ba's determination of whether further evaluation and imaging, and further therapy, might be offered. However, I did educate the patient about the availability of the Medicare Hospice benefit if he chooses to pursue no further life-prolonging therapy, so he understands his options going forward. He would certainly qualify for hospice services on the basis of his gastric adenocarcinoma with extensive osseous metastatic disease. - Plan Consult Plan (MU): Palliative - Time On Unit Date of Evaluation: 01/24/18 Hospice Consult Time in: 14:30 Hospice Consult Time Out: 15:30 Hospice Consult Time Total: 60
[2018-01-25 05:17] LABS: Hematocrit 26 % (42-52); Hemoglobin 8.6 g/dl (14.0-18.0); Mean Corpuscular HGB Conc 33 g/dl (31-36); Mean Corpuscular Hemoglobin 31 pg (27-31); Mean Corpuscular Volume 96 fL (80-94); Platelet Count 255 10^3/ul (150-450); Red Blood Count 2.73 10^6/ul (4.0-5.4); Red Cell Distribution Width 23 % (10.5-15); White Blood Count 16.2 10^3/ul (3.5-10.8)
[2018-01-25 05:33] LABS: EGFR Non-African American 126.5 (>60)
[2018-01-25 05:38] LABS: Monocytes % 4 % (0-7)
[2018-01-25] MEDS: Mometasone/Formoter 200/5 MDI INH SCH ×2 (08:07→20:25)
[2018-01-25] MEDS: Tiotropium CAP.INH* CAP.INH/18 MCG (USE ORDER SET !) INH SCH (08:07)
--- NOTE | 2018-01-25 08:41 | PN ---
Progress Note - Progress Note Date of Service: 01/25/18 SOAP: Subjective: [] []Doing a little better. Pain is 8-9/10 but trying to be more active. Most of pain is in hip. He has been walking, walked 1/4 [address] hallway yesterday. Eating, no fevers. Al Hydrox/Mg Hydrox/Simethicone (Maalox Plus*) 30 ml PO Q6H PRN PRN Reason: INDIGESTION Albuterol (Ventolin 2.5 Mg/3 Ml Neb.Brea*) 2.5 mg INH [id number] AWAKE PRN PRN Reason: sob/wheezing Albuterol (Ventolin Hfa Inhaler*) 2 puff INH Q4H PRN PRN Reason: SOB/WHEEZING Atorvastatin Calcium (Lipitor*) 10 mg PO DAILY [facility] PRN Reason: Protocol Last Admin: 01/24/18 08:54 Dose: 10 mg Cholecalciferol (Vitamin D Tab*) 1,000 units PO DAILY [facility] Last Admin: 01/24/18 08:55 Dose: 1,000 units Dexamethasone (Decadron Tab*) 8 mg PO BID PRN PRN Reason: Post-chemotherapy Docusate Sodium (Colace Cap*) 100 mg PO BID [facility] Last Admin: 01/24/18 20:37 Dose: 100 mg Ezetimibe (Zetia Tab*) 10 mg PO DAILY [facility] Last Admin: 01/24/18 08:54 Dose: 10 mg Ferrous Sulfate (Ferrous Sulfate Tab*) 325 mg PO BID [facility] Last Admin: 01/24/18 20:37 Dose: 325 mg Furosemide (Lasix Iv*) 40 mg IV DAILY [facility] Last Admin: 01/24/18 15:44 Dose: 40 mg Gabapentin (Neurontin Cap(*)) 200 mg PO TID [facility] Last Admin: 01/24/18 20:37 Dose: 200 mg Heparin Sodium (Porcine) (Heparin Flush Port (Ivad)) 5 ml FLUSH DAILY [facility] PRN Reason: Protocol Last Admin: 01/25/18 05:12 Dose: 5 ml Levofloxacin (Levaquin Tab*) 250 mg PO Q24H [facility] Last Admin: 01/24/18 15:43 Dose: 250 mg Loperamide HCl (Imodium Cap*) 2 mg PO Q4H PRN PRN Reason: DIARRHEA Methocarbamol (Robaxin Tab*) 500 mg PO QID PRN PRN Reason: PAIN Mometasone Furoate/Formoterol Fumar (Dulera 200/5 Mdi*) 2 puff INH BID [facility] PRN Reason: Protocol Last Admin: 01/25/18 08:07 Dose: 2 puff Morphine Sulfate (Ms Contin(*)) 15 mg PO Q12H [facility] Ondansetron HCl (Zofran Tab*) 4 mg PO Q8H PRN PRN Reason: NAUSEA Oxycodone/Acetaminophen (Percocet 5/325 Tab*) 1 tab PO Q4H PRN PRN Reason: Pain Last Admin: 01/24/18 10:51 Dose: 1 tab Potassium Chloride (Klor Con Er Tab*) 20 meq PO DAILY [facility] Last Admin: 01/24/18 08:55 Dose: 20 meq Tiotropium [place] (Spiriva Cap.Inh*) 1 cap INH DAILY [facility] Last Admin: 01/25/18 08:07 Dose: 1 cap Objective: [] Vital Signs Temp Pulse Resp BP Pulse Ox 98.6 F 74 18 90/52 97 01/25/18 03:33 01/25/18 08:12 01/25/18 08:12 01/25/18 05:11 01/25/18 03:33 HEENT - pale, no oral lesions, collar. CTA RRR S1S2 +BS, healed scar, PEG, no masses Ext no C/C/E AAOx3 Assessment: []77 year old with locally advanced gastric cancer. Surgery and adjuvant chemotherapy with difficult course. Follow up bone scan last week positive for diffuse activity, possible metastatic cancer and CT scans show possible diffuse lytic disease. Presents after fall with pelvis and C2 fracture. Discussed that we need to confirm if the process in his bones is metastatic gastric cancer. If it is then therapy will be very difficult if possible at all. At this time need biopsy of bone lesions to confirm diagnosis. Plan: []1. Biopsy. Case reviewed with Dr. Gee and right pelvis is most accessible site. Obtaining bone scan from [place] and will then be able to proceed. 2. He meet with Dr. Mcgarry in palliative care, DNR 3. Continue PT and working to discharge. Clear progress early in week. 4. Pain is not controlled. Will add Morphine ER 15 mg po bid and continue prn Oxycodone. 5. Pleural effusion is asymptomatic at current level of activity. I think it is ok to follow for now. 6. Taper Dex to 8 mg am and 4 mg pm 7. Disp. Discharge will be planned based on ability to walk and he can continue oncology work up as in or out patient and I will coordinate with his Karthik MCKINNON.
[2018-01-25] MEDS ORDERED: Magnesium Sulfate 2 GM IV* 2 GM/50 ML BAG IVPB ONE (08:45)
[2018-01-25] MEDS: Potassium Chlor TAB* 20 MEQ TAB.ER PO SCH (09:55)
[2018-01-25] MEDS: Dexamethasone TAB* 4 MG PO SCH ×2 (09:56→22:34)
[2018-01-25] MEDS: Ferrous Sulfate TAB* 325 MG PO SCH ×2 (09:56→22:33)
[2018-01-25] MEDS: Docusate CAP* 100 MG PO SCH ×2 (09:56→22:33)
[2018-01-25] MEDS: Cholecalciferol TAB* 1000 UNITS PO SCH (09:57)
[2018-01-25] MEDS: Gabapentin CAP(*) 100 MG PO SCH ×3 (09:57→22:33)
[2018-01-25] MEDS: Atorvastatin* 10 MG TAB PO SCH (09:58)
[2018-01-25] MEDS: Ezetimibe TAB* 10 MG PO SCH (10:01)
[2018-01-25] MEDS: Morphine TAB Extended Release (*) 15 MG TAB.ER PO SCH ×2 (10:01→22:32)
[2018-01-25] MEDS: Furosemide IV* 10 MG/ML VIAL (40 MG) IV SCH (10:03)
--- NOTE | 2018-01-25 15:41 | RAD ---
HISTORY: Guidance for thoracentesis COMPARISONS: Chest x-ray dated January 24, 2013 TECHNIQUE: Multiple transverse and longitudinal ultrasound images were obtained left hemithorax using grayscale imaging for localization for thoracentesis. FINDINGS: Limited transverse views of the left hemithorax history left-sided pleural effusion. The distance from the skin to the fusion is 1.8 cm. The distance from the skin to the center of the effusion is 5.8 cm. The site was marked. IMPRESSION: LIMITED VIEWS OF THE LEFT HEMITHORAX FOR LOCALIZATION FOR THORACENTESIS
--- NOTE | 2018-01-25 15:59 | PN ---
Subjective Date of Service: 01/25/18 Interval History: Pt seen and examined. Meds and labs reviewed. Pt's pain meds adjusted today ROS: Denied FRITZ/dizziness, F/C, N/V, CP, SOB, increased cough, sputum production , abd pain, diarrhea, constipation, dysuria, myalgias, arthralgias, throat pain , and new skin lesions. The rest of the 14 point ROS are unremarkable. PHYSICAL EXAM: GEN APPEARANCE: Awake, not in acute distress HEENT: NC/AT, PERRLA, moist oral mucosa, (-) throat erythema NECK: Soft, supple, (-) cervical LAD, (-)JVD HEART: S1S2 WNL, RRR, No MRG CHEST: CTA, BL, GAE, No W/R/R ABD: Soft, ND/NT, NABS 4x Q EXT: No C/C/E SKIN: Warm to touch PSYCH: No active psychosis, hallucinations, depression, SI/HI Social History: Unchanged from Admission Past Medical History: Unchanged from Admission Objective Active Medications: Al Hydrox/Mg Hydrox/Simethicone (Maalox Plus*) 30 ml PO Q6H PRN PRN Reason: INDIGESTION Albuterol (Ventolin 2.5 Mg/3 Ml Neb.Brea*) 2.5 mg INH [id number] AWAKE PRN PRN Reason: sob/wheezing Albuterol (Ventolin Hfa Inhaler*) 2 puff INH Q4H PRN PRN Reason: SOB/WHEEZING Atorvastatin Calcium (Lipitor*) 10 mg PO DAILY [facility] PRN Reason: Protocol Last Admin: 01/25/18 09:58 Dose: 10 mg Cholecalciferol (Vitamin D Tab*) 1,000 units PO DAILY [facility] Last Admin: 01/25/18 09:57 Dose: 1,000 units Dexamethasone (Decadron Tab*) 8 mg PO DAILY [facility] Last Admin: 01/25/18 09:56 Dose: 8 mg Dexamethasone (Decadron Tab*) 4 mg PO 2100 [facility] Docusate Sodium (Colace Cap*) 100 mg PO BID [facility] Last Admin: 01/25/18 09:56 Dose: 100 mg Ezetimibe (Zetia Tab*) 10 mg PO DAILY [facility] Last Admin: 01/25/18 10:01 Dose: 10 mg Ferrous Sulfate (Ferrous Sulfate Tab*) 325 mg PO BID [facility] Last Admin: 01/25/18 09:56 Dose: 325 mg Furosemide (Lasix Iv*) 40 mg IV DAILY [facility] Last Admin: 01/25/18 10:03 Dose: 40 mg Gabapentin (Neurontin Cap(*)) 200 mg PO TID [facility] Last Admin: 01/25/18 14:52 Dose: 200 mg Heparin Sodium (Porcine) (Heparin Flush Port (Ivad)) 5 ml FLUSH DAILY [facility] PRN Reason: Protocol Last Admin: 01/25/18 14:34 Dose: 5 ml Levofloxacin (Levaquin Tab*) 250 mg PO Q24H [facility] Last Admin: 01/24/18 15:43 Dose: 250 mg Loperamide HCl (Imodium Cap*) 2 mg PO Q4H PRN PRN Reason: DIARRHEA Magnesium Oxide (Magox 400 Tab*) 400 mg PO DAILY [facility] Methocarbamol (Robaxin Tab*) 500 mg PO QID PRN PRN Reason: PAIN Mometasone Furoate/Formoterol Fumar (Dulera 200/5 Mdi*) 2 puff INH BID [facility] PRN Reason: Protocol Last Admin: 01/25/18 08:07 Dose: 2 puff Morphine Sulfate (Ms Contin(*)) 15 mg PO Q12H [facility] Last Admin: 01/25/18 10:01 Dose: 15 mg Ondansetron HCl (Zofran Tab*) 4 mg PO Q8H PRN PRN Reason: NAUSEA Oxycodone/Acetaminophen (Percocet 5/325 Tab*) 1 tab PO Q4H PRN PRN Reason: Pain Last Admin: 01/24/18 10:51 Dose: 1 tab Potassium Chloride (Klor Con Er Tab*) 20 meq PO DAILY [facility] Last Admin: 01/25/18 09:55 Dose: 20 meq Tiotropium [place] (Spiriva Cap.Inh*) 1 cap INH DAILY [facility] Last Admin: 01/25/18 08:07 Dose: 1 cap Vital Signs - 8 hr 01/25/18 01/25/18 01/25/18 08:00 08:12 08:42 Temperature Pulse Rate 74 77 Respiratory 18 18 Rate Blood Pressure (mmHg) O2 Sat by Pulse 89 Oximetry 01/25/18 01/25/18 01/25/18 09:20 09:57 10:01 Temperature Pulse Rate Respiratory 18 18 Rate Blood Pressure 92/56 (mmHg) O2 Sat by Pulse Oximetry 01/25/18 01/25/18 01/25/18 11:35 11:54 12:53 Temperature 97.9 F Pulse Rate 79 81 Respiratory 16 18 Rate Blood Pressure 87/52 (mmHg) O2 Sat by Pulse 90 95 Oximetry 01/25/18 14:52 Temperature Pulse Rate Respiratory 18 Rate Blood Pressure (mmHg) O2 Sat by Pulse Oximetry Oxygen Devices in Use Now: Nasal Cannula Result Diagrams: 01/25/18 05:10 01/25/18 05:10 Additional Lab and Data: Lab Results 01/19/18 01/19/18 01/19/18 Range/Units 08:40 08:40 08:40 WBC 18.5 H (3.5-10.8) 10^3/ul RBC 2.86 L (4.0-5.4) 10^6/ul Hgb 9.1 L (14.0-18.0) g/dl Hct 27 L (42-52) % MCV 95 H (80-94) fL MCH 32 H (27-31) pg MCHC 33 (31-36) g/dl RDW 23 H (10.5-15) % Plt Count 82 L D (150-450) 10^3/ul MPV 8.7 (7.4-10.4) um3 Neut % (Auto) 92.5 H (38-83) % Lymph % (Auto) 4.6 L (25-47) % Pepin % (Auto) 2.5 (0-7) % Eos % (Auto) 0.1 (0-6) % Baso % (Auto) 0.3 (0-2) % Absolute Neuts (auto) 17.1 H (1.5-7.7) 10^3/ul Absolute Lymphs (auto) 0.9 L (1.0-4.8) 10^3/ul Absolute Monos (auto) 0.5 (0-0.8) 10^3/ul Absolute Eos (auto) 0 (0-0.6) 10^3/ul Absolute Basos (auto) 0.1 (0-0.2) 10^3/ul Absolute Nucleated RBC 0.1 10^3/ul Nucleated RBC % 0.5 INR (Anticoag Therapy) 1.21 H (0.77-1.02) APTT 35.3 (26.0-36.3) seconds Sodium 135 L (139-145) mmol/L Potassium 4.0 (3.5-5.0) mmol/L Chloride 101 (101-111) mmol/L Carbon Dioxide 27 (22-32) mmol/L Anion Gap 7 (2-11) mmol/L BUN 20 (6-24) mg/dL Creatinine 0.52 L (0.67-1.17) mg/dL Est GFR ( Amer) 199.2 (>60) Est GFR (Non-Af Amer) 154.9 (>60) BUN/Creatinine Ratio 38.5 H (8-20) Glucose 114 H (70-100) mg/dL Lactic Acid (0.5-2.0) mmol/L Calcium 7.4 L (8.6-10.3) mg/dL Magnesium 1.6 L (1.9-2.7) mg/dL Total Bilirubin 0.40 (0.2-1.0) mg/dL AST 30 (13-39) U/L ALT 27 (7-52) U/L Alkaline Phosphatase 362 H (34-104) U/L Troponin I 0.15 H* (<0.04) ng/mL C-Reactive Protein 58.80 H (< 5.00) mg/L Total Protein 4.7 L (6.4-8.9) g/dL Albumin 2.6 L (3.2-5.2) g/dL Globulin 2.1 (2-4) g/dL Albumin/Globulin Ratio 1.2 (1-3) Blood Type Antibody Screen 01/19/18 01/19/18 01/19/18 Range/Units 08:40 08:40 10:15 WBC (3.5-10.8) 10^3/ul RBC (4.0-5.4) 10^6/ul Hgb (14.0-18.0) g/dl Hct (42-52) % MCV (80-94) fL MCH (27-31) pg MCHC (31-36) g/dl RDW (10.5-15) % Plt Count (150-450) 10^3/ul MPV (7.4-10.4) um3 Neut % (Auto) (38-83) % Lymph % (Auto) (25-47) % Pepin % (Auto) (0-7) % Eos % (Auto) (0-6) % Baso % (Auto) (0-2) % Absolute Neuts (auto) (1.5-7.7) 10^3/ul Absolute Lymphs (auto) (1.0-4.8) 10^3/ul Absolute Monos (auto) (0-0.8) 10^3/ul Absolute Eos (auto) (0-0.6) 10^3/ul Absolute Basos (auto) (0-0.2) 10^3/ul Absolute Nucleated RBC 10^3/ul Nucleated RBC % INR (Anticoag Therapy) (0.77-1.02) APTT (26.0-36.3) seconds Sodium (139-145) mmol/L Potassium (3.5-5.0) mmol/L Chloride (101-111) mmol/L Carbon Dioxide (22-32) mmol/L Anion Gap (2-11) mmol/L BUN (6-24) mg/dL Creatinine (0.67-1.17) mg/dL Est GFR ( Amer) (>60) Est GFR (Non-Af Amer) (>60) BUN/Creatinine Ratio (8-20) Glucose (70-100) mg/dL Lactic Acid 1.0 (0.5-2.0) mmol/L Calcium (8.6-10.3) mg/dL Magnesium (1.9-2.7) mg/dL Total Bilirubin (0.2-1.0) mg/dL AST (13-39) U/L ALT (7-52) U/L Alkaline Phosphatase (34-104) U/L Troponin I 0.10 H* (<0.04) ng/mL C-Reactive Protein (< 5.00) mg/L Total Protein (6.4-8.9) g/dL Albumin (3.2-5.2) g/dL Globulin (2-4) g/dL Albumin/Globulin Ratio (1-3) Blood Type A Negative Antibody Screen Negative Microbiology and Other Data: Microbiology 01/20/18 08:30 Gram Stain - Final Sputum Sputum Culture - Final Normal Emelina Assess/Plan/Problems-Billing Assessment: 77 yo man with history of PVD, aortic valve replacement, afib, pacemaker and 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 - Patient Problems (1) Pleural effusion Current Visit: Yes Status: Acute Code(s): J90 - PLEURAL EFFUSION, NOT ELSEWHERE CLASSIFIED SNOMED Code(s): 91957373 Comment: --Discussed importance of thoracentesis especially in the setting of increasing pleural effusion. Pt finally agreed to have procedure done. --Informed Dr. Payton who mentioned she will be performing thoracentesis later today and will defer --Continue Lasix while awaiting for diagnostic and therapeutic thoracentesis --Given history of gastric metastatic adenoCA, could provide additional place where to sample (2) Closed C2 fracture Current Visit: Yes Comment: --With Pelvic fractures --Appreciate Dr. Samayoa's input (ortho) --Conservative treatment for C2 fracture. --To follow up in neurology office with new XR of C spine in 2 weeks (Dr[address] Little) (3) Metastatic adenocarcinoma Comment: --Gastric --s/p gastrectomy, partial splenectomy, partial pancreatectomy in 08/2017, currently undergoing cisplatin, now with bony mets that are new (spine, pelvis, sternum, ribs) --Per Dr. Ba, pt has accessible lesions for biopsy--will touch base in AM if W /U is inpatient or outpatient --Will re-address pt's openess to hospice tomorrow prior to possible D/C; consider palliative care referral to Dr. Mcgarry per Dr. Ba (4) Pneumonia Current Visit: Yes Status: Acute Code(s): J18.9 - PNEUMONIA, UNSPECIFIED ORGANISM SNOMED Code(s): 191735379 Comment: --Continue Levaquin, D#6/7 --Cultures so far negative (5) Pain Current Visit: Yes Comment: --Chronic --Adjusted today --Continue watchful waiting (6) Hypomagnesemia Current Visit: Yes Comment: --Corrected --Continue watchful waiting (7) Ribs, multiple fractures Current Visit: Yes Status: Acute Code(s): S22.49XA - MULTIPLE FRACTURES OF RIBS, UNSP SIDE, INIT FOR CLOS FX SNOMED Code(s): 6693783 Comment: --Will order for incentive spirometry --Continue pain control --H&H remain stable to suggest significant clinical contusion (8) DVT prophylaxis Current Visit: Yes Status: Acute Code(s): QQP9045 - SNOMED Code(s): 582509328 Status and Disposition: --Will touch base with Dr. Goel/Oncology in AM to see if planned biopsy is in this inpatient stay or oupt--mentions he will talk to his colleagues earlier.
--- NOTE | 2018-01-25 16:17 | RAD ---
HISTORY: Status post thoracentesis COMPARISONS: January 24, 2018 VIEWS: 1: frontal portable view of the chest at 4:00 PM FINDINGS: LINES AND TUBES: A left-sided chest port is noted with the tip overlying the superior vena cava. A right-sided pacemaker is noted. CARDIOMEDIASTINAL SILHOUETTE: The cardiomediastinal silhouette is normal for portable technique. PLEURA: There is a small residual left pleural effusion without appreciable pneumothorax. LUNG PARENCHYMA: The lungs are clear. ABDOMEN: The upper abdomen is clear. There is no subphrenic gas. BONES AND SOFT TISSUES: No bone or soft tissue abnormalities are noted. IMPRESSION: SMALL RESIDUAL LEFT PLEURAL EFFUSION WITHOUT APPRECIABLE PNEUMOTHORAX.
[2018-01-25] MEDS: Levofloxacin TAB* 250 MG PO SCH (16:40)
[2018-01-26 05:23] LABS: Hematocrit 28 % (42-52); Hemoglobin 9.1 g/dl (14.0-18.0); Mean Corpuscular HGB Conc 32 g/dl (31-36); Mean Corpuscular Hemoglobin 31 pg (27-31); Mean Corpuscular Volume 96 fL (80-94); Mean Platelet Volume 8.3 um3 (7.4-10.4); Platelet Count 321 10^3/ul (150-450); Red Blood Count 2.93 10^6/ul (4.0-5.4); Red Cell Distribution Width 23 % (10.5-15); White Blood Count 22.4 10^3/ul (3.5-10.8)
[2018-01-26 05:31] LABS: EGFR Non-African American 124.2 (>60)
[2018-01-26 05:39] LABS: ABS Basophils 0 10^3/ul (0-0.2); ABS Eosinophils 0 10^3/ul (0-0.6); ABS Lymphocytes 0.5 10^3/ul (1.0-4.8); ABS Monocytes 0.4 10^3/ul (0-0.8); ABS Neutrophils 21.4 10^3/ul (1.5-7.7); ABS Nucleated RBC 0.1 10^3/ul; Eosinophil % 0.1 % (0-6); Lymphocyte % 2.4 % (25-47); Nucleated Red Blood Cells % 0.2
[2018-01-26] MEDS ORDERED: Albumin Human 25%* 25 GM/100 ML BTL IV SCH (09:00)
[2018-01-26] MEDS: Mometasone/Formoter 200/5 MDI INH SCH ×2 (09:04→20:05)
[2018-01-26] MEDS: Tiotropium CAP.INH* CAP.INH/18 MCG (USE ORDER SET !) INH SCH (09:04)
[2018-01-26] MEDS: Potassium Chlor TAB* 20 MEQ TAB.ER PO SCH (09:15)
[2018-01-26] MEDS: Gabapentin CAP(*) 100 MG PO SCH ×3 (09:16→20:50)
[2018-01-26] MEDS: Ferrous Sulfate TAB* 325 MG PO SCH ×2 (09:16→20:50)
[2018-01-26] MEDS: Dexamethasone TAB* 4 MG PO SCH ×2 (09:16→20:51)
[2018-01-26] MEDS: Atorvastatin* 10 MG TAB PO SCH (09:16)
[2018-01-26] MEDS: Docusate CAP* 100 MG PO SCH ×2 (09:17→20:50)
[2018-01-26] MEDS: Cholecalciferol TAB* 1000 UNITS PO SCH (09:17)
[2018-01-26] MEDS: Magnesium Oxide TAB* 400 MG PO SCH (09:17)
[2018-01-26] MEDS: Ezetimibe TAB* 10 MG PO SCH (09:17)
[2018-01-26] MEDS: Morphine TAB Extended Release (*) 15 MG TAB.ER PO SCH ×2 (09:17→20:51)
[2018-01-26] MEDS: Albumin Human 25%* 25 GM/100 ML BTL IV SCH ×2 (09:21→11:16)
--- NOTE | 2018-01-26 09:24 | RAD ---
Indication: Increasing leukocytosis post thoracentesis. Assess for parenchymal disease and pneumothorax. Comparison: January 25, 2018 LEFT pleural space ultrasound. Preceding January 25, 2018 chest radiograph. Technique: Upright AP 0844 hours Report: Increased alveolar consolidation at the LEFT lung base compared with the exam of one day prior. Probable persistent small effusion. Patchy airspace consolidation also present at the RIGHT mid to lower lung zone with mild interval increase. Negative for pneumothorax. RIGHT atrial and RIGHT ventricular level pacemaker leads. Median sternotomy wires. Negative for cardiomegaly. Unremarkable central pulmonary vasculature. Tip of LEFT chest port at level of superior vena cava RIGHT atrial junction. IMPRESSION: Increased pulmonary consolidation particularly at the LEFT lung base is concerning for pneumonia given the clinical context. Negative for pneumothorax.
--- NOTE | 2018-01-26 15:41 | PN ---
Subjective Date of Service: 01/26/18 Interval History: PHYSICAL EXAM: GEN APPEARANCE: Awake, not in acute distress HEENT: NC/AT, PERRLA, moist oral mucosa, (-) throat erythema NECK: Soft, supple, (-) cervical LAD, (-)JVD HEART: S1S2 WNL, RRR, No MRG CHEST: (+) bibasal crackles, GAE, No W/R/R ABD: Soft, ND/NT, NABS 4x Q EXT: No C/C/E SKIN: Warm to touch PSYCH: No active psychosis, hallucinations, depression, SI/HI Social History: Unchanged from Admission Past Medical History: Unchanged from Admission Objective Active Medications: Al Hydrox/Mg Hydrox/Simethicone (Maalox Plus*) 30 ml PO Q6H PRN PRN Reason: INDIGESTION Albuterol (Ventolin 2.5 Mg/3 Ml Neb.Brea*) 2.5 mg INH [id number] AWAKE PRN PRN Reason: sob/wheezing Albuterol (Ventolin Hfa Inhaler*) 2 puff INH Q4H PRN PRN Reason: SOB/WHEEZING Atorvastatin Calcium (Lipitor*) 10 mg PO DAILY [facility] PRN Reason: Protocol Last Admin: 01/26/18 09:16 Dose: 10 mg Cholecalciferol (Vitamin D Tab*) 1,000 units PO DAILY [facility] Last Admin: 01/26/18 09:17 Dose: 1,000 units Dexamethasone (Decadron Tab*) 8 mg PO DAILY [facility] Last Admin: 01/26/18 09:16 Dose: 8 mg Dexamethasone (Decadron Tab*) 4 mg PO 2100 [facility] Last Admin: 01/25/18 22:34 Dose: 4 mg Docusate Sodium (Colace Cap*) 100 mg PO BID [facility] Last Admin: 01/26/18 09:17 Dose: 100 mg Ezetimibe (Zetia Tab*) 10 mg PO DAILY [facility] Last Admin: 01/26/18 09:17 Dose: 10 mg Ferrous Sulfate (Ferrous Sulfate Tab*) 325 mg PO BID [facility] Last Admin: 01/26/18 09:16 Dose: 325 mg Gabapentin (Neurontin Cap(*)) 200 mg PO TID [facility] Last Admin: 01/26/18 13:49 Dose: 200 mg Heparin Sodium (Porcine) (Heparin Flush Port (Ivad)) 5 ml FLUSH DAILY [facility] PRN Reason: Protocol Last Admin: 01/26/18 13:44 Dose: 5 ml Levofloxacin (Levaquin Tab*) 250 mg PO Q24H [facility] Last Admin: 01/25/18 16:40 Dose: 250 mg Loperamide HCl (Imodium Cap*) 2 mg PO Q4H PRN PRN Reason: DIARRHEA Magnesium Oxide (Magox 400 Tab*) 400 mg PO DAILY [facility] Last Admin: 01/26/18 09:17 Dose: 400 mg Methocarbamol (Robaxin Tab*) 500 mg PO QID PRN PRN Reason: PAIN Mometasone Furoate/Formoterol Fumar (Dulera 200/5 Mdi*) 2 puff INH BID [facility] PRN Reason: Protocol Last Admin: 01/26/18 09:04 Dose: 2 puff Morphine Sulfate (Ms Contin(*)) 15 mg PO Q12H [facility] Last Admin: 01/26/18 09:17 Dose: 15 mg Ondansetron HCl (Zofran Tab*) 4 mg PO Q8H PRN PRN Reason: NAUSEA Potassium Chloride (Klor Con Er Tab*) 20 meq PO DAILY [facility] Last Admin: 01/26/18 09:15 Dose: Not Given Tiotropium [place] (Spiriva Cap.Inh*) 1 cap INH DAILY [facility] Last Admin: 01/26/18 09:04 Dose: 1 cap Vital Signs - 8 hr 01/26/18 01/26/18 01/26/18 07:53 08:00 08:21 Temperature 97.7 F Pulse Rate 82 Respiratory 16 18 Rate Blood Pressure 97/64 (mmHg) O2 Sat by Pulse 93 Oximetry 01/26/18 01/26/18 01/26/18 09:08 09:16 09:17 Temperature Pulse Rate 81 Respiratory 16 16 16 Rate Blood Pressure (mmHg) O2 Sat by Pulse 90 Oximetry 01/26/18 01/26/18 01/26/18 09:20 09:48 10:58 Temperature 97.4 F 97.3 F 97.7 F Pulse Rate 74 86 132 Respiratory 16 16 14 Rate Blood Pressure 97/55 104/65 91/54 (mmHg) O2 Sat by Pulse 93 91 94 Oximetry 01/26/18 01/26/18 01/26/18 11:23 11:39 11:47 Temperature 97.7 F Pulse Rate 71 81 Respiratory 16 18 Rate Blood Pressure 98/57 (mmHg) O2 Sat by Pulse 92 Oximetry 01/26/18 01/26/18 01/26/18 12:38 13:49 15:24 Temperature 97.7 F Pulse Rate 67 Respiratory 16 18 16 Rate Blood Pressure 96/54 (mmHg) O2 Sat by Pulse 94 Oximetry Oxygen Devices in Use Now: None Result Diagrams: 01/26/18 05:07 01/26/18 05:07 Additional Lab and Data: Lab Results 01/19/18 01/19/18 01/19/18 Range/Units 08:40 08:40 08:40 WBC 18.5 H (3.5-10.8) 10^3/ul RBC 2.86 L (4.0-5.4) 10^6/ul Hgb 9.1 L (14.0-18.0) g/dl Hct 27 L (42-52) % MCV 95 H (80-94) fL MCH 32 H (27-31) pg MCHC 33 (31-36) g/dl RDW 23 H (10.5-15) % Plt Count 82 L D (150-450) 10^3/ul MPV 8.7 (7.4-10.4) um3 Neut % (Auto) 92.5 H (38-83) % Lymph % (Auto) 4.6 L (25-47) % [place] % (Auto) 2.5 (0-7) % Eos % (Auto) 0.1 (0-6) % Baso % (Auto) 0.3 (0-2) % Absolute Neuts (auto) 17.1 H (1.5-7.7) 10^3/ul Absolute Lymphs (auto) 0.9 L (1.0-4.8) 10^3/ul Absolute Monos (auto) 0.5 (0-0.8) 10^3/ul Absolute Eos (auto) 0 (0-0.6) 10^3/ul Absolute Basos (auto) 0.1 (0-0.2) 10^3/ul Absolute Nucleated RBC 0.1 10^3/ul Nucleated RBC % 0.5 INR (Anticoag Therapy) 1.21 H (0.77-1.02) APTT 35.3 (26.0-36.3) seconds Sodium 135 L (139-145) mmol/L Potassium 4.0 (3.5-5.0) mmol/L Chloride 101 (101-111) mmol/L Carbon Dioxide 27 (22-32) mmol/L Anion Gap 7 (2-11) mmol/L BUN 20 (6-24) mg/dL Creatinine 0.52 L (0.67-1.17) mg/dL Est GFR ( Amer) 199.2 (>60) Est GFR (Non-Af Amer) 154.9 (>60) BUN/Creatinine Ratio 38.5 H (8-20) Glucose 114 H (70-100) mg/dL Lactic Acid (0.5-2.0) mmol/L Calcium 7.4 L (8.6-10.3) mg/dL Magnesium 1.6 L (1.9-2.7) mg/dL Total Bilirubin 0.40 (0.2-1.0) mg/dL AST 30 (13-39) U/L ALT 27 (7-52) U/L Alkaline Phosphatase 362 H (34-104) U/L Troponin I 0.15 H* (<0.04) ng/mL C-Reactive Protein 58.80 H (< 5.00) mg/L Total Protein 4.7 L (6.4-8.9) g/dL Albumin 2.6 L (3.2-5.2) g/dL Globulin 2.1 (2-4) g/dL Albumin/Globulin Ratio 1.2 (1-3) Blood Type Antibody Screen 01/19/18 01/19/18 01/19/18 Range/Units 08:40 08:40 10:15 WBC (3.5-10.8) 10^3/ul RBC (4.0-5.4) 10^6/ul Hgb (14.0-18.0) g/dl Hct (42-52) % MCV (80-94) fL MCH (27-31) pg MCHC (31-36) g/dl RDW (10.5-15) % Plt Count (150-450) 10^3/ul MPV (7.4-10.4) um3 Neut % (Auto) (38-83) % Lymph % (Auto) (25-47) % [place] % (Auto) (0-7) % Eos % (Auto) (0-6) % Baso % (Auto) (0-2) % Absolute Neuts (auto) (1.5-7.7) 10^3/ul Absolute Lymphs (auto) (1.0-4.8) 10^3/ul Absolute Monos (auto) (0-0.8) 10^3/ul Absolute Eos (auto) (0-0.6) 10^3/ul Absolute Basos (auto) (0-0.2) 10^3/ul Absolute Nucleated RBC 10^3/ul Nucleated RBC % INR (Anticoag Therapy) (0.77-1.02) APTT (26.0-36.3) seconds Sodium (139-145) mmol/L Potassium (3.5-5.0) mmol/L Chloride (101-111) mmol/L Carbon Dioxide (22-32) mmol/L Anion Gap (2-11) mmol/L BUN (6-24) mg/dL Creatinine (0.67-1.17) mg/dL Est GFR ( Amer) (>60) Est GFR (Non-Af Amer) (>60) BUN/Creatinine Ratio (8-20) Glucose (70-100) mg/dL Lactic Acid 1.0 (0.5-2.0) mmol/L Calcium (8.6-10.3) mg/dL Magnesium (1.9-2.7) mg/dL Total Bilirubin (0.2-1.0) mg/dL AST (13-39) U/L ALT (7-52) U/L Alkaline Phosphatase (34-104) U/L Troponin I 0.10 H* (<0.04) ng/mL C-Reactive Protein (< 5.00) mg/L Total Protein (6.4-8.9) g/dL Albumin (3.2-5.2) g/dL Globulin (2-4) g/dL Albumin/Globulin Ratio (1-3) Blood Type A Negative Antibody Screen Negative Microbiology and Other Data: Microbiology 01/20/18 08:30 Gram Stain - Final Sputum Sputum Culture - Final Normal Emelina Assess/Plan/Problems-Billing Assessment: 77 yo man with history of PVD, aortic valve replacement, afib, pacemaker and 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 - Patient Problems (1) Leukocytosis Current Visit: Yes Status: Acute Code(s): D72.829 - ELEVATED WHITE BLOOD CELL COUNT, UNSPECIFIED SNOMED Code(s): 377618860 Comment: --CXR shows some new consolidation and is concerning given significant leukocytosis today --Pt, however, appears non-distressed and comfortable and leukocytosis could be due to reactive cause --Will re-check U/A ---No signs of pneumothorax --Given pt is immunocompromised given his known metastatic adenoCA, I will D/C Levaquin and place pt on Zosyn and Vancomycin, re-culture patient, and re- assess in AM. (2) Pleural effusion Current Visit: Yes Status: Acute Code(s): J90 - PLEURAL EFFUSION, NOT ELSEWHERE CLASSIFIED SNOMED Code(s): 31172931 Comment: --D/C'd Lasix given increasing renal function tests and S/P recent 1.6L thoracentesis --Will await cultures and cytology --Given history of gastric metastatic adenoCA, could provide additional place where to sample (3) Closed C2 fracture Current Visit: Yes Comment: --With Pelvic fractures --Appreciate Dr. Samayoa's input (ortho) --Conservative treatment for C2 fracture. --To follow up in neurology office with new XR of C spine in 2 weeks (Dr[address] Little) (4) Metastatic adenocarcinoma Comment: --Gastric --s/p gastrectomy, partial splenectomy, partial pancreatectomy in 08/2017, currently undergoing cisplatin, now with bony mets that are new (spine, pelvis, sternum, ribs) --Per Dr. Ba, pt has accessible lesions for biopsy--can be done as oupt per Dr. Goel (5) Pneumonia Current Visit: Yes Status: Acute Code(s): J18.9 - PNEUMONIA, UNSPECIFIED ORGANISM SNOMED Code(s): 840918818 Comment: --Please see above discussion --Levaquin was D/C'd due to increasing consolidation on CXR and white count today. Levaquin was replaced by Zosyn and Vanco --U/A C&S and blood cultures drawn---asked staff to draw first prior to giving antibiotics (6) Pain Current Visit: Yes Comment: --Chronic --Adjusted today --Continue watchful waiting (7) Ribs, multiple fractures Current Visit: Yes Status: Acute Code(s): S22.49XA - MULTIPLE FRACTURES OF RIBS, UNSP SIDE, INIT FOR CLOS FX SNOMED Code(s): 0250096 Comment: --Will order for incentive spirometry --Continue pain control --H&H remain stable to suggest significant clinical contusion (8) DVT prophylaxis Current Visit: Yes Status: Acute Code(s): RGK1537 - SNOMED Code(s): 076289655 Status and Disposition: --Continue to follow pleural fluid studies, cultures, and cytology.
[2018-01-26] MEDS ORDERED: Zosyn 3.375 gm X 1 dose, then dose per Pharmacy IVPB ONE ×2 (16:00)
[2018-01-26] MEDS ORDERED: Vancomycin per Pharmacy* NOTE FOLLOW UP PRN (16:01)
--- NOTE | 2018-01-26 16:33 | PRO ---
THORACENTESIS REPORT: DATE OF PROCEDURE: 01/25/18 - ROOM #[id number] PROCEDURE PERFORMED: Ultrasound-guided thoracentesis on left side. PREPROCEDURAL DIAGNOSIS: Large left pleural effusion. POSTPROCEDURAL DIAGNOSIS: Large left pleural effusion. ANESTHESIA: Local anesthesia with 1% lidocaine. DESCRIPTION OF PROCEDURE: Informed consent was obtained from the patient prior to the procedure after all the risks and benefits were thoroughly explained. The patient was having worsening left pleural effusion. Thoracentesis was performed for therapeutic and diagnostic reasons. The patient was sitting upright and leaning forwards. Portable ultrasound was utilized at bedside. Large amounts of pleural fluid was noted without any loculations. A CareFusion 8-[place] thoracentesis catheter was utilized at bedside. Strict aseptic precautions and all barrier techniques were followed. Area was anesthetized with chlorhexidine. Patient was sitting up and leaning forward during the procedure. Anesthesia was achieved with 1% lidocaine subcutaneously intradermally down into the pleural space taking precautions. CareFusion 8- [place] thoracentesis catheter was then inserted under manual suction. Catheter was left in space and needle was removed. Dark yellow turbid fluid was obtained under manual suction. 1200 mL of fluid was removed and sent into lab for biochemical, cytological, hematological testing. Catheter was removed and band aid was placed in the area. The patient tolerated procedure well. A post- procedure chest x-ray was performed and was verified. [id number]/[facility] #: [id number] [facility]ITALAlvarez
[2018-01-26 16:56] LABS: Urine Appearance Clear; Urine Blood Negative (Negative); Urine Color Yellow; Urine Ketones Negative (Negative); Urine Protein Negative (Negative); Urine Specific Gravity 1.021 (1.010-1.030); Urine Urobilinogen Negative (Negative)
[2018-01-26] MEDS ORDERED: Vancomycin(*) 1,000 MG in NS 0.9% 250 ML* 250 ML IVPB ONE (17:00)
[2018-01-26] MEDS: Vancomycin(*) 1,000 MG in NS 0.9% 250 ML* 250 ML IVPB SCH (19:05)
--- NOTE | 2018-01-26 19:09 | PN ---
Progress Note - Progress Note Date of Service: 01/26/18 - Pulmonary f/u note Note: Pt seen and examined at bedside. Pt reports no pain at thoracentesis site. No change in breathing, cough is improved Active Medications Generic Name Dose Route Start Last Admin Trade Name Freq PRN Reason Stop Dose Admin Al Hydrox/Mg Hydrox/Simethicone 30 ml 01/19/18 15:06 Maalox Plus* PO Q6H PRN INDIGESTION Albuterol 2.5 mg 01/19/18 15:06 Ventolin 2.5 Mg/3 Ml Neb.Brea* INH [id number] AWAKE PRN sob/wheezing Albuterol 2 puff 01/19/18 15:08 Ventolin Hfa Inhaler* INH Q4H PRN SOB/WHEEZING Atorvastatin Calcium 10 mg 01/20/18 09:00 01/26/18 09:16 Lipitor* PO 10 mg DAILY TORREY Administration Protocol Cholecalciferol 1,000 units 01/20/18 09:00 01/26/18 09:17 Vitamin D Tab* PO 1,000 units DAILY TORREY Administration Dexamethasone 8 mg 01/25/18 09:00 01/26/18 09:16 Decadron Tab* PO 8 mg DAILY TORREY Administration Dexamethasone 4 mg 01/25/18 21:00 01/25/18 22:34 Decadron Tab* PO 4 mg 2100 TORREY Administration Docusate Sodium 100 mg 01/19/18 21:00 01/26/18 09:17 Colace Cap* PO 100 mg BID TORREY Administration Ezetimibe 10 mg 01/20/18 09:00 01/26/18 09:17 Zetia Tab* PO 10 mg DAILY TORREY Administration Ferrous Sulfate 325 mg 01/19/18 21:00 01/26/18 09:16 Ferrous Sulfate Tab* PO 325 mg BID TORREY Administration Gabapentin 200 mg 01/21/18 17:00 01/26/18 13:49 Neurontin Cap(*) PO 200 mg TID TORREY Administration Heparin Sodium (Porcine) 5 ml 01/25/18 09:00 01/26/18 13:44 Heparin Flush Port (Ivad) FLUSH 5 ml DAILY TORREY Administration Protocol Piperacillin Sod/Tazobactam 100 mls @ 25 mls/hr 01/26/18 22:00 Sod 3.375 gm/ Sodium Chloride IVPB Q8H TORREY Vancomycin HCl 1,000 mg/ 250 mls @ 166.667 mls/hr 01/26/18 18:00 Sodium Chloride IVPB Q12H TORREY Loperamide HCl 2 mg 01/19/18 15:08 Imodium Cap* PO Q4H PRN DIARRHEA Magnesium Oxide 400 mg 01/26/18 09:00 01/26/18 09:17 Magox 400 Tab* PO 400 mg DAILY TORREY Administration Methocarbamol 500 mg 01/19/18 15:08 Robaxin Tab* PO QID PRN PAIN Mometasone Furoate/Formoterol Fumar 2 puff 01/19/18 22:00 01/26/18 09:04 Dulera 200/5 Mdi* INH 2 puff BID TORREY Administration Protocol Morphine Sulfate 15 mg 01/25/18 09:00 01/26/18 09:17 Ms Contin(*) PO 15 mg Q12H TORREY Administration Ondansetron HCl 4 mg 01/19/18 15:08 Zofran Tab* PO Q8H PRN NAUSEA Pharmacy Consult 1 note 01/26/18 16:01 Vancomycin Per Pharmacy* FOLLOW UP . PRN PER PROTOCOL Pharmacy Profile Note 1 note 01/28/18 06:00 Vancomycin Trough Check FOLLOW UP 01/28/18 06:01 0600 ONE Potassium Chloride 20 meq 01/20/18 09:00 01/26/18 09:15 Klor Con Er Tab* PO Not Given DAILY TORREY Tiotropium [place] 1 cap 01/20/18 09:00 01/26/18 09:04 Spiriva Cap.Inh* INH 1 cap DAILY TORREY Administration Vital Signs Temp Pulse Resp BP Pulse Ox 98.0 F 72 16 92/56 96 01/26/18 15:57 01/26/18 16:01 01/26/18 15:57 01/26/18 16:01 01/26/18 15:57 O/E:Pt in NAD HEENT: PERRLA, No JVD, C- collar in place Lungs: Good ae bl, decreased at bases CVS: S1, S2+ Abd: Soft, BS+ Et: No edema Skin: No rash or bruise Neuro: No focal defecits Laboratory Results - last 24 hr 01/25/18 01/25/18 01/25/18 15:40 15:40 15:40 WBC RBC Hgb Hct MCV MCH MCHC RDW Plt Count MPV Neut % (Auto) Lymph % (Auto) [place] % (Auto) Eos % (Auto) Baso % (Auto) Absolute Neuts (auto) Absolute Lymphs (auto) Absolute Monos (auto) Absolute Eos (auto) Absolute Basos (auto) Absolute Nucleated RBC Nucleated RBC % Sodium Potassium Chloride Carbon Dioxide Anion Gap BUN Creatinine Est GFR ( Amer) Est GFR (Non-Af Amer) BUN/Creatinine Ratio Glucose Calcium Magnesium Total Bilirubin AST ALT Alkaline Phosphatase Total Protein Albumin Globulin Albumin/Globulin Ratio Urine Color Urine Appearance Urine pH Ur Specific [place] Urine Protein Urine Ketones Urine Blood Urine Nitrate Urine Bilirubin Urine Urobilinogen Ur Leukocyte Esterase Urine Glucose Urine Ascorbic Acid Fluid Source Pleural fluid Pleural fluid Fluid Cell Count Rvw By Fluid Glucose 28 Fluid Total Protein Fluid LDH 433 01/25/18 01/26/18 01/26/18 15:40 05:07 05:07 WBC 22.4 H RBC 2.93 L Hgb 9.1 L Hct 28 L MCV 96 H MCH 31 MCHC 32 RDW 23 H Plt Count 321 MPV 8.3 Neut % (Auto) 95.7 H Lymph % (Auto) 2.4 L [place] % (Auto) 1.7 Eos % (Auto) 0.1 Baso % (Auto) 0.1 Absolute Neuts (auto) 21.4 H Absolute Lymphs (auto) 0.5 L Absolute Monos (auto) 0.4 Absolute Eos (auto) 0 Absolute Basos (auto) 0 Absolute Nucleated RBC 0.1 Nucleated RBC % 0.2 Sodium 136 L Potassium 4.5 Chloride 98 L Carbon Dioxide 29 Anion Gap 9 BUN 32 H Creatinine 0.63 L Est GFR ( Amer) 159.7 Est GFR (Non-Af Amer) 124.2 BUN/Creatinine Ratio 50.8 H Glucose 224 H Calcium 7.9 L Magnesium 2.0 Total Bilirubin 0.30 AST 29 ALT 23 Alkaline Phosphatase 361 H Total Protein 5.2 L Albumin 2.6 L Globulin 2.6 Albumin/Globulin Ratio 1.0 Urine Color Urine Appearance Urine pH Ur Specific [place] Urine Protein Urine Ketones Urine Blood Urine Nitrate Urine Bilirubin Urine Urobilinogen Ur Leukocyte Esterase Urine Glucose Urine Ascorbic Acid Fluid Source Pleural fluid Fluid Cell Count Rvw By Fluid Glucose Fluid Total Protein 2.9 Fluid LDH 01/26/18 15:37 WBC RBC Hgb Hct MCV MCH MCHC RDW Plt Count MPV Neut % (Auto) Lymph % (Auto) [place] % (Auto) Eos % (Auto) Baso % (Auto) Absolute Neuts (auto) Absolute Lymphs (auto) Absolute Monos (auto) Absolute Eos (auto) Absolute Basos (auto) Absolute Nucleated RBC Nucleated RBC % Sodium Potassium Chloride Carbon Dioxide Anion Gap BUN Creatinine Est GFR ( Amer) Est GFR (Non-Af Amer) BUN/Creatinine Ratio Glucose Calcium Magnesium Total Bilirubin AST ALT Alkaline Phosphatase Total Protein Albumin Globulin Albumin/Globulin Ratio Urine Color Yellow Urine Appearance Clear Urine pH 6.0 Ur Specific [place] 1.021 Urine Protein Negative Urine Ketones Negative Urine Blood Negative Urine Nitrate Negative Urine Bilirubin Negative Urine Urobilinogen Negative Ur Leukocyte Esterase Negative Urine Glucose 1+(50 mg/dl) A Urine Ascorbic Acid * A Fluid Source Fluid Cell Count Rvw By Fluid Glucose Fluid Total Protein Fluid LDH 77 year old with locally advanced gastric cancer s/p surgery and adjuvant chemotherapy with complicated course, recently treated for PNA, bone scan last week positive for diffuse activity, CT scans show possible diffuse lytic disease , s/p fall with pelvis and C2 fracture awaiting bone biopsy Pleural effusion on left side, s/p thoracentesis with removal of 1.6L of dark yellow fluid, cytology pending No PTX noted post procedure No change in breathing No further pulmonary intervention needed
[2018-01-26] MEDS ORDERED: Piperacillin/Tazobac ADVAN(*) 3.375 GM in NS 0.9% 100 ML* 100 ML IVPB SCH (22:00)
[2018-01-27] MEDS: Piperacillin/Tazobac ADVAN(*) 3.375 GM in NS 0.9% 100 ML* 100 ML IVPB SCH ×4 (04:46→23:22)
[2018-01-27] MEDS: Vancomycin(*) 1,000 MG in NS 0.9% 250 ML* 250 ML IVPB SCH (06:19)
[2018-01-27 06:57] LABS: Hematocrit 24 % (42-52); Hemoglobin 7.9 g/dl (14.0-18.0); Mean Corpuscular HGB Conc 33 g/dl (31-36); Mean Corpuscular Hemoglobin 32 pg (27-31); Mean Corpuscular Volume 96 fL (80-94); Mean Platelet Volume 8.2 um3 (7.4-10.4); Platelet Count 330 10^3/ul (150-450); Red Blood Count 2.47 10^6/ul (4.0-5.4); Red Cell Distribution Width 22 % (10.5-15); White Blood Count 23.7 10^3/ul (3.5-10.8)
[2018-01-27 07:06] LABS: EGFR Non-African American 126.5 (>60)
[2018-01-27 07:24] LABS: ABS Basophils 0 10^3/ul (0-0.2); ABS Eosinophils 0 10^3/ul (0-0.6); ABS Lymphocytes 0.6 10^3/ul (1.0-4.8); ABS Monocytes 1.2 10^3/ul (0-0.8); ABS Neutrophils 21.9 10^3/ul (1.5-7.7)
[2018-01-27 07:26] LABS: Monocytes % 1 % (0-7); Schistocytes 1+
[2018-01-27] MEDS: Tiotropium CAP.INH* CAP.INH/18 MCG (USE ORDER SET !) INH SCH (09:06)
[2018-01-27] MEDS: Mometasone/Formoter 200/5 MDI INH SCH ×2 (09:06→19:50)
[2018-01-27] MEDS: Gabapentin CAP(*) 100 MG PO SCH ×2 (09:44→14:56)
[2018-01-27] MEDS: Magnesium Oxide TAB* 400 MG PO SCH (09:44)
[2018-01-27] MEDS: Cholecalciferol TAB* 1000 UNITS PO SCH (09:45)
[2018-01-27] MEDS: Ferrous Sulfate TAB* 325 MG PO SCH (09:45)
[2018-01-27] MEDS: Docusate CAP* 100 MG PO SCH (09:45)
[2018-01-27] MEDS: Ezetimibe TAB* 10 MG PO SCH (09:45)
[2018-01-27] MEDS: Dexamethasone TAB* 4 MG PO SCH (09:45)
[2018-01-27] MEDS: Atorvastatin* 10 MG TAB PO SCH (09:45)
[2018-01-27] MEDS: Morphine TAB Extended Release (*) 15 MG TAB.ER PO SCH ×2 (09:45→21:04)
[2018-01-27] MEDS: Potassium Chlor TAB* 20 MEQ TAB.ER PO SCH (09:46)
--- NOTE | 2018-01-27 17:54 | PN ---
Subjective Date of Service: 01/27/18 Interval History: No pain. Appetite fair. One BM today. No new c/o. Social History: Unchanged from Admission Past Medical History: Unchanged from Admission Objective Active Medications: Al Hydrox/Mg Hydrox/Simethicone (Maalox Plus*) 30 ml PO Q6H PRN PRN Reason: INDIGESTION Albuterol (Ventolin 2.5 Mg/3 Ml Neb.Brea*) 2.5 mg INH [id number] AWAKE PRN PRN Reason: sob/wheezing Albuterol (Ventolin Hfa Inhaler*) 2 puff INH Q4H PRN PRN Reason: SOB/WHEEZING Cholecalciferol (Vitamin D Tab*) 1,000 units PO DAILY [facility] Last Admin: 01/27/18 09:45 Dose: 1,000 units Dexamethasone (Decadron Tab*) 8 mg PO DAILY [facility] Last Admin: 01/27/18 09:45 Dose: 8 mg Heparin Sodium (Porcine) (Heparin Flush Port (Ivad)) 5 ml FLUSH DAILY [facility] PRN Reason: Protocol Last Admin: 01/27/18 09:50 Dose: 5 ml Piperacillin Sod/Tazobactam (Sod 3.375 gm/ Sodium Chloride) 100 mls @ 200 mls/ hr IVPB Q6H [facility] Last Admin: 01/27/18 17:44 Dose: 200 mls/hr Loperamide HCl (Imodium Cap*) 2 mg PO Q4H PRN PRN Reason: DIARRHEA Mometasone Furoate/Formoterol Fumar (Dulera 200/5 Mdi*) 2 puff INH BID [facility] PRN Reason: Protocol Last Admin: 01/27/18 09:06 Dose: 2 puff Morphine Sulfate (Ms Contin(*)) 15 mg PO Q12H [facility] Last Admin: 01/27/18 09:45 Dose: 15 mg Ondansetron HCl (Zofran Tab*) 4 mg PO Q8H PRN PRN Reason: NAUSEA Pharmacy Profile Note (Vancomycin Trough Check) 1 note FOLLOW UP 0600 ONE Stop: 01/28/18 06:01 Polyethylene Glycol/Electrolytes (Miralax*) 17 gm PO BEDTIME [facility] Potassium Chloride (Klor Con Er Tab*) 20 meq PO DAILY [facility] Last Admin: 01/27/18 09:46 Dose: 20 meq Tiotropium [place] (Spiriva Cap.Inh*) 1 cap INH DAILY [facility]ORREY Last Admin: 01/27/18 09:06 Dose: 1 cap Vital Signs - 8 hr 01/27/18 01/27/18 01/27/18 11:35 11:45 14:56 Temperature 97.6 F Pulse Rate 71 Respiratory 16 18 16 Rate Blood Pressure 91/56 (mmHg) O2 Sat by Pulse 93 Oximetry Oxygen Devices in Use Now: None Appearance: Alert, in recliner chair. Neck collar in place. In good spirits. Looks comfortable. Eyes: No Scleral Icterus Neck: NL Appearance and Movements; NL JVP, No Thyroid Enlargement, Masses Respiratory: Symmetrical Chest Expansion and Respiratory Effort, Clear to Percussion, - - Sl diminished BS L chest Cardiovascular: NL Sounds; No Murmurs; No JVD, RRR, No Edema, - Extremities: No Edema, No Clubbing, Cyanosis, - Skin: No Rash or Ulcers, No Nodules or Sclerosis, - Neurological: Alert and Oriented x 3, NL Sensation Result Diagrams: 01/27/18 06:30 01/27/18 06:30 Additional Lab and Data: Lab Results 01/19/18 01/19/18 01/19/18 Range/Units 08:40 08:40 08:40 WBC 18.5 H (3.5-10.8) 10^3/ul RBC 2.86 L (4.0-5.4) 10^6/ul Hgb 9.1 L (14.0-18.0) g/dl Hct 27 L (42-52) % MCV 95 H (80-94) fL MCH 32 H (27-31) pg MCHC 33 (31-36) g/dl RDW 23 H (10.5-15) % Plt Count 82 L D (150-450) 10^3/ul MPV 8.7 (7.4-10.4) um3 Neut % (Auto) 92.5 H (38-83) % Lymph % (Auto) 4.6 L (25-47) % [place] % (Auto) 2.5 (0-7) % Eos % (Auto) 0.1 (0-6) % Baso % (Auto) 0.3 (0-2) % Absolute Neuts (auto) 17.1 H (1.5-7.7) 10^3/ul Absolute Lymphs (auto) 0.9 L (1.0-4.8) 10^3/ul Absolute Monos (auto) 0.5 (0-0.8) 10^3/ul Absolute Eos (auto) 0 (0-0.6) 10^3/ul Absolute Basos (auto) 0.1 (0-0.2) 10^3/ul Absolute Nucleated RBC 0.1 10^3/ul Nucleated RBC % 0.5 INR (Anticoag Therapy) 1.21 H (0.77-1.02) APTT 35.3 (26.0-36.3) seconds Sodium 135 L (139-145) mmol/L Potassium 4.0 (3.5-5.0) mmol/L Chloride 101 (101-111) mmol/L Carbon Dioxide 27 (22-32) mmol/L Anion Gap 7 (2-11) mmol/L BUN 20 (6-24) mg/dL Creatinine 0.52 L (0.67-1.17) mg/dL Est GFR ( Amer) 199.2 (>60) Est GFR (Non-Af Amer) 154.9 (>60) BUN/Creatinine Ratio 38.5 H (8-20) Glucose 114 H (70-100) mg/dL Lactic Acid (0.5-2.0) mmol/L Calcium 7.4 L (8.6-10.3) mg/dL Magnesium 1.6 L (1.9-2.7) mg/dL Total Bilirubin 0.40 (0.2-1.0) mg/dL AST 30 (13-39) U/L ALT 27 (7-52) U/L Alkaline Phosphatase 362 H (34-104) U/L Troponin I 0.15 H* (<0.04) ng/mL C-Reactive Protein 58.80 H (< 5.00) mg/L Total Protein 4.7 L (6.4-8.9) g/dL Albumin 2.6 L (3.2-5.2) g/dL Globulin 2.1 (2-4) g/dL Albumin/Globulin Ratio 1.2 (1-3) Blood Type Antibody Screen 01/19/18 01/19/18 01/19/18 Range/Units 08:40 08:40 10:15 WBC (3.5-10.8) 10^3/ul RBC (4.0-5.4) 10^6/ul Hgb (14.0-18.0) g/dl Hct (42-52) % MCV (80-94) fL MCH (27-31) pg MCHC (31-36) g/dl RDW (10.5-15) % Plt Count (150-450) 10^3/ul MPV (7.4-10.4) um3 Neut % (Auto) (38-83) % Lymph % (Auto) (25-47) % [place] % (Auto) (0-7) % Eos % (Auto) (0-6) % Baso % (Auto) (0-2) % Absolute Neuts (auto) (1.5-7.7) 10^3/ul Absolute Lymphs (auto) (1.0-4.8) 10^3/ul Absolute Monos (auto) (0-0.8) 10^3/ul Absolute Eos (auto) (0-0.6) 10^3/ul Absolute Basos (auto) (0-0.2) 10^3/ul Absolute Nucleated RBC 10^3/ul Nucleated RBC % INR (Anticoag Therapy) (0.77-1.02) APTT (26.0-36.3) seconds Sodium (139-145) mmol/L Potassium (3.5-5.0) mmol/L Chloride (101-111) mmol/L Carbon Dioxide (22-32) mmol/L Anion Gap (2-11) mmol/L BUN (6-24) mg/dL Creatinine (0.67-1.17) mg/dL Est GFR ( Amer) (>60) Est GFR (Non-Af Amer) (>60) BUN/Creatinine Ratio (8-20) Glucose (70-100) mg/dL Lactic Acid 1.0 (0.5-2.0) mmol/L Calcium (8.6-10.3) mg/dL Magnesium (1.9-2.7) mg/dL Total Bilirubin (0.2-1.0) mg/dL AST (13-39) U/L ALT (7-52) U/L Alkaline Phosphatase (34-104) U/L Troponin I 0.10 H* (<0.04) ng/mL C-Reactive Protein (< 5.00) mg/L Total Protein (6.4-8.9) g/dL Albumin (3.2-5.2) g/dL Globulin (2-4) g/dL Albumin/Globulin Ratio (1-3) Blood Type A Negative Antibody Screen Negative Microbiology and Other Data: Microbiology 01/20/18 08:30 Gram Stain - Final Sputum Sputum Culture - Final Normal Emelina Assess/Plan/Problems-Billing Assessment: 77 yo man with history of PVD, aortic valve replacement, afib, pacemaker and 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 - Patient Problems (1) Metastatic adenocarcinoma Current Visit: Yes Status: Acute Code(s): C79.9 - SECONDARY MALIGNANT NEOPLASM OF UNSPECIFIED SITE SNOMED Code(s): 026044214 Comment: --Gastric, surgery 09/11 in [facility], [address] LN positive. Pleural fluid showed signet-rign adenoca. ? resected tumor in [place] could be sent for [employer] testing. (2) Closed C2 fracture Current Visit: Yes Status: Acute Code(s): S12.100A - UNSP DISP FX OF SECOND CERVICAL VERTEBRA, INIT FOR CLOS FX SNOMED Code(s): 203092465 Comment: --With Pelvic fractures --Appreciate Dr. Samayoa's input (ortho) --Conservative treatment for C2 fracture. --To follow up in neurology office with new XR of C spine in 2 weeks (Dr[address] Little) Likely pathologic fx's. (3) Steroid long-term use Current Visit: Yes Status: Acute Code(s): YZL2045 - SNOMED Code(s): 174840186 Comment: DXM taper started 01/27. Status and Disposition: --Continue to follow pleural fluid studies, cultures, and cytology.
[2018-01-27] MEDS ORDERED: Polyethylene Glycol 3350* 17 GM PACKET PO SCH (21:00)
[2018-01-28] MEDS: Piperacillin/Tazobac ADVAN(*) 3.375 GM in NS 0.9% 100 ML* 100 ML IVPB SCH ×2 (05:11→11:51)
[2018-01-28] MEDS ORDERED: Vancomycin Trough Check NOTE FOLLOW UP ONE (06:00)
[2018-01-28] MEDS: Mometasone/Formoter 200/5 MDI INH SCH (07:33)
[2018-01-28] MEDS: Tiotropium CAP.INH* CAP.INH/18 MCG (USE ORDER SET !) INH SCH (07:34)
[2018-01-28] MEDS: Dexamethasone TAB* 4 MG PO SCH (08:53)
[2018-01-28] MEDS: Cholecalciferol TAB* 1000 UNITS PO SCH (08:54)
[2018-01-28] MEDS: Morphine TAB Extended Release (*) 15 MG TAB.ER PO SCH (08:54)
[2018-01-28] MEDS: Potassium Chlor TAB* 20 MEQ TAB.ER PO SCH (08:54)
--- NOTE | 2018-01-28 11:13 | PN ---
Subjective Date of Service: 01/28/18 Interval History: No subj change. Mild hip pain with walking. Nl BM again today. Social History: Unchanged from Admission Past Medical History: Unchanged from Admission Objective Active Medications: Al Hydrox/Mg Hydrox/Simethicone (Maalox Plus*) 30 ml PO Q6H PRN PRN Reason: INDIGESTION Albuterol (Ventolin 2.5 Mg/3 Ml Neb.Brea*) 2.5 mg INH [id number] AWAKE PRN PRN Reason: sob/wheezing Albuterol (Ventolin Hfa Inhaler*) 2 puff INH Q4H PRN PRN Reason: SOB/WHEEZING Cholecalciferol (Vitamin D Tab*) 1,000 units PO DAILY [facility] Last Admin: 01/28/18 08:54 Dose: 1,000 units Dexamethasone (Decadron Tab*) 8 mg PO DAILY [facility] Last Admin: 01/28/18 08:53 Dose: 8 mg Heparin Sodium (Porcine) (Heparin Flush Port (Ivad)) 5 ml FLUSH DAILY [facility] PRN Reason: Protocol Last Admin: 01/28/18 08:56 Dose: 5 ml Piperacillin Sod/Tazobactam (Sod 3.375 gm/ Sodium Chloride) 100 mls @ 200 mls/ hr IVPB Q6H [facility] Last Admin: 01/28/18 05:11 Dose: 200 mls/hr Loperamide HCl (Imodium Cap*) 2 mg PO Q4H PRN PRN Reason: DIARRHEA Mometasone Furoate/Formoterol Fumar (Dulera 200/5 Mdi*) 2 puff INH BID [facility] PRN Reason: Protocol Last Admin: 01/28/18 07:33 Dose: 2 puff Morphine Sulfate (Ms Contin(*)) 15 mg PO Q12H [facility] Last Admin: 01/28/18 08:54 Dose: 15 mg Ondansetron HCl (Zofran Tab*) 4 mg PO Q8H PRN PRN Reason: NAUSEA Polyethylene Glycol/Electrolytes (Miralax*) 17 gm PO BEDTIME [facility] Last Admin: 01/27/18 21:05 Dose: Not Given Potassium Chloride (Klor Con Er Tab*) 20 meq PO DAILY [facility] Last Admin: 01/28/18 08:54 Dose: 20 meq Tiotropium [place] (Spiriva Cap.Inh*) 1 cap INH DAILY [facility] Last Admin: 01/28/18 07:34 Dose: 1 cap Vital Signs - 8 hr 01/28/18 01/28/18 01/28/18 03:16 07:33 07:53 Temperature 98.4 F 97.2 F Pulse Rate 73 72 65 Respiratory 16 16 Rate Blood Pressure 94/50 106/51 (mmHg) O2 Sat by Pulse 94 96 Oximetry 01/28/18 08:54 Temperature Pulse Rate Respiratory 18 Rate Blood Pressure (mmHg) O2 Sat by Pulse Oximetry Oxygen Devices in Use Now: None Appearance: Alert, in recliner. Neck collar in place. In good spirits. Looks comfortable. Extremities: No Edema, No Clubbing, Cyanosis, - Skin: No Rash or Ulcers, No Nodules or Sclerosis, - Neurological: Alert and Oriented x 3, NL Sensation Result Diagrams: 01/27/18 06:30 01/27/18 06:30 Additional Lab and Data: Lab Results 01/19/18 01/19/18 01/19/18 Range/Units 08:40 08:40 08:40 WBC 18.5 H (3.5-10.8) 10^3/ul RBC 2.86 L (4.0-5.4) 10^6/ul Hgb 9.1 L (14.0-18.0) g/dl Hct 27 L (42-52) % MCV 95 H (80-94) fL MCH 32 H (27-31) pg MCHC 33 (31-36) g/dl RDW 23 H (10.5-15) % Plt Count 82 L D (150-450) 10^3/ul MPV 8.7 (7.4-10.4) um3 Neut % (Auto) 92.5 H (38-83) % Lymph % (Auto) 4.6 L (25-47) % [place] % (Auto) 2.5 (0-7) % Eos % (Auto) 0.1 (0-6) % Baso % (Auto) 0.3 (0-2) % Absolute Neuts (auto) 17.1 H (1.5-7.7) 10^3/ul Absolute Lymphs (auto) 0.9 L (1.0-4.8) 10^3/ul Absolute Monos (auto) 0.5 (0-0.8) 10^3/ul Absolute Eos (auto) 0 (0-0.6) 10^3/ul Absolute Basos (auto) 0.1 (0-0.2) 10^3/ul Absolute Nucleated RBC 0.1 10^3/ul Nucleated RBC % 0.5 INR (Anticoag Therapy) 1.21 H (0.77-1.02) APTT 35.3 (26.0-36.3) seconds Sodium 135 L (139-145) mmol/L Potassium 4.0 (3.5-5.0) mmol/L Chloride 101 (101-111) mmol/L Carbon Dioxide 27 (22-32) mmol/L Anion Gap 7 (2-11) mmol/L BUN 20 (6-24) mg/dL Creatinine 0.52 L (0.67-1.17) mg/dL Est GFR ( Amer) 199.2 (>60) Est GFR (Non-Af Amer) 154.9 (>60) BUN/Creatinine Ratio 38.5 H (8-20) Glucose 114 H (70-100) mg/dL Lactic Acid (0.5-2.0) mmol/L Calcium 7.4 L (8.6-10.3) mg/dL Magnesium 1.6 L (1.9-2.7) mg/dL Total Bilirubin 0.40 (0.2-1.0) mg/dL AST 30 (13-39) U/L ALT 27 (7-52) U/L Alkaline Phosphatase 362 H (34-104) U/L Troponin I 0.15 H* (<0.04) ng/mL C-Reactive Protein 58.80 H (< 5.00) mg/L Total Protein 4.7 L (6.4-8.9) g/dL Albumin 2.6 L (3.2-5.2) g/dL Globulin 2.1 (2-4) g/dL Albumin/Globulin Ratio 1.2 (1-3) Blood Type Antibody Screen 01/19/18 01/19/18 01/19/18 Range/Units 08:40 08:40 10:15 WBC (3.5-10.8) 10^3/ul RBC (4.0-5.4) 10^6/ul Hgb (14.0-18.0) g/dl Hct (42-52) % MCV (80-94) fL MCH (27-31) pg MCHC (31-36) g/dl RDW (10.5-15) % Plt Count (150-450) 10^3/ul MPV (7.4-10.4) um3 Neut % (Auto) (38-83) % Lymph % (Auto) (25-47) % [place] % (Auto) (0-7) % Eos % (Auto) (0-6) % Baso % (Auto) (0-2) % Absolute Neuts (auto) (1.5-7.7) 10^3/ul Absolute Lymphs (auto) (1.0-4.8) 10^3/ul Absolute Monos (auto) (0-0.8) 10^3/ul Absolute Eos (auto) (0-0.6) 10^3/ul Absolute Basos (auto) (0-0.2) 10^3/ul Absolute Nucleated RBC 10^3/ul Nucleated RBC % INR (Anticoag Therapy) (0.77-1.02) APTT (26.0-36.3) seconds Sodium (139-145) mmol/L Potassium (3.5-5.0) mmol/L Chloride (101-111) mmol/L Carbon Dioxide (22-32) mmol/L Anion Gap (2-11) mmol/L BUN (6-24) mg/dL Creatinine (0.67-1.17) mg/dL Est GFR ( Amer) (>60) Est GFR (Non-Af Amer) (>60) BUN/Creatinine Ratio (8-20) Glucose (70-100) mg/dL Lactic Acid 1.0 (0.5-2.0) mmol/L Calcium (8.6-10.3) mg/dL Magnesium (1.9-2.7) mg/dL Total Bilirubin (0.2-1.0) mg/dL AST (13-39) U/L ALT (7-52) U/L Alkaline Phosphatase (34-104) U/L Troponin I 0.10 H* (<0.04) ng/mL C-Reactive Protein (< 5.00) mg/L Total Protein (6.4-8.9) g/dL Albumin (3.2-5.2) g/dL Globulin (2-4) g/dL Albumin/Globulin Ratio (1-3) Blood Type A Negative Antibody Screen Negative Microbiology and Other Data: Microbiology 01/20/18 08:30 Gram Stain - Final Sputum Sputum Culture - Final Normal Emelina Assess/Plan/Problems-Billing Assessment: 77 yo man with history of PVD, aortic valve replacement, afib, pacemaker and 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 - Patient Problems (1) Metastatic adenocarcinoma Current Visit: Yes Status: Acute Code(s): C79.9 - SECONDARY MALIGNANT NEOPLASM OF UNSPECIFIED SITE SNOMED Code(s): 800811874 Comment: --Gastric, surgery 09/11 in [facility], [address] positive. Pleural fluid showed signet-rign adenoca. Resected tumor in [place] could be sent for [employer] testing. (2) Closed C2 fracture Current Visit: Yes Status: Acute Code(s): S12.100A - UNSP DISP FX OF SECOND CERVICAL VERTEBRA, INIT FOR CLOS FX SNOMED Code(s): 064427614 Comment: --With Pelvic fractures --Appreciate Dr. Samayoa's input (ortho) --Conservative treatment for C2 fracture. --To follow up in neurology office with new XR of C spine in 1 more weeks (Dr. Little) Likely pathologic fx's. (3) Steroid long-term use Current Visit: Yes Status: Acute Code(s): FFX9558 - SNOMED Code(s): 044023154 Comment: DXM taper started 01/27. Change to 2 mg tid on 01/29. (4) Acute respiratory failure with hypoxia Current Visit: Yes Status: Acute Code(s): J96.01 - ACUTE RESPIRATORY FAILURE WITH HYPOXIA SNOMED Code(s): 33367317 Comment: likely from pneumonia/effusion Not clear if infectious but will complete 1 week tx with oral amox/clav at home for 5 days. Status and Disposition: PT will test patient on stairs 01/28. I will also talk to his , consider discharge home. I spoke to Dr. Beyer who felt patient did not have need for the PMRU.
--- NOTE | 2018-01-28 15:25 | PN ---
"Progress Note - Progress Note Date of Service: 01/28/18 Note: This report was requested by: Tal Melendez | Reference #: [id number] Others' Prescriptions Patient Name: Carlton Guaman Date: 1940 Address: [address] [place] [address] Sex: Male Rx Written Rx Dispensed Drug Quantity Days Supply Prescriber Name 01/06/2018 01/06/2018 oxycodone-acetaminophen 5-325 mg tablet 12 3 [place] 05/27/2017 05/27/2017 hydrocodone-acetaminophen 5-325 mg tablet 21 5 Deepti Victoria K"
--- NOTE | 2018-01-28 15:34 | PN ---
Progress Note - Progress Note Date of Service: 01/28/18 Note: Time spent on discharge 50 minutes.
[2018-01-28 16:09] VITALS: BP 98/58
--- NOTE | 2018-01-28 23:25 | DS ---
CC: Kiran DISCHARGE SUMMARY: DATE OF ADMISSION: DATE OF DISCHARGE: 01/28/18 HISTORY: This 77-year-old man presented after a fall leg. He fell in the bathtub. His right leg gave out. He did not lose consciousness. He had been taking antibiotics for pneumonia after being in the hospital recently. He was found to have the C2 fracture in the emergency room, which was nondisplaced. It was felt likely to be pathologic. He had a recent positive bone scan. He was taking moxifloxacin at home. He was continued on levofloxacin and changed later to piperacillin and tazobactam. Clinically, he has pneumonia that resolved quickly or was never present. He had a thoracentesis from Dr. Payton. He felt better after that. 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 He was taking enoxaparin for deep venous thrombosis. His family felt he did not want to take it as he required transfusions; however, I think he is certainly at high risk for DVTs, much less mobile now and he is known to have extensive metastatic adenocarcinoma. He did well with physical therapy. Dr. Lee evaluated him and place the cervical collar on him. He would like him to come back about a week after discharge for further x-rays and evaluation. Oncology group also evaluated him. They felt it might be worthwhile testing his tumor to see if he had a target for targeted chemotherapy. The tissue can be sent to [facility] for testing. FINAL DIAGNOSES: 1. Metastatic gastric cancer with bony metastasis and pathologic fractures and malignant pleural effusion. 2. Possible pneumonia. 3. History of deep venous thrombosis. 4. Chronic obstructive pulmonary disease. DISCHARGE MEDICATIONS: 1. Dexamethasone 2 mg t.i.d. to be tapered. 2. Heparin flush for port every day. 3. Morphine ER 15 mg b.i.d. 4. Polyethylene glycol 17 g h.s. 5. Amoxicillin clavulanate 875 mg for 5 days. 6. Potassium chloride 20 mEq daily. 7. Enoxaparin 80 mg subcu daily. 8. Tiotropium 1 capsule daily. 9. Pravastatin 40 mg daily. 10. Budesonide formoterol 2 puffs b.i.d. 11. Albuterol inhaler 2 puffs 74 hours p.r.n. 12. Ondansetron 4 mg every 8 hours p.r.n. 13. Oxycodone/acetaminophen 5/325 one every 6 hours p.r.n. 14. Vitamin D 1000 units daily. 15. Loperamide 2 mg every 4 hours p.r.n. 16. Docusate 100 mg b.i.d. 17. Methocarbamol 500 mg 4 times a day p.r.n. [id number]/[facility] #: [id number] [facility]
[2018-01-29] MEDS ORDERED: Dexamethasone TAB* 1 MG PO SCH (09:00)
== END 2018-01-28 16:20 | disposition home or self-care (01) | DRG 542 ==
LOC: ED 06:48 → SSU 14:53
PROVIDERS: ADMIT Internal Medicine; ATTEND Internal Medicine
PROC: 0W9B3ZZ Drainage of Left Pleural Cavity, Percutaneous Approach (ICD-10-PCS; principal; 2018-01-25)
DX: M84.58XA Pathological fracture in neoplastic disease, other specified site, initial encounter for fracture (principal); J96.01 Acute respiratory failure with hypoxia; C79.51 Secondary malignant neoplasm of bone; C16.9 Malignant neoplasm of stomach, unspecified; J90 Pleural effusion, not elsewhere classified; I82.401 Acute embolism and thrombosis of unspecified deep veins of right lower extremity; Z88.8 Allergy status to other drugs, medicaments and biological substances; Z95.810 Presence of automatic (implantable) cardiac defibrillator; Z96.89 Presence of other specified functional implants; Z95.2 Presence of prosthetic heart valve; I48.91 Unspecified atrial fibrillation; M19.90 Unspecified osteoarthritis, unspecified site; N40.0 Benign prostatic hyperplasia without lower urinary tract symptoms; J44.9 Chronic obstructive pulmonary disease, unspecified; E78.5 Hyperlipidemia, unspecified; I73.9 Peripheral vascular disease, unspecified; Z90.81 Acquired absence of spleen; Z90.3 Acquired absence of stomach [part of]; Z90.411 Acquired partial absence of pancreas; Z87.891 Personal history of nicotine dependence
CPT/HCPCS: 36415; 70470; 71045; 72070; 72100; 72125; 72128; 72131; 72190; 72192; 76604; 80048; 80053; 81003; 81015; 82607; 82728; 82945; 83540; 83550; 83605; 83615; 83735; 83986; 84157; 84484; 85025; 85060; 85610; 85730; 86140; 86850; 86900; 86901; 87040; 87070; 87086; 87205; 88112; 88305; 88341; 88342; 88360; 89051; 93005; 94640; 99223; 99232; 99233; 99284; A9270-GY; G8978-GP-CI; G8978-GP-CK; G8978-GP-CL; G8979-GP-CI; G8979-GP-CJ; J1642; J1940; J2270; J2405; J2543; J3010; J3370; J3475; J8540; P9047; Q9967

== ENCOUNTER 2018-02-17 10:58 | Inpatient (IN) | payer MEDICARE, BC ==
[2018-02-17] MEDS ORDERED: HYDROmorphone INJ* 1 MG/ML CARPUJECT SYRINGE IV ONE (13:02)
[2018-02-17] MEDS ORDERED: HYDROmorphone INJ* 2 MG/ML CARPUJECT SYRINGE ONE (13:05)
[2018-02-17] MEDS ORDERED: HYDROmorphone INJ* 2 MG/ML CARPUJECT SYRINGE IV SLOW PU ONE (13:07)
[2018-02-17] MEDS ORDERED: Polyethylene Glycol 3350* 17 GM PACKET PO PRN (16:12)
[2018-02-17] MEDS ORDERED: Ondansetron TAB* 4 MG PO PRN (16:12)
[2018-02-17] MEDS ORDERED: Loperamide CAP* 2 MG PO PRN (16:12)
[2018-02-17] MEDS ORDERED: Albuterol HFA INHALER* 8 gm MDI INH PRN (16:12)
[2018-02-17] MEDS: Morphine ORAL CONCENTRATE* 5 MG/0.25 ML ORAL.SYRIN SL PRN ×3 (17:25→22:13)
[2018-02-17 17:42] VITALS: BP 133/63
--- NOTE | 2018-02-17 18:28 | ED ---
Saira Carr Gabriel, scribed for David Brasher MD on 02/17/18 at 1123 . Back Pain - HPI Summary HPI Summary: This patient is a 77 year old M BIBA to [facility] accompanied by his family c/o increased pain due to terminal illness that began 2 days ago. The patient rates the pain 8/10 in severity. Patient reports back pain and neck pain. Pt no longer sees oncology because his disease is terminal. The oncologist from [place] prescribes the pain medication which consists of 30mg oral morphine BID as well as a sublingual liquid for breakthrough pain, for the last month. The patient saw Dr. Rawls yesterday who suggested hospice care. Pts family reports increased weakness for the last couple days but they are not interested in a work up for this. - History of Current Complaint Chief Complaint: EDGeneral Stated Complaint: BACK PAIN Time Seen by Provider: 02/17/18 11:17 Hx Obtained From: Patient, Family/Manager Trainee Onset/Duration: Lasting Days - 2, Still Present Onset/Duration: Still Present Timing: Constant Back Pain Location: Is Diffuse Severity Initially: Severe Severity Currently: Severe Pain Intensity: 8 Pain Scale Used: 0-10 Numeric Associated Signs And Symptoms: Positive: Other - back and neck pain - Allergies/Home Medications Allergies/Adverse Reactions: Allergies Allergy/AdvReac Type Severity Reaction Status Date / Time amiodarone Allergy Hallucinati Verified 01/06/18 14:38 ons Home Medications: Home Medications Cholecalciferol (Vitamin D3) [Vitamin D3] 1,000 unit PO DAILY 02/17/18 [History Confirmed 02/17/18] Dexamethasone TAB* [Decadron TAB*] 4 mg PO BID 02/17/18 [History Confirmed 02/17] Dexamethasone TAB* [Decadron TAB*] 8 mg PO BID PRN 02/17/18 [History Confirmed 02/17/18] Morphine 100/5ml 0.5 - 1 ml PO Q2HR PRN MDD 240 mg 02/17/18 [History Confirmed 02/17/18] Morphine Sulfate 15 mg PO Q8HR MDD 45 mg 02/17/18 [History Confirmed 02/17/18] Morphine Sulfate 30 mg PO Q12HR MDD 60 mg 02/17/18 [History Confirmed 02/17/18] PMH/Surg Hx/FS Hx/Imm Hx Endocrine/Hematology History: Denies: Hx Anticoagulant Therapy - stopped lovenox 3 days ago, Hx Diabetes Cardiovascular History: Reports: Hx Pacemaker/ICD, Hx Valvular Heart Disease - valve replacement, Other Cardiovascular Problems/Disorders - Hx blood clot posterior neck; NEGATIVE: DVT Denies: Hx Hypertension Respiratory History: Reports: Hx Chronic Obstructive Pulmonary Disease (COPD) GI History: Reports: Other GI Disorders - stomach cancer History: Denies: Hx Renal Disease Musculoskeletal History: Reports: Hx Back Problems - DDD lumbar spine Sensory History: Denies: Hx Legally Blind Opthamlomology History: Denies: Hx Legally Blind Neurological History: Reports: Other Neuro Impairments/Disorders - C-SPINE FX 2017 - Cancer History Cancer Type, Location and Year: Stomach cancer Hx Chemotherapy: Yes - Surgical History Surgery Procedure, Year, and Place: stent in left groin Infectious Disease History: No Infectious Disease History: Denies: Hx of Known/Suspected MRSA, Traveled Outside the [place] in Last 30 Days - Family History Known Family History: Positive: Other - DVT - Social History Lives: With Family Alcohol Use: None Hx Substance Use: No Substance Use Type: Reports: None Smoking Status (MU): Former Smoker Review of Systems Musculoskeletal: Other - back and neck pain Positive: Weakness All Other Systems Reviewed And Are Negative: Yes Physical Exam - Summary Physical Exam Summary: Appearance: The patient is cachectic and appears sleepy but arouse to voice. Skin: The skin is warm and dry and skin color reflects adequate perfusion. HEENT: The head is normocephalic and atraumatic. The pupils are pin point. The conjunctivae are clear and without drainage. Nares are patent and without drainage. Mouth reveals moist mucous membranes and the throat is without erythema and exudate. The external ears are intact. The ear canals are patent and without drainage. The tympanic membranes are intact. Neck: the neck is supple with full range of motion and non-tender. There are no carotid bruits. There is no neck vein distension. Respiratory: Chest is non-tender. Lungs are clear to auscultation and breath sounds are symmetrical and equal. Cardiovascular: Heart is regular rate and rhythm. There is no murmur or rub auscultated. There is no peripheral edema and pulses are symmetrical and equal. Abdomen: The abdomen is soft and non-tender. There are normal bowel sounds heard in all four quadrants and there is no organomegaly palpated. Musculoskeletal: There is no back tenderness noted. Extremities are non-tender with full range of motion. There is good capillary refill. There is no peripheral edema or calf tenderness elicited. Neurological: Patient is alert and oriented to person, place and time. The patient has symmetrical motor strength in all four extremities. Cranial nerves are grossly intact. Deep tendon reflexes are symmetrical and equal in all four extremities. Psychiatric: The patient has an appropriate affect and does not exhibit any anxiety or depression. Triage Information Reviewed: Yes Vital Signs On Initial Exam: Initial Vitals Temp Pulse Resp BP Pulse Ox 98.4 F 96 16 113/75 98 02/17/18 11:06 02/17/18 11:06 02/17/18 11:06 02/17/18 11:06 02/17/18 11:06 Vital Signs Reviewed: Yes Diagnostics - Vital Signs Vital Signs Temp Pulse Resp BP Pulse Ox 02/17/18 11:09 64 17 96 02/17/18 11:06 98.4 F 96 16 113/75 98 - Laboratory Lab Statement: Any lab studies that have been ordered have been reviewed, and results considered in the medical decision making process. Back Pain Course/Dx - Course Course Of Treatment: Mr. 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 He alternates between pain or essentially being asleep from the medication. We got a social service consult to try to get him set up with hospice but there is no bed available until tomorrow. His pain is intractable in the here in the emergency department without giving him dangerous amounts of narcotics and I asked the hospitalist service to evaluate him for admission. - Diagnoses Provider Diagnoses: Intractable pain - Provider Notifications Discussed Care Of Patient With: Paolo Monroy Time Discussed With Above Provider: 15:12 Discharge - Sign-Out/Discharge Documenting (check all that apply): Discharge/Admit/Transfer - Discharge Plan Condition: Fair Disposition: ADMITTED TO [facility] - Billing Disposition and Condition Condition: FAIR Disposition: [facility] [place] The documentation as recorded by the Saira salazar Gabriel accurately reflects the service I personally performed and the decisions made by me, David Brasher MD.
[2018-02-17] MEDS: Dexamethasone TAB* 4 MG PO SCH (20:26)
[2018-02-17] MEDS: Docusate CAP* 100 MG PO SCH (20:26)
[2018-02-17] MEDS: Mometasone/Formoter 200/5 MDI INH SCH (20:34)
[2018-02-17] MEDS: LORazepam TAB(*) 0.5 MG PO PRN (21:04)
--- NOTE | 2018-02-17 21:28 | HP ---
CC: Dr. Gianfranco Lou; Sahil Beck MD * HISTORY AND PHYSICAL: DATE OF ADMISSION: 02/17/18 PRIMARY CARE PROVIDER: Sahil Beck MD ATTENDING PHYSICIAN: Paolo Monroy MD * (dictated by Kwesi Iqbal NP) CHIEF COMPLAINT: Intractable pain. HISTORY OF PRESENT ILLNESS: Mr. Stark is a 77-year-old male with past medical history significant for aortic stenosis status post porcine aortic valve replacement, history of gastric adenocarcinoma, atrial fibrillation, osteoarthritis, hyperlipidemia, COPD, DVT, peripheral vascular disease, peptic ulcer disease, who was previously hospitalized at [facility] from until 01/28/18. At that time, the patient had just been 1 day post discharge from [facility] where he had been admitted the week prior for pneumonia and a parapneumonic effusion. The patient went home on 01/18/18. 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 While walking into the living room, his right leg suddenly gave out and he fell on to the carpeted floor on to his right side, immediately having right hip pain. He had no loss of consciousness and was admitted by the hospitalist after he was found to have a nondisplaced acute fracture involving the inferior aspect of the C2 vertebral body, a mild compression fracture of the superior endplate of the C5 vertebrae likely old, decreased density of the vertebra with more focal areas of decreased density in the C5 and C6 vertebral bodies suspicious for metastatic disease. Again, the patient was discharged on 01/28/18. He states that he has recently followed up with his oncologist and Dr. Rawls and was told that he was not a candidate for radiation therapy previously and on old bone scan from [facility] records from 12/18/17, the patient was found to have multifocal osseous metastatic disease with specific involvement of the lower cervical spine, thoracolumbar spine, sternum, bilateral ribs, left scapula, and right hemipelvis. While at home since his discharge, the patient's pain has been getting worse, especially this week. He was initiated on morphine 30 mg oral twice daily in addition to morphine solution 100 mg of 5 mL, 0.5 to 1 mL every 4 hours. The patient's states that she gave him 1 dose of the solution and felt that he slept for a long time and was possibly more confused when he woke up, so she had not given him anymore of the morphine solution. Additionally yesterday, Dr. Lou with [facility] sent in an additional prescription for morphine 15 mg 3 times daily to take in addition to the 30 mg twice daily. This has not yet been picked up by the patient's family. The patient denies any fevers, chills, chest pain, shortness of breath, nausea, vomiting, diarrhea. He reports a generalized 8/10 pain. Due to his continued pain, EMS was called to bring the patient to the hospital. The patient received 150 mcg of fentanyl by EMS. While in the emergency room, he received IV Dilaudid. He was still complaining of 8/10 pain. His felt as though she was unable to take care of him anymore and they were wishing to pursue comfort care and hospice services. Social work was consulted and they put out a referral to hospice. It is also to note that previously on his admission, he was seen in consultation by Dr. Mcgarry at which time he agreed to do not resuscitate, do not intubate and that he qualified for hospice services at that time based on his gastric adenocarcinoma with extensive osseous metastatic disease. The hospitalists were asked to evaluate the patient for admission. PAST MEDICAL HISTORY: 1. Aortic stenosis. 2. Atrial fibrillation. 3. Osteoarthritis. 4. Hyperlipidemia. 5. COPD. 6. DVT. 7. Gastric adenocarcinoma. 8. Peripheral vascular disease. 9. Peptic ulcer disease. 10. History of tobacco abuse. 11. BPH. PAST SURGICAL HISTORY: 1. Status post G tube placement. 2. Status post pacemaker insertion. 3. Status post porcine aortic valve replacement. 4. Status post bilateral lower extremity stents. 5. 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 HOME MEDICATIONS: Include: 1. Vitamin D3, 1000 units oral daily. 2. Spiriva 18 mcg 1 capsule inhalation daily. 3. Pravastatin 40 mg oral daily. 4. Potassium chloride 20 mEq oral daily. 5. MiraLAX 17 g oral daily. 6. Zofran 4 mg oral every 8 hours as needed for nausea, vomiting. 7. Morphine 100/5 mL 0.5 to 1 mL every 2 hours as needed for pain. 8. Morphine sulfate ER 30 mg oral every 12 hours. 9. Morphine sulfate ER 15 mg oral every 8 hours. 10. Imodium 2 mg oral every 4 hours as needed for diarrhea. 11. Colace 100 mg oral twice daily. 12. Dexamethasone 4 mg oral twice daily. 13. Dexamethasone 8 mg oral twice daily 3 days after chemo. 14. Symbicort 160 mg/1.5, 2 puffs inhalation twice daily. 15. Albuterol HFA inhaler 2 puffs inhalation every 4 hours as needed for shortness of breath. ALLERGIES: AMIODARONE. FAMILY HISTORY: The patient's mother and paternal grandmother had a history of heart disease. The patient's father had a history of diabetes mellitus. The patient's mother had a history of colon cancer. SOCIAL HISTORY: The patient is a former smoker. He quit smoking approximately 20 years ago. Prior to that, he has an approximate 40-year smoking history. He denies alcohol, recreational drug use. His , Tamanna Stark, will be surrogate decision maker in the event he is unable to make decisions for himself. REVIEW OF SYSTEMS: I performed an 11-point review of systems. Also reviewing his symptoms with his , as he was mostly resting during the interview, although pertinent positives and negatives are mentioned in the history of present illness. The remaining review of systems is negative. PHYSICAL EXAMINATION GENERAL APPEARANCE: The patient is resting, pleasant, appears to be in no acute distress. VITAL SIGNS: Temperature 98.4, heart rate 98, respiratory rate 20, O2 sat 97% on room air, blood pressure 131/76. HEENT: Normocephalic, atraumatic. Pupils are equal and reactive to light. Extraocular movements are intact. NECK: His neck is in a [place] J collar. RESPIRATORY: There is no accessory muscle use but the patient does have some expiratory wheezing bilateral. CARDIOVASCULAR: Regular rate and rhythm. S1 and S2 are heard. There are no murmurs, rubs, or gallops heard. ABDOMEN: Soft, nontender, nondistended. There are bowel sounds present x4. EXTREMITIES: There is no lower extremity edema. DP and PT pulses are 1+ and symmetric. MUSCULOSKELETAL: There is no clubbing or cyanosis noted. The patient exhibits good strength in all extremities. NEUROLOGICAL: The patient is alert and oriented to person, place, and time. Cranial nerves are grossly intact. PSYCHOLOGICAL: The patient is calm and cooperative. SKIN: The patient has no rashes or abnormalities seen. He does have some mild purplish discoloration to his feet that his states is always present due to his poor circulation. DIAGNOSTIC STUDIES/LABORATORY DATA: None. IMPRESSION: Mr. Stark is a 77-year-old male with past medical history significant for aortic stenosis, atrial fibrillation, chronic obstructive pulmonary disease, gastric adenocarcinoma, who presents to the emergency room with complaints of intractable pain in the setting of metastatic cancer. He will be admitted as an observation for intractable pain. ASSESSMENT/PLAN: 1. Intractable pain. I suspect the patient's pain is secondary to his bone metastasis. His primary team has been working on adjusting his medications at home, but it appears that he has not been taking the max of what he could be taking at home. He has been taking 30 mg oral twice a day of morphine extended release and took 1 dose of morphine concentrate, which his felt he was a little sleepy and confused, so did not give him more. Additionally, the primary care provider added an additional morphine sulfate ER 15 mg oral every 8 hours that the patient has not picked up from the pharmacy and has not been taking. He had some relief from his pain with IV fentanyl and Dilaudid that he had. I would like to try to control his pain without IV medication so that he can have transitioned to either a usp for hospice or the hospice care residence. At this point, the family is requesting comfort measures only. The plan will be to continue the patient's morphine 15 mg oral 3 times a day in addition to morphine sulfate concentrate. I will also order Ativan. We can consider increasing the morphine extended release if needed or adjusting the morphine concentrate if needed. 2. Comfort care. At this point, the family would like the patient on comfort measures. They want no further workup or labs done. They would like to continue his tube feeding until he is signed on to hospice at which time they will make a decision to stop his tube feeding. We will continue pain control as above. Social work has been consulted and a hospice referral has been sent. 3. Hyperlipidemia. For now, we will continue the patient on his home statins. 4. Chronic obstructive pulmonary disease. The patient does not have signs of an acute chronic obstructive pulmonary disease exacerbation at this time. He will be continued on his home Spiriva and as needed albuterol and Symbicort. 5. Gastric adenocarcinoma. The patient recently had a consultation with Dr. Rawls regarding possible radiation therapy. At that consult, Dr. Rawls recommended palliative services and now the family is seeking palliative services. 6. Fluids, electrolytes, and nutrition. The patient will be on a comfort care diet as he does continue to take in some p.o. He will also be continued on Jevity 1.5 at 85 mL an hour overnight for 12 hours until the family decides to discontinue that. 7. Code status. Do not resuscitate, do not intubate. 8. DVT prophylaxis. The patient is at highest risk but in the setting of comfort care, we will not do DVT prophylaxis. 9. Disposition. Observation. TIME SPENT: Time for this admission was approximately 60 minutes, greater than half of that was spent with the patient, , and daughter discussing medications, past medical history, the events leading up to his arrival today, and performing a physical examination. The case has been reviewed with the attending, Dr. Monroy, who agrees with the plan of care. KWESI IQBAL, KATHRINE [id number]/[facility] #: [id number] ANA MARÍA
[2018-02-17] MEDS ORDERED: Morphine ORAL.SOLN 10 mg* 2 MG/ML UDC 5 ml PO SCH (22:00)
[2018-02-18] MEDS: Morphine ORAL CONCENTRATE* 5 MG/0.25 ML ORAL.SYRIN SL PRN ×6 (01:25→20:23)
[2018-02-18] MEDS ORDERED: Morphine INJ* 10 MG/ML 1 ML CARPUJECT IV ONE (01:50)
[2018-02-18] MEDS: LORazepam TAB(*) 0.5 MG PO PRN (05:56)
[2018-02-18] MEDS ORDERED: Morphine TAB Extended Release (*) 15 MG TAB.ER PO SCH (06:00)
[2018-02-18] MEDS: Mometasone/Formoter 200/5 MDI INH SCH (08:14)
[2018-02-18] MEDS ORDERED: Atorvastatin* 10 MG TAB PO SCH (09:00)
[2018-02-18] MEDS ORDERED: Enoxaparin(*) 80 MG/0.8 ML SYR SUBCUT SCH (09:00)
[2018-02-18] MEDS ORDERED: Potassium Chlor TAB* 20 MEQ TAB.ER PO SCH (09:00)
[2018-02-18] MEDS ORDERED: Tiotropium CAP.INH* CAP.INH/18 MCG (USE ORDER SET !) INH SCH (09:00)
--- NOTE | 2018-02-18 09:10 | PN ---
Subjective Date of Service: 02/18/18 Interval History: Mr. Stark responds to stimulus minimally and seems uncomfortable. Objective Active Medications: Albuterol (Ventolin Hfa Inhaler*) 2 puff INH Q4H PRN Atorvastatin Calcium (Lipitor*) 10 mg PO DAILY TORREY Dexamethasone (Decadron Tab*) 4 mg PO BID TORREY Docusate Sodium (Colace Cap*) 100 mg PO BID TORREY Loperamide HCl (Imodium Cap*) 2 mg PO Q4H PRN Lorazepam (Ativan Tab(*)) 0.5 mg PO Q6H PRN Mometasone Furoate/Formoterol Fumar (Dulera 200/5 Mdi*) 2 puff INH BID TORREY Morphine Sulfate (Morphine Oral Concentrate*) 5 mg SL Q2H PRN Morphine Sulfate (Ms Contin(*)) 15 mg PO Q8H TORREY Ondansetron HCl (Zofran Tab*) 4 mg PO Q8H PRN Polyethylene Glycol/Electrolytes (Miralax*) 17 gm PO BEDTIME PRN Potassium Chloride (Klor Con Er Tab*) 20 meq PO DAILY TORREY Tiotropium [place] (Spiriva Cap.Inh*) 1 cap INH DAILY TORREY Vital Signs: Temp Pulse Resp BP Pulse Ox 97.6 F 121 24 133/63 100 02/17/18 17:35 02/18/18 04:24 02/18/18 08:34 02/17/18 17:35 02/18/18 04:24 Oxygen Devices in Use Now: Nasal Cannula Appearance: Male lying in bed, appears in pain Respiratory: Symmetrical Chest Expansion and Respiratory Effort Cardiovascular: No Edema Neurological: - - Awakens minimally to voice Assess/Plan/Problems-Billing Assessment: Mr. Stark is a 77 yo M with a PMH of gastric adenocarcinoma with bony metastasis who was admitted on 02/17/18 with intractable pain. - Patient Problems (1) Pain Comment: - Switch to IV morphine gtt for better pain control as patient not tolerating oral intake well. (2) Metastatic adenocarcinoma Comment: - No longer undergoing treatment (3) S/P gastrectomy Comment: - Tube feeds overnight, full liquids as tolerated (4) DVT prophylaxis Comment: - Comfort care (5) DNR (do not resuscitate) Comment:
[2018-02-18] MEDS: Dexamethasone TAB* 4 MG PO SCH (11:01)
[2018-02-18] MEDS: Docusate CAP* 100 MG PO SCH (11:01)
[2018-02-18] MEDS: LORazepam INJ* 2 MG/ML 1 ML VIAL IV PUSH PRN ×2 (12:17→17:10)
[2018-02-18] MEDS ORDERED: Morphine PCA ADULT* 5 MG/ML 30 ML PCA SCH ×2 (14:00→14:34)
[2018-02-18] MEDS ORDERED: Atropine 1% (ORAL/SL)* 15 ML BTL SL PRN (19:42)
[2018-02-19] MEDS: Morphine ORAL CONCENTRATE* 5 MG/0.25 ML ORAL.SYRIN SL PRN (03:39)
[2018-02-19] MEDS ORDERED: Morphine INJ* 10 MG/ML 1 ML CARPUJECT IV ONE (07:35)
[2018-02-19] MEDS ORDERED: Morphine PCA ADULT* 5 MG/ML 30 ML PCA SCH ×3 (07:35→10:07)
--- NOTE | 2018-02-19 08:53 | PN ---
Subjective Date of Service: 02/19/18 Interval History: Mr. Stark continues to appear somewhat uncomfortable with a slightly furrowed brow and respirations of 20 with HR around 110. Objective Active Medications: Albuterol (Ventolin Hfa Inhaler*) 2 puff INH Q4H PRN Atropine Sulfate (Atropine 1% (Oral/Sl)*) 2 drop SL Q2H PRN Morphine Sulfate (Morphine Yarn Examiner Adult* 5 Mg/Ml) 30 mls @ 0 mls/hr MACHINE STEMMER .change Q24H TORREY; Per Protocol Lorazepam (Ativan Inj*) 0.5 mg IV PUSH Q6H PRN Morphine Sulfate (Morphine Oral Concentrate*) 10 mg SL Q1H PRN Ondansetron HCl (Zofran Tab*) 4 mg PO Q8H PRN Vital Signs: Temp Pulse Resp BP Pulse Ox 97.6 F 132 22 133/63 91 02/17/18 17:35 02/19/18 07:12 02/19/18 08:11 02/18/18 15:30 02/19/18 07:12 Oxygen Devices in Use Now: Nasal Cannula Appearance: Male lying in bed, appears midly uncomfortable Neck: Trachea Midline Respiratory: Symmetrical Chest Expansion and Respiratory Effort Cardiovascular: No Edema Neurological: - - Minimally responsive to stimulus Assess/Plan/Problems-Billing Assessment: Mr. Stark is a 77 yo M with a PMH of gastric adenocarcinoma with bony metastasis who was admitted on 02/17/18 with intractable pain. - Patient Problems (1) Pain Comment: - Continue to increase morphine gtt. (2) Metastatic adenocarcinoma Comment: - No longer undergoing treatment (3) S/P gastrectomy Comment: - Tube feeds discontinued (4) DVT prophylaxis Comment: - Comfort care (5) DNR (do not resuscitate) Comment: Status and Disposition: Inpatient.
--- NOTE | 2018-02-23 09:25 | DS ---
CC: Dr. Beck.* HOSPITAL MEDICINE DISCHARGE SUMMARY: DATE OF ADMISSION: 02/17/18. DATE OF : 02/19/18 at 4:30 p.m. PRIMARY CARE PHYSICIAN: Dr. Beck. ATTENDING PHYSICIAN: Poncho Russo MD * (dictation provided by Patricia Guerin NP ). HOSPITAL COURSE: Mr. Stark is a 77-year-old male with a past medical history of gastric adenocarcinoma with osseous metastases who presented to the hospital on 02/17/18 due to intractable pain at home. Please see the dictated H and P from Qian Wagner for complete details. The patient was admitted to the hospital for pain control and consultation with palliative care services regarding starting hospice services at home. The patient was initially treated with sublingual morphine but when his pain remained uncontrolled, he was transitioned to over IV Morphine drip. The patient was minimally responsive on arrival and his mentation continued to decline during the hospitalization. I reviewed the goals of care with the patient's family and they confirmed desire for comfort only. Therefore, patient's tube feedings were discontinued. Mr. Stark's morphine drip was increased slowly over the intervening 24 to 48 hours to achieve comfort for him. At 4:30 p.m. on 02/19/18, the nursing staff called and stated that the patient had and this was confirmed by myself. Approximately 30 minutes was spent in the discharge of this patient, more than half the time was spent with the family at the bed side, during the day managing patient's pain medications and providing comfort at the time of . PATRIICA GUERIN NP [id number]/[facility] [place]: [id number] MTDD
== END 2018-02-19 16:30 | disposition expired | DRG 948 ==
LOC: ED 10:58 → MED 15:17 → OBSVTOIN 02-18 14:14
PROVIDERS: ADMIT Internal Medicine; ATTEND Internal Medicine
DX: G89.3 Neoplasm related pain (acute) (chronic) (principal); C79.51 Secondary malignant neoplasm of bone; C16.9 Malignant neoplasm of stomach, unspecified; Z51.5 Encounter for palliative care; E78.5 Hyperlipidemia, unspecified; J44.9 Chronic obstructive pulmonary disease, unspecified; Z66 Do not resuscitate; I48.91 Unspecified atrial fibrillation; M19.90 Unspecified osteoarthritis, unspecified site; I73.9 Peripheral vascular disease, unspecified; K27.9 Peptic ulcer, site unspecified, unspecified as acute or chronic, without hemorrhage or perforation; N40.0 Benign prostatic hyperplasia without lower urinary tract symptoms; Z87.891 Personal history of nicotine dependence; Z93.1 Gastrostomy status; Z95.3 Presence of xenogenic heart valve; Z86.718 Personal history of other venous thrombosis and embolism; Z95.0 Presence of cardiac pacemaker; Z90.3 Acquired absence of stomach [part of]; Z79.899 Other long term (current) drug therapy; Z88.8 Allergy status to other drugs, medicaments and biological substances; Z82.49 Family history of ischemic heart disease and other diseases of the circulatory system; Z83.3 Family history of diabetes mellitus; Z80.0 Family history of malignant neoplasm of digestive organs
CPT/HCPCS: 94640; 99284; A9270-GY; G0378; J1170; J2060; J2270; J8540